=== PATIENT | female | born 1970 | race Caucasian/White ===

== ENCOUNTER 2017-03-03 23:11 | Emergency (ER) | payer OTHER ==
--- NOTE | ~2017-03-03 | ER ---
PATIENT'S NAME: [facility] AGE: 47 Y [address] ROOM: [place] [address] LOCATION: [facility] ADMIT DATE: 03/03/2017 ER/Outpatient Report DISCHARGE DATE: 03/04/2017 FAMILY PHYSICIAN: William Christensen MD ATTENDING PHYSICIAN: Johnathon Araiza Admission date and time documented on the medical record. I saw the patient at 2325 hours. CHIEF COMPLAINT: Right shoulder pain. HISTORY OF PRESENT ILLNESS: This is a 47-year-old female who 2 days ago was doing a slip and slide and fell on her right side right on her shoulder. Re-injured the shoulder today when she had kind of an extension type of injury. Hurts throughout the shoulder girdle. Feels weak in the right arm because of the pain. No other complaints. HOME MEDICATIONS: See attached medication list. ALLERGIES: CODEINE. SOCIAL HISTORY: The patient smokes a pack of cigarettes a day. Nondrinker. SIGNIFICANT PAST MEDICAL HISTORY: Atherosclerotic ischemic heart disease, coronary artery disease, status post myocardial infarction, cerebrovascular disease, cerebrovascular accident, hypertension, dyslipidemia, occ-squvxqz-loinivudi diabetes mellitus type 2, and tobacco abuse. OPERATIONS: Cardiac catheterization with PTCA and stenting. REVIEW OF SYSTEMS: All systems are reviewed by me are negative with the exception of those discussed in the history of present illness. PHYSICAL EXAMINATION: VITAL SIGNS: Temperature 98.4 tympanic, pulse 106, respiratory rate 22, blood pressure 166/87, and O2 saturation on room air is 87%. HEAD: Normocephalic. PATIENT'S NAME: [facility] AGE: 47 Y [address] ROOM: [place] [address] LOCATION: [facility] ADMIT DATE: 03/03/2017 ER/Outpatient Report DISCHARGE DATE: 03/04/2017 FAMILY PHYSICIAN: William Christensen MD ATTENDING PHYSICIAN: Johnathon Araiza EYES EARS, NOSE, THROAT: Clear. NECK: Negative. LUNGS: Clear. HEART: Regular. ABDOMEN: Negative. EXTREMITIES: Moves all 4 extremities. She has decreased range of motion of the right shoulder. Pain throughout the shoulder girdle. NEUROVASCULAR: Intact. Pulse intact. SKIN: Clear. IMAGING DATA: X-ray of the right shoulder showed no fracture, dislocation, or separation. We will review x-ray with the radiologist. IMPRESSION: Right shoulder pain secondary to strain injury with inflammatory changes. Need to consider rotator cuff injury tear or labral tear. PLAN: The patient was given Toradol 60 mg, Phenergan 50 mg IM in the emergency room, [place] 5/325 two orally in the emergency room for pain. Discharged home. Observation. Activity as tolerated. Ice to shoulder intermittently as needed. Right arm sling. Continue home medications and care. Percocet 10/325 as needed for pain; Toradol 10 mg 1 every 6 hours x12 doses; Medrol Dosepak, take as directed. See orthopedic surgeon for consultative exam. Follow up with personal physician as scheduled. Discussed ensued with the patient concerning my findings and recommendations, she understands. MD MADY MCKEON/reggie /[id number] d: 03/04/17 0234 t: 03/04/17 1813, OUTPATIENT REPORT
[2017-03-05] MEDS ORDERED: GLUCOPHAGE1000 MG PO (14:10)
[2017-03-05] MEDS ORDERED: ZIAC 10 MG10 MG PO (14:13)
[2017-03-05] MEDS ORDERED: PERCOCET 10-321 EACH PO (14:13)
[2017-03-05] MEDS ORDERED: TORADOL10 MG PO (14:14)
[2017-03-05] MEDS ORDERED: MEDROL4 M1 PO (14:16)
== END 2017-03-04 00:50 | disposition disaster alternative care site (69) ==
LOC: GACC 23:11
DX: S46.011A Strain of muscle(s) and tendon(s) of the rotator cuff of right shoulder, initial encounter (principal); E11.9 Type 2 diabetes mellitus without complications; I25.10 Atherosclerotic heart disease of native coronary artery without angina pectoris; I25.2 Old myocardial infarction; E78.5 Hyperlipidemia, unspecified; I10 Essential (primary) hypertension; F17.210 Nicotine dependence, cigarettes, uncomplicated; Z79.82 Long term (current) use of aspirin; Z88.5 Allergy status to narcotic agent; Z95.5 Presence of coronary angioplasty implant and graft; Z79.899 Other long term (current) drug therapy
CPT/HCPCS: J1885; J2550

== ENCOUNTER 2017-03-05 08:12 | Inpatient (IN) | payer OTHER ==
[~2017-03-05] VITALS: Ht 162.6 cm
--- NOTE | ~2017-03-05 | OR ---
PATIENT'S NAME: CRISTIANA BOSS [facility] AGE: 47 Y [address] ROOM: [address] [address] LOCATION: GICU ADMIT DATE: 03/05/2017 OR/Procedure Report DISCHARGE DATE: FAMILY PHYSICIAN: GENA SCANLON MD ATTENDING PHYSICIAN: SHMUEL DOWNEY SURGEON: Michel Greer MD PARK ATTENDANT: DATE OF PROCEDURE: 03/07/2017 PROCEDURE PERFORMED: The following lines were placed during the patient's popliteal thrombectomy and patch angioplasty. INDICATIONS: Cristiana Boss is a 47-year-old female with a history of congestive heart failure, 3-vessel coronary artery disease. She is being worked up for coronary artery bypass grafting. After her cast, she was placed on a balloon pump to help with her congestive heart failure, and the balloon pump was hence removed. She was then having a rather cold and pulseless right lower leg. She will be coming down to the OR from the ICU. She currently has a couple of peripheral IVs. I plan a central line for provision of vasoactives and measurement of CVP as well as an arterial line for tight control of blood pressure and frequent blood gas sampling. She agreed to the plan as stated after talking to Obdulio Lopes CRNA. I went over the plan again with her before induction, and she agreed. DESCRIPTION OF PROCEDURE: She was taken to OR #6, where she underwent uneventful induction of general anesthesia. While the airway was being managed, the art line was placed in the left radial by Hussain Allen RN, without any difficulty. Her arm was returned to her side, and the patient was then placed in Trendelenburg position. With the patient in Trendelenburg position, the path of the internal jugular vein was mapped using ultrasound and marked on the neck. I washed my hands. At that point, while the neck was being prepped, gloved, and gowned, and placed in maximal sterile barrier, the IJ was then cannulated with an 18-gauge thin-walled needle. A wire was then passed through the needle without any difficulty. On obtaining dark venous blood, a small skin michele was made. A dilator was then passed, and then a quad lumen 8.5-Liberian 16 cm catheter was placed to its hub in her neck. This was then flushed and fixed to the patient's neck using 2-0 silk and then covered with sterile Tegaderm. All lumens flushed and bruno freely. CVP was 16 on transduction. At the time of this dictation, chest x-ray is pending. Thank you very much for allowing me to participate in Ms. Boss's care. If you have any questions regarding these lines, please do not hesitate to call. PATIENT'S NAME: CRISTIANA BOSS [facility] AGE: 47 Y [address] ROOM: [place] [address] LOCATION: [facility] ADMIT DATE: 03/05/2017 OR/Procedure Report DISCHARGE DATE: FAMILY PHYSICIAN: GENA SCANLON MD ATTENDING PHYSICIAN: SHMUEL DOWNEY MICHEL L MD VENKAT GREER/reggie /[id number] d: 03/07/17 2136 t: 03/10/17 1313, OPERATIVE SUMMARY
--- NOTE | ~2017-03-05 | DS ---
PATIENT'S NAME: LONDON MOELLER [facility] AGE: 47 Y [address] ROOM: [place] [address] LOCATION: GPCU ADMIT DATE: 03/05/2017 Discharge Summary DISCHARGE DATE: 03/25/2017 FAMILY PHYSICIAN: William Christensen MD ATTENDING PHYSICIAN: Shmuel Ramirez PRINCIPAL DIAGNOSES: 1. Acute myocardial infarction. 2. Acute coronary syndrome. 3. Coronary artery disease that is multivessel with planned coronary artery bypass graft. 4. Ischemic right limb, status post above knee amputation. 5. Hypertension. 6. Hyperlipidemia. 7. Acute kidney injury. HOSPITAL COURSE: Please refer to the admission history and physical for a detailed history on initial presentation. This is a 47-year-old female with a history of tobacco dependence and abuse that presented with acute-onset of nausea, vomiting, and on initial evaluation was noted to have elevated troponins and nausea, vomiting deemed to be an angina equivalent. The patient was subsequently taken to the [facility] and was noted to have multivessel disease. The patient was subsequently continued on medical therapy and began evaluation for CABG. The patient during her hospital stay following her initial presentation had complications with right leg pain and worsening ischemia; and upon further evaluation, CAT scan had showed significant ischemia, necrosis, and prompt Vascular Surgery evaluation was requested and the patient subsequently needed an xqagw-tok-ueuo amputation of her right leg. The patient overall did well following that and is continued on her cardiac meds. The patient is to have a CABG in the next 3 to 6 weeks; and in the meantime, is to undergo intensive rehab and is to be transferred to [facility] for that. PHYSICAL EXAMINATION: GENERAL: The patient today is awake, alert, oriented x3, in no acute distress in good spirits. CHEST: Clear to auscultation bilaterally. HEART: S1, S2, regular rate and rhythm. ABDOMEN: Soft, nontender, nondistended. EXTREMITIES: Without edema. MEDICATIONS: Per MAR includin. Aspirin. 2. Plavix. 3. Statin therapy. PATIENT'S NAME: LONDON MOELLER [facility] AGE: 47 Y [address] ROOM: [place] [address] LOCATION: GPCU ADMIT DATE: 03/05/2017 Discharge Summary DISCHARGE DATE: 03/25/2017 FAMILY PHYSICIAN: William Christensen MD ATTENDING PHYSICIAN: Shmuel Ramirez DISPOSITION: Transfer to [facility] for intensive inpatient rehab for planned CABG in next 3 to 6 weeks. Greater than 30 minutes were spent in discharge planning and facilitating. SHMUEL RAMIREZ MD BG/modl /[id number] d: 03/26/17 0458 t: 04/04/17 1510, DISCHARGE SUMMARY
--- NOTE | ~2017-03-05 | ENPV ---
Vascular Lower Extremities Arterial Duplex Procedure Demographics Patient Name LONDON MOELLER Date of Study 03/06/2017 Patient Number [id number] Gender Female Date of 1970 Age 47 Visit Number [id number] Height 162.5 Accession Number [id number] Weight 75.1 Referring Luis E Mak MD Interpreting Chad Le MD Physician Physician Physician Ordering Physician Luis E Mak MD Cinder Block Mason Prosthetic Lab Technician Mary Kate Pearson [facility] Conclusions Summary Technically difficult Duplex imaging of the right leg reveals Stenosis of the distal SFA and near occlusion of the popliteal artery with trickle flow in to the DP and PRELIMINARY SCHOOL PSYCHOLOGIST . Procedure Type of Study: Extremities Arteries:Lower Extremities Arterial Duplex, Arterial Lower Extremity Right. Allergies - Other:(Codeine). - Codiene. - Morphine. Risk Factors - The patient's risk factor(s) include: diabetes mellitus, dyslipidemia, treated arterial hypertension and prior [place] . - The patient has a current/recent (within 1 year) tobacco history. - The patient's last creatinine was 0.8 mg/dl. Velocities are measured in cm/s ; Diameters are measured in cm LE Duplex Measurements + ++-----+ +----+---+ + ! !!Right! !Left! ! ! + ++-----+ +----+---+ + !Location !!PSV !Wave Desc.! !PSV!Wave Desc. ! + ++-----+ +----+---+ + !Femoral !!180 !Biphasic ! !79 !Biphasic ! + ++-----+ +----+---+ + !PFA !!74 !Biphasic ! ! ! ! + ++-----+ +----+---+ + !Prox SFA !!160 !Biphasic ! ! ! ! + ++-----+ +----+---+ + !Mid SFA !!125 !Biphasic ! ! ! ! + ++-----+ +----+---+ + !Dist SFA !!119 !Biphasic ! ! ! ! + ++-----+ +----+---+ + !Prox Popliteal !!32 !Monophasic! ! ! ! + ++-----+ +----+---+ + !Mid Popliteal !!43 !Monophasic! ! ! ! + ++-----+ +----+---+ + !Prox PRELIMINARY SCHOOL PSYCHOLOGIST !!13 !Monophasic! ! ! ! + ++-----+ +----+---+ + !Mid PRELIMINARY SCHOOL PSYCHOLOGIST !!6 !Occluded ! ! ! ! + ++-----+ +----+---+ + !Dist PRELIMINARY SCHOOL PSYCHOLOGIST !! !Occluded ! ! ! ! + ++-----+ +----+---+ + !Prox MARVEL !! !Occluded ! ! ! ! + ++-----+ +----+---+ + !Prox Peroneal !!8 !Monophasic! ! ! ! + ++-----+ +----+---+ + !Mid Peroneal !!7 !Monophasic! ! ! ! + ++-----+ +----+---+ + !Dist Peroneal !!7 !Monophasic! ! ! ! + ++-----+ +----+---+ + Signature dtt: RADHA ROGERS dtd: 03/06/171955 Physician Self Edit
--- NOTE | ~2017-03-05 | OR ---
PATIENT'S NAME: LONDON MOELLER [facility] AGE: 47 Y [address] ROOM: [place] [address] LOCATION: [facility] ADMIT DATE: 03/05/2017 OR/Procedure Report DISCHARGE DATE: FAMILY PHYSICIAN: GENA SCANLON MD ATTENDING PHYSICIAN: SHMUEL DOWNEY SURGEON: Calos Mott MD COORDINATOR OF EVALUATION: DATE OF PROCEDURE: 03/08/2017 PREOPERATIVE DIAGNOSIS: Right leg compartment syndrome. POSTOPERATIVE DIAGNOSIS: Right leg compartment syndrome. PROCEDURE: Four-compartment fasciotomy right leg. ANESTHESIA: General. FINDINGS: Posterior superficial compartment muscle expansion was marked and immediate. Other compartments less so, but the posterior deep compartment did pout moderately as did the anterior compartment. The anterolateral less so. DESCRIPTION OF PROCEDURE: Right lower extremity prepped and draped. Standard four-compartment fasciotomy performed through medial and lateral leg incisions. Flaps developed for both incisions of the subcutaneous tissue and then the fascia overlying the various four compartments was opened with long Metzenbaum scissors widely. The wounds were hemostased and packed with saline gauze and covered with Kerlix roll. MD WALT MOTA/nical /[id number] d: 03/08/17 1950 t: 03/09/17 0846, OPERATIVE SUMMARY
--- NOTE | ~2017-03-05 | ENPV ---
Vascular Lower Extremities Arterial Duplex Procedure Demographics Patient Name LONDON MOELLER Date of Study 03/07/2017 Patient Number [id number] Gender Female Date of 1970 Age 47 Visit Number [id number] Height 162.5 Accession Number [id number] Weight 75.1 Referring Amparo Campbell MD Interpreting Chad Le MD Physician Physician Physician Ordering Chad Le MD Senior Maintenance Technician Physician Web Knitter [facility] Conclusions Summary Duplex imaging of the right leg reveals occlusion of the mid to distal posterior tibial artery. Procedure Type of Study: Extremities Arteries:Lower Extremities Arterial Duplex, Arterial Lower Extremity Right. Indications for Study:Absent pulses. Appropriate Use Criteria:9 Allergies - Other:(Codeine). - Codiene. - Morphine. Patient Status:STAT. Study Location:Inpatient Portable. Technical Quality:Adequate visualization. - Preliminary reported to:Dr. Bonilla in ICU while scanning. Risk Factors - The patient's risk factor(s) include: diabetes mellitus, dyslipidemia, treated arterial hypertension and prior [place] . - The patient has a current/recent (within 1 year) tobacco history. - The patient's last creatinine was 0.8 mg/dl. Velocities are measured in cm/s ; Diameters are measured in cm LE Duplex Measurements + ++-----+ +----+---+ + ! !!Right! !Left! ! ! + ++-----+ +----+---+ + !Location !!PSV !Wave Desc. ! !PSV!Wave Desc. ! + ++-----+ +----+---+ + !Femoral !!172 !Biphasic ! ! ! ! + ++-----+ +----+---+ + !PFA !!162 !Biphasic ! ! ! ! + ++-----+ +----+---+ + !Prox SFA !!138 !Biphasic ! ! ! ! + ++-----+ +----+---+ + !Mid SFA !!78 !Biphasic ! ! ! ! + ++-----+ +----+---+ + !Dist SFA !!76 !Biphasic ! ! ! ! + ++-----+ +----+---+ + !Prox Popliteal !!22 !Biphasic ! ! ! ! + ++-----+ +----+---+ + !Mid Popliteal !!42 !Biphasic ! ! ! ! + ++-----+ +----+---+ + !Dist Popliteal !!38 !Biphasic ! ! ! ! + ++-----+ +----+---+ + !Prox PACKAGE DELIVERY DRIVER !!21 !Biphasic ! ! ! ! + ++-----+ +----+---+ + Signature dtt: RADHA BONILLA dtd: 03/07/17 1727
--- NOTE | ~2017-03-05 | OR ---
PATIENT'S NAME: SUNNI [facility] AGE: 47 Y [address] ROOM: [address] [address] LOCATION: GICU ADMIT DATE: 03/05/2017 OR/Procedure Report DISCHARGE DATE: FAMILY PHYSICIAN: GENA SCANLON MD ATTENDING PHYSICIAN: SHMUEL DOWNEY SURGEON: Rey Bonilla MD HAT MEASURER: DATE OF PROCEDURE: 03/08/2017 Corrected dictated assistant portfolio manager 03/16/2017 AO PREOPERATIVE DIAGNOSIS: Rethrombosis of her previously embolectomized popliteal artery. POSTOPERATIVE DIAGNOSIS: Rethrombosis of her previously embolectomized popliteal artery. PROCEDURE: Right femoral-popliteal bypass with vein. SUPERVISOR RESIDENTIAL: Uma Zuleta RN. SECOND SURGEON: Calos Mott M.D. ANESTHESIA: General. ESTIMATED BLOOD LOSS: 300 mL. OPERATIVE FINDINGS: At the end of the case, there were no audible signals, but the foot was noted to be more pink than it was previously. DESCRIPTION OF PROCEDURE: The patient was brought back to the operating room in extremis. The patient lost posterior tibial signals in the Surgical ICU. We performed a CTA, which showed that her popliteal artery had once again rethrombosed. We brought her back to the operating room. We opened up our previous incision after the patient was placed back under general anesthesia. We dissected down, opened up the fascia once again, identified the popliteal artery which was once again thrombosed. We took down our anastomosis and suture ligated of the proximal end of the popliteal artery. We then made a series of skip incisions along the thigh, removing the saphenous vein until we had adequate length for an above knee to the popliteal bypass. The patient was not responding to heparin and so the during the case, we transferred her to an argatroban drip. We made a counter incision in the above knee region, dissect it down, incised the fascia, and then dissected out the superficial femoral artery. We then made an arteriotomy on the superficial femoral artery. After clamping proximally and distally, we then did a standard 6-0 Prolene anastomosis from the vein to the artery. We then tunneled the vein in a superficial plane, dissected down to the popliteal artery. We did a standard PATIENT'S NAME: SUNNI [facility] AGE: 47 Y [address] ROOM: [place] [address] LOCATION: CU ADMIT DATE: 03/05/2017 OR/Procedure Report DISCHARGE DATE: FAMILY PHYSICIAN: GENA SCANLON MD ATTENDING PHYSICIAN: SHMUEL DOWNEY running 6-0 Prolene anastomosis as well. There was a low resistance signal after the clamps were removed, however, we did not have a DP or PT signal. The foot, however, had become pink, and we believed that this was lack of signal that was likely secondary to prolonged ischemia. The patient's wounds were all closed with 2-0 and 3-0 Vicryl. Skin was closed with artur. The patient tolerated the procedure well and transferred back to the Surgical ICU, intubated, and on argatroban. MD SUMAYA GONZALEZ/nical /[id number] Corrected dictated assistant portfolio manager 03/16/2017 AO d: 03/08/172157 t: 03/23/17 1628, OPERATIVE SUMMARY
--- NOTE | ~2017-03-05 | ENPV ---
Vascular Lower Extremities DVT Study Procedure Demographics Patient Name LONDON MOELLER Date of Study 03/06/2017 Patient Number [id number] Gender Female Date of 1970 Age 47 Visit Number [id number] Height 162.5 Accession Number [id number] Weight 75.1 Referring Luis E Mak MD Interpreting Chad Le MD Physician Physician Physician Ordering Physician Tiera Padron Public Affairs Officer Payroll Human Resources Assistant Mary Kate Pearson [facility], [facility] Conclusions Summary No evidence of deep vein thrombosis or superficial thrombophlebitis in the right lower extremity . Procedure Type of Study: Veins:Lower Extremities DVT Study, Lower Extremity Right. Allergies - Other:(Codeine). - Codiene. - Morphine. Patient Status:STAT. Study Location:Inpatient Portable. Technical Quality:Good visualization. Contrast Medium Amount:9 ml. Risk Factors - The patient's risk factor(s) include: diabetes mellitus, dyslipidemia, treated arterial hypertension and prior [place] . - The patient has a current/recent (within 1 year) tobacco history. - The patient's last creatinine was 0.8 mg/dl. Velocities are measured in cm/s ; Diameters are measured in cm Right Lower Extremities DVT Study Measurements Right 2D and Doppler Measurements + + + + +------+------+ + !Location !Visualized!Compressibility!Thrombosis!Signal!Reflux!Reflux ! ! ! ! ! ! ! !(sec) ! + + + + +------+------+ + !GSV Thigh !Yes !Yes !None !Phasic!No ! ! + + + + +------+------+ + !Common !Yes !Yes !None !Phasic!No ! ! !Femoral ! ! ! ! ! ! ! + + + + +------+------+ + !Prox !Yes !Yes !None !Phasic!No ! ! !Femoral ! ! ! ! ! ! ! + + + + +------+------+ + !Mid Femoral!Yes !Yes !None !Phasic!No ! ! + + + + +------+------+ + !Dist !Yes !Yes !None !Phasic!No ! ! !Femoral ! ! ! ! ! ! ! + + + + +------+------+ + !Popliteal !Yes !Yes !None !Phasic!No ! ! + + + + +------+------+ + !Gastroc !Yes !Yes !None !Phasic!No ! ! + + + + +------+------+ + !PTV !Yes !Yes !None !Phasic!No ! ! + + + + +------+------+ + !Peroneal !Yes !Yes !None !Phasic!No ! ! + + + + +------+------+ + Left Lower Extremities DVT Study Measurements Left 2D and Doppler Measurements + + + + +------+------+ + !Location !Visualized!Compressibility!Thrombosis!Signal!Reflux!Reflux ! ! ! ! ! ! ! !(sec) ! + + + + +------+------+ + !GSV Thigh !Yes !Yes !None !Phasic! ! ! + + + + +------+------+ + !Common !Yes !Yes !None !Phasic! ! ! !Femoral ! ! ! ! ! ! ! + + + + +------+------+ + Impressions Right Impression no dvt seen Left Impression normal on comperison Signature dtt: RADHA ROGERS dtluis alfredo: 03/06/17 1407 Physician Self Edit
--- NOTE | ~2017-03-05 | CON ---
PATIENT'S NAME: SUNNI [facility] AGE: 47 Y [address] ROOM: [address] [address] LOCATION: [facility] ADMIT DATE: 03/05/2017 Consultation DISCHARGE DATE: FAMILY PHYSICIAN: GENA SCANLON MD ATTENDING PHYSICIAN: SHMUEL DOWNEY REFERRING PHYSICIAN: Obdulio Canales MD REFERRING PHYSICIAN: Shmuel Downey MD REASON FOR CONSULT: ST-elevation IA. HISTORY OF PRESENT ILLNESS: This is a 47-year-old white female with a history of diabetes mellitus, persistent tobacco abuse, and known history of coronary artery disease, status post PTCA and stenting of the RCA and LAD with previous ST-elevation MIs in 2007, 2010, and 2011. She also carries a history of CVA in 2012. Reports that she has been experiencing exertional chest discomfort for the last few days. She has been a little more tired and has had more shortness of breath. On the day of admission, during the evening, she awakened with severe shortness of breath and was unable to get comfortable while sleeping. She was then presented to the emergency room and was found to have elevated troponin as well as D-dimer. She did have diffuse crackles with some hypoxia noted. When she was admitted into the emergency room, her O2 saturations were down into the mid 60s, and after oxygen was placed, 85%. Therefore, Dr. Canales was consulted, and she will be taken to the woods laborer emergently. PAST MEDICAL HISTORY: 1. Asthma. 2. Coronary artery disease with 3 prior myocardial infarctions. 3. CVA in 2012. 4. Tobacco dependence. 5. Hypertension. 6. Hyperlipidemia. 7. Diabetes mellitus, type 2, since 2006. 8. History of fractured right leg. 9. Migraines. PAST SURGICAL HISTORY: 1. Right tib-fib fracture with 2 subsequent surgeries. 2. Right third finger debridement. 3. 05/07/2007, right masseteri abscess I and D and dental extraction of #31 and 32. 4. 04/19/2008, PTCI stent x2 of the LAD for ST-elevation IA by Dr. Az Iglesias. PATIENT'S NAME: SUNNI [facility] AGE: 47 Y [address] ROOM: [facility] [place], [place] [address] LOCATION: GICU ADMIT DATE: 03/05/2017 Consultation DISCHARGE DATE: FAMILY PHYSICIAN: GENA SCANLON MD ATTENDING PHYSICIAN: SHMUEL DOWNEY 5. 04/19/2011, PTCI-stent mid LAD ST-elevation IA by Dr. Canales. 6. 04/08/2012, coronary IVUS with PTCI and stent of the RCA, Dr. Tobar. 7. 01/04/2014, she was in the emergency room with chest pain. She did have negative cardiac enzymes and left AMA. SOCIAL HISTORY: She is . She has 2 children. She smokes one pack of cigarettes a day, she has done so for 32 years. Her biological family health history is unknown, although, she does notice someone has multiple sclerosis in the family. Her siblings have heart disease and diabetes mellitus. REVIEW OF SYSTEMS: GENERAL: She has been more fatigued lately. HEAD: She does complain of problems with migraines. EYES: She wears corrective lenses. EARS: No problems with hearing. NOSE: No epistaxis or rhinorrhea. MOUTH: No gingival bleeding, but her teeth are in very poor repair with multiple dental caries. PULMONARY: No cough or hemoptysis. She is a chronic smoker. CARDIOVASCULAR: As per HPI. GASTROINTESTINAL: No problems with nausea, vomiting, or diarrhea other than, on admission, she was nauseated. GENITOURINARY: No problems with urinary frequency or urgency. No dysuria. No hematuria. MUSCULOSKELETAL: She does have claudication symptoms in her lower extremities. PHYSICAL EXAMINATION: VITAL SIGNS: Her weight is 79 kg. Blood pressure 103/53, heart rate is 104, respirations 28, temperature is 98, and saturations on 6 L are 87%. SKIN: Moist. Color is pink, pale. RESPIRATORY: Lung sounds are very diminished. No crackles evident in the bases. CARDIOVASCULAR: Tachy, but regular with normal S1 and S2. ABDOMEN: Soft. Bowel sounds are present. EXTREMITIES: Lower extremities are cool to touch. Very difficult to find distal pulses. They do have delayed capillary refill. LABORATORY DATA: ABGs with pH 7.4, pCO2 of 41, PO2 of 55, CO2 was 27, HC03 of 25.4, saturating 8% on 3 L with a lactate of 1.3. Cardiac enzymes: Initial troponin-I of 1.25, up to 3.26; CPK 284; CK-MB 367; proBNP 1858; CK-MB 8.5 to 20.5. Hemoglobin A1c was 9.2. BUN was 11, creatinine 0.8, sodium 140, potassium was PATIENT'S NAME: LONDON MOELLER [facility] AGE: 47 Y [address] ROOM: [place] [address] LOCATION: [facility] ADMIT DATE: 03/05/2017 Consultation DISCHARGE DATE: FAMILY PHYSICIAN: GENA SCANLON MD ATTENDING PHYSICIAN: SHMUEL DOWNEY 4.3, CO2 of 24, and magnesium 1.7. EKG showing inferior ST changes. ASSESSMENT: Congestive heart failure with elevated troponin-I. She will be taken to woods laborer emergently. Suspect will need hemodynamic support. Further recommendations will be forthcoming as information becomes available. HIRO GLASS APRN FOR OBDULIO CANALES MD TGP/modl /[id number] d: 03/06/17 1324 t: 04/06/17 1510, CONSULTATION REPORT
--- NOTE | ~2017-03-05 | CON ---
PATIENT'S NAME: LONDON MOELLER [facility] AGE: 47 Y [address] ROOM: [address] [address] LOCATION: GICU ADMIT DATE: 03/05/2017 Consultation DISCHARGE DATE: FAMILY PHYSICIAN: GENA SCANLON MD ATTENDING PHYSICIAN: SHMUEL DOWNEY DATE OF CONSULTATION: 03/08/2017 REFERRING PHYSICIAN: Obdulio Kimbrough MD REFERRING PHYSICIAN: Aletha Webster M.D. REASON FOR CONSULTATION: The patient is a 47-year-old female, who was originally admitted on 03/05/2017 for a non-STEMI. She had an echocardiogram performed, which showed an ejection fraction of 45%. Her right ventricular systolic pressure was 65 mmHg with increase in right atrial pressure with dilated IVC. She then underwent a heart catheterization on 03/06/2017 and the catheterization was in the right femoral artery. She was found to have a 3-vessel coronary artery disease, but decompensated left heart failure. Her LAD had a 90% stenosis of the second diagonal, her PDA had a 95% stenosis, LAD in the mid was 50%, in the left circumflex was 60%, and in the mid it was 100% on the distal obturator, second obturator was 80%, proximal obturator was 80%, RCA was 95%, and has a stent in her LAD as well as her mid RCA. Intraarterial balloon pump was placed at that time. The patient on 03/06/2017, lost pulses in her right foot and became very dusky. She had venous Dopplers, which were unremarkable; however, she had arterial Dopplers, which showed right near occlusion of the popliteal artery with trickle flow to the dorsalis pedis and posterior tibial artery. On 03/07/2017, embolectomy was attempted x3, but unsuccessful. She then had a fem-pop bypass. Postop, she remained on the ventilator. This morning, she was having decreased pressures in her arteries and was found to have compartment syndrome and was taken down early this afternoon for a fasciotomy. She just returned to the room on the ventilator and sedated. The patient has a history of significant coronary artery disease. She already has stents placed in 2007, two in her LAD; in 2010 and 2011 in her mid LAD; and she also has a stent in the right ICA that was found on this catheterization. She has had a prior stroke in the right occipital area on MRI scan, however, I am unsure as to the date of that. PAST MEDICAL HISTORY: She has significant coronary artery disease as well as hypertension, hypercholesterolemia, adult onset diabetes, and cerebrovascular disease. PATIENT'S NAME: LONDON MOELLER [facility] AGE: 47 Y [address] ROOM: [place] [address] LOCATION: GICU ADMIT DATE: 03/05/2017 Consultation DISCHARGE DATE: FAMILY PHYSICIAN: GENA SCANLON MD ATTENDING PHYSICIAN: SHMUEL DOWNEY SOCIAL HISTORY: The patient does smoke and she smokes 35+ pack year history of smoking cigarettes. She smokes at least one pack a day and this is all from her medical records. REVIEW OF SYSTEMS: Not obtainable. PHYSICAL EXAMINATION: GENERAL: The patient is heavily sedated postoperatively. She is ventilated. HEENT: There is no scleral icterus present. Teeth, she does have nicotine stains on her front teeth. NECK: Supple without adenopathy or thyromegaly. Trachea is midline. HEART: Regular, but somewhat distant. LUNGS: Have a few rhonchi and enlarged airways, but they are clear anteriorly. ABDOMEN: Bowel sounds are present. It is soft. There is no masses that are palpable. EXTREMITIES: Her right leg is bandaged up. Her right foot is warm and there are pulses by Doppler in bilateral lower extremities. SKIN: No skin redness, petechia, or ecchymoses present. LABORATORY DATA: On admission: Sodium is 140, potassium is 4.3, BUN 11, creatinine 0.8, and albumin 3.2. Platelet count is 271,000, Hemoglobin 12.0, and white count 13.8. PT 10.3, PTT 27, and INR 0.98. PE protocol, CT scan showed clearly B- line and shotty mediastinal hilar adenopathy that are not enlarged; bilateral moderate pleural effusions; fatty liver, question enlargement. ProBNP was 1858. Repeat CBC on 03/06/2017 showed platelet count of 263,000. CPK was significantly elevated as well as her troponin I. She was on heparin drip. IMPRESSION: 1. History of significant coronary artery disease with at least 3-vessel disease, necessitating the need for CABG in the near future. 2. History of former stroke. 3. Embolus in her right leg, possibly secondary to the aortic balloon pump, status post femoral-popliteal bypass and fasciotomy for compartment syndrome. RECOMMENDATIONS: 1. The patient does have a significant history of arterial thrombosis, however, with her significant coronary artery disease that was found on her heart catheterization, it does seem like it is very well likely just atherosclerotic vascular disease, not a hypercoagulable state. However, I think it would be reasonable to get a lupus anticoagulant, PATIENT'S NAME: LONDON MOELLER [facility] AGE: 47 Y [address] ROOM: [place] [address] LOCATION: [facility] ADMIT DATE: 03/05/2017 Consultation DISCHARGE DATE: FAMILY PHYSICIAN: GENA SCANLON MD ATTENDING PHYSICIAN: SHMUEL DOWNEY anticardiolipin antibodies, and beta-2 glycoprotein to see if there might be some acquired increased risk of having arterial thrombosis. I do not think checking for Factor V Leiden and prothrombin gene mutation will be helpful because generally those are associated with venous thrombosis and she obviously has arterial disease. 2. I strongly encouraged her to stop smoking on discharge because that definitely can exacerbate vascular disease. KIRSTEN CORNEJO MD CML/modl /[id number] P d: 03/08/17 2139 t: 03/10/17 0812, CONSULTATION REPORT
--- NOTE | ~2017-03-05 | ER ---
PATIENT'S NAME: LONDON MOELLER [facility] AGE: 47 Y [address] ROOM: [place] [address] LOCATION: [facility] ADMIT DATE: 03/05/2017 ER/Outpatient Report DISCHARGE DATE: FAMILY PHYSICIAN: GENA SCANLON MD ATTENDING PHYSICIAN: SHMUEL RAMIREZ CHIEF COMPLAINT: Chest pain. HISTORY OF PRESENT ILLNESS: The patient arrives by ambulance from home. Per report, the patient was in the mid 60s for oxygenation on room air upon their arrival. She required 15 L nonrebreather to bring her O2 saturations above 90. She states that after vomiting this morning, she had significant chest pain. The pain feels like pressure. It feels like her prior heart attacks. She gives a history of two prior heart attacks in addition to a stroke. She continues to smoke and she does take treatment for hypertension, high cholesterol, and diabetes. She denies any other recent infectious signs or symptoms. She denies any swelling. She denies any prior pulmonary history. She has no infectious signs or symptoms such as fevers or chills. She does have a history of difficulty breathing when she is lying flat, however, that is not what she is feeling today. No other acute issues at this time per her presentation. PAST MEDICAL HISTORY: Notable for coronary artery disease, hypertension, diabetes, asthma as a child, high cholesterol, and cerebrovascular accident. MEDS: Per the record. ALLERGIES: NO KNOWN ALLERGIES. SOCIAL HISTORY: The patient continues to smoke. She denies any alcohol or drug use. She lives in [place], [place]. REVIEW OF SYSTEMS: All systems were reviewed and negative except as noted in the HPI. PHYSICAL EXAMINATION: VITAL SIGNS: Blood pressure 115/53, pulse 103, respiratory rate is 28, temp is 98.9, SpO2 is 87% on 6 L nasal cannula. GCS is 15. Pain is rated at 9/10. GENERAL: An age appropriate female, in obvious pain and moderate distress. NEUROLOGIC: The patient is awake and alert. GCS is 15. No focal deficits. PATIENT'S NAME: SUNNI [facility] AGE: 47 Y [address] ROOM: [place] [address] LOCATION: [facility] ADMIT DATE: 03/05/2017 ER/Outpatient Report DISCHARGE DATE: FAMILY PHYSICIAN: GENA SCANLON MD ATTENDING PHYSICIAN: SHMUEL RAMIREZ No asymmetry. HEENT: Normocephalic, atraumatic. Eyes are PERRL. Oropharynx is clear. Teeth in poor repair. NECK: Supple. Trachea is midline. CHEST/HEART: Tachycardic with no obvious murmurs. LUNGS: With markedly diminished air entry bilateral with no crackles, rhonchi, or rales. No wheezes appreciated. Most diminished at the bases bilateral. ABDOMEN: Soft, nontender, and nondistended. No rebound or guarding. BACK: Normal on inspection and palpation. No CVA tenderness. EXTREMITIES: Warm and well perfused. No signs of edema or peripheral cyanosis. SKIN: Clean, dry, and intact. No obvious rashes. LABORATORY DATA AND X-RAYS: Chest x-ray with possible vascular congestion versus underpenetrated film per my review. EKG is with sinus tachycardia, rate of 105, with otherwise normal intervals and axis. No significant morphologic changes compared to prior EKG of 04/30/2016. ProBNP is 1858. D-dimer 0.75. Troponin I is 1.25. The CMS is notable for a glucose of 291 with no electrolyte abnormalities. LFTs and renal function are within appropriate limits. Magnesium is 1.7 and CK MB is 8.5. CPK is 2.84. INR is below 1. CBC with a slightly elevated white count at 13.8, otherwise unremarkable. Blood gas; pH 7.40, pCO2 is 41, PO2 is 55 on 6 L. Nasal cannula bicarb is 25.4, lactate is 1.3. Chest CT/PE protocol without evidence of PE, possible heart failure. IMPRESSION: 1. Chest pain. 2. Severe hypoxia. 3. Non-ST elevation myocardial infarction versus heart failure. 4. Uncontrolled diabetes. EMERGENCY DEPARTMENT COURSE: The patient was seen and evaluated as above. She received aspirin prior to arrival. She was given DuoNeb and Xopenex with marked improvement in her oxygenation and aeration, but was still requiring 6 L to maintain saturations in the mid 90s. Her chest pain was initially treated with nitroglycerin and her blood pressures began to drop. She was given some morphine, which did relieve her pain down to a 3 or 4; however, her blood pressures became very low. The nitroglycerin was stopped and she was allowed to bring her pressures up with just a little bit of fluid. On exam, there was no clear evidence of heart failure. Her pulmonary exam was markedly improved after breathing treatments. No peripheral signs of heart failure. Her clinical, laboratory, and radiographic findings are most concerning for NSTEMI with right-sided heart failure versus heart failure precipitating NSTEMI, unclear etiology at PATIENT'S NAME: LONDON MOELLER [facility] AGE: 47 Y [address] ROOM: [address] [address] LOCATION: [facility] ADMIT DATE: 03/05/2017 ER/Outpatient Report DISCHARGE DATE: FAMILY PHYSICIAN: GENA SCANLON MD ATTENDING PHYSICIAN: SHMUEL RAMIREZ this time. My suspicion is that she is actually having cardiac ischemia causing the presumed heart failure as her presenting symptoms are chest pain and not shortness of breath. She will need to go to the catheterization lab per Dr. Kimbrough's for further evaluation. She was taken prior to 2nd set of enzymes. Her pain was intervened on with some fentanyl in the interim. This did help her but we were unable to make her chest pain-free. Heparin drip was started and the patient was taken to the catheterization lab. Dr. Ramirez, hospitalist, will admit primarily. CRITICAL CARE: 35 minutes of critical care time was taken on this patient. Critical care time is warranted for severe hypoxia, presumed unstable angina versus NSTEMI and possible fulminant heart failure. Critical care time consisted of patient evaluation, taking report from EMS ordering and titrating nitroglycerin and pain management as well as oxygenation and breathing treatments, and consult with other providers. Ordering and interpreting chest x-ray, EKG, multiple labs and ordering a CT/PE protocol. MD GABBI LOGAN/reggie /[id number] d: 03/05/17 1327 t: 03/08/17 1123, OUTPATIENT REPORT
--- NOTE | ~2017-03-05 | OR ---
PATIENT'S NAME: LONDON MOELLER [facility] AGE: 47 Y [address] ROOM: [place] [address] LOCATION: GICU ADMIT DATE: 03/05/2017 OR/Procedure Report DISCHARGE DATE: FAMILY PHYSICIAN: GENA SCANLON MD ATTENDING PHYSICIAN: SHMUEL DOWNEY SURGEON: Rey Bonilla MD EHS MANAGER: DATE OF PROCEDURE: 03/18/2017 PREOPERATIVE DIAGNOSIS: Nonviable right lower extremity secondary to ischemia. POSTOPERATIVE DIAGNOSIS: Nonviable right lower extremity secondary to ischemia. PROCEDURE PERFORMED: Right above-knee amputation. SALES ENABLEMENT LEAD: KASSIE Johnson. ANESTHESIA: General. ESTIMATED BLOOD LOSS: 300 mL of blood. OPERATIVE FINDINGS: Good viable flaps in the thigh. DESCRIPTION OF PROCEDURE: The patient was brought to the operating room, placed on the operating table, prepped and draped in a sterile manner after being placed under general anesthesia. Preoperative time-out was performed. The patient has been receiving antibiotics on the floor. The patient has status post bypass and fasciotomy for acutely ischemic leg. However, muscles in the calf were completely , despite our efforts. As noted, the patient is proceeding to above-knee amputation. We made a standard fishmouth incision 3 fingerbreadths above the patella. We used Bovie cautery to transect all the soft tissue and muscle. We then suture ligated the neurovascular plexus in the medial aspect. We took out this superficial femoral artery and vein separately and suture ligated them separately. We also placed 2 large clips on the bypass that was performed previously. We then removed the soft tissue in a circumferential manner. We transected the sciatic nerve. We then used a reticulating saw to transect the bone. We then achieved hemostasis and suture ligated. Any further bleeding, we then used Bovie cautery. We then copiously irrigated the wound. We then reapproximated anterior and posterior flaps using 2-0 Vicryl. Skin was closed with artur. The patient tolerated the procedure well and transferred to recovery room back to the floor. PATIENT'S NAME: LONDON MOELLER [facility] AGE: 47 Y [address] ROOM: [place] [address] LOCATION: [facility] ADMIT DATE: 03/05/2017 OR/Procedure Report DISCHARGE DATE: FAMILY PHYSICIAN: GENA SCANLON MD ATTENDING PHYSICIAN: SHMUEL DOWNEY MD SUMAYA GONZALEZ/modl /[id number] d: 03/18/177 t: 03/23/17 1633, OPERATIVE SUMMARY
--- NOTE | ~2017-03-05 | OR ---
PATIENT'S NAME: SUNNI [facility] AGE: 47 Y [address] ROOM: [place] [address] LOCATION: GICU ADMIT DATE: 03/05/2017 OR/Procedure Report DISCHARGE DATE: FAMILY PHYSICIAN: GENA SCANLON MD ATTENDING PHYSICIAN: SHMUEL DOWNEY SURGEON: Rey Boinlla MD POULTICE MACHINE OPERATOR: DATE OF PROCEDURE: 03/17/2017 PREOPERATIVE DIAGNOSIS: Ischemia, right leg. POSTOPERATIVE DIAGNOSIS: Ischemia, right leg. PROCEDURE: Exploration of the right leg, debridement, and washout. MUSICAL INSTRUMENT MAKER: KASSIE Johnson. ANESTHESIA: General. ESTIMATED BLOOD LOSS: 10 mL. OPERATIVE FINDINGS: Entire posterior and anterior compartment of leg muscles ischemia , unable to be salvaged. Leg is not salvageable. DESCRIPTION OF PROCEDURE: The patient was brought to the operating room, placed supine on the table, placed under general anesthesia, prepped and draped in a sterile manner. Preop time-out was performed. The patient has been receiving preoperative antibiotics on the floor. We removed the wound VACs, prepped and draped in a sterile manner. We then began to explore the leg. The lateral compartment muscles were viable. We attempted to explore the anterior and posterior compartments. The muscle was gelatinous and nonresponsive to Bovie touch. There was no contractility. We explored the muscle and debrided some of it superficially and then tried to look for deeper layers that were viable, but there was none. The patient unfortunately will require an above-knee amputation tomorrow. The patient's leg was wrapped in Kerlix and transferred back to the Surgical ICU. REY BONILLA MD FKM/modl PATIENT'S NAME: SUNNI [facility] AGE: 47 Y [address] ROOM: [place] [address] LOCATION: GICU ADMIT DATE: 03/05/2017 OR/Procedure Report DISCHARGE DATE: FAMILY PHYSICIAN: GENA SCANLON MD ATTENDING PHYSICIAN: SHMUEL DOWNEY /[id number] d: 03/17/172031 t: 03/23/17 1631, OPERATIVE SUMMARY
--- NOTE | ~2017-03-05 | OR ---
PATIENT'S NAME: LONDON MOELLER [facility] AGE: 47 Y [address] ROOM: [place] [address] LOCATION: [facility] ADMIT DATE: 03/05/2017 OR/Procedure Report DISCHARGE DATE: FAMILY PHYSICIAN: GENA SCANLON MD ATTENDING PHYSICIAN: SHMUEL DOWNEY SURGEON: Rey Bonilla MD CLINICAL LAB TECHNOLOGIST: [employer] Remittance Clerk: Calos Mott MD [employer] Senior Recruiter: KASSIE Barrientos. DATE OF PROCEDURE: 03/07/2017 PREOPERATIVE DIAGNOSIS: Ischemia, right leg. POSTOPERATIVE DIAGNOSIS: Ischemia, right leg. PROCEDURE: Popliteal embolectomy with patch angioplasty. ANESTHESIA: General. ESTIMATED FLUID LOSS: 300 mL. OPERATIVE FINDINGS: Good PT signal at the end of the case. DESCRIPTION OF PROCEDURE: The patient was brought to the operating room, placed supine on the operating table, and prepped and draped in a sterile manner. Preoperative time-out was performed. The patient received preoperative antibiotics. We made a standard medial approach to the popliteal artery, transected the fascia, brought out gastrocnemius inferiorly, and dissected out the popliteal artery. We made a transverse incision, and then used Jessica catheters to remove clot from both proximal and distal. We then re-anastomosed the artery using interrupted 6-0 Prolene. There was, however, no inflow. We took down the anastomosis and examined more proximally, and there appeared to be a flap which we tacked down with 7-0 Prolene. We then passed the artery with the bovine pericardial patch. We removed the clamps. There was excellent flow into the posterior tib, which was confirmed on Doppler. Heparin was not reversed. Deep layers were closed with 2-0 and 3-0 Vicryl. Skin was closed with artur. The patient tolerated the procedure well and was transferred to the recovery room and back to the Surgical ICU. REY BONILLA MD FK/modl PATIENT'S NAME: LONDON MOELLER [facility] AGE: 47 Y [address] ROOM: [place] [address] LOCATION: GICU ADMIT DATE: 03/05/2017 OR/Procedure Report DISCHARGE DATE: FAMILY PHYSICIAN: GENA SCANLON MD ATTENDING PHYSICIAN: SHMUEL DOWNEY /[id number] d: 03/08/17 0028 t: 03/11/17 1014, OPERATIVE SUMMARY
--- NOTE | ~2017-03-05 | ECHO ---
Transthoracic Echocardiography Report (TTE) Demographics Patient Name LONDON MOELLER Date of Study 03/14/2017 Patient Number [id number] Visit Number [id number] Date of 1970 Room Number G6205 Gender Female Number Age 47 year(s) Referring Amparo Campbell [employer] Fredy RVT, RDCS Physician MD Phan Physician Interpreting Jaya Wiseman MD Wire Cutter Physician Supervising Ordering Tiera Padron MD, MD/MLP Physician Nurse Stress Appeals Examiner Conclusions Summary The estimated left ventricular ejection fraction is 50%. Mild to moderate concentric left ventricular hypertrophy. Diastolic assessment reveals Grade II pseudonormal diastolic function . Mild mitral regurgitation by color Doppler. No evidence of pericardial effusion. Large left sided pleural effusion present. Procedure Type of Study TTE procedure:2D Echocardiogram, M-Mode, Doppler , Color Doppler. Procedure Date Date: 03/14/2017 Start: 03:05 PM Study Location: Inpatient Portable Technical Quality: Adequate visualization Indications:CHF and Myocardial infarction. Appropriate Use Criteria: 9 Patient Status: Routine HR: 81 bpm BP: 99/50 mmHg Allergies - Other:(Codeine). - Codiene. - Morphine. M-Mode/2D Measurements LV Diastolic Dimension: 4.66 cm LV Systolic Dimension: 3.24 cm LV Septum Diastolic: 1.44 cm LV PW Diastolic: 1.13 cm AO Root Dimension: 2.9 cm Cardiac Output: 3.72 l/min AV Cusp Separation: 1.4 cm RV Diastolic Dimension: 2.58 cm LA volume: 52 ml LVOT: 1.9 cm RV Base: 2.08 cm LVOT VTI: 16.2 cm RV Mid: 1.6 cm LV Stroke volume: 45.91 ml TAPSE: 2.26 cm TDI-S': 11.7 cm/s Doppler Measurements AV Peak Velocity: 1.08 m/s MV Peak E-Wave: 1.11 m/s AV Peak Gradient: 4.67 mmHg MV Peak A-Wave: 0.59 m/s AV Mean Gradient: 3 mmHg MV E/A Ratio: 1.89 LVOT Peak Velocity: 1.03 m/s MV P1/2t: 49 msec PV Peak Velocity: 0.54 m/s E' Septal Velocity: 0.07 m/s PV Peak Gradient: 1.16 mmHg E' Lateral Velocity: 0.07 m/s A' Septal Velocity: 0.07 m/s A' Lateral Velocity: 0.07 m/s Findings Left Ventricle Mild to moderate concentric left ventricular hypertrophy. Diastolic assessment reveals Grade II pseudonormal diastolic function . Right Ventricle Normal right ventricle structure and function. Left Atrium Normal left atrial size. Right Atrium Normal right atrial size. IVC was not seen, poor subcostal images. Mitral Valve Mild mitral regurgitation by color Doppler. Aortic Valve There is trivial aortic regurgitation by color Doppler. Tricuspid Valve Normal tricuspid valve structure and function. Pulmonic Valve Normal pulmonic valve structure and function. Pericardial Effusion No evidence of pericardial effusion. Pleural Effusion Pleural effusion present. Signature dtt: JENNIFER HATHAWAY dtd: 03/14/17 [id number] Physician Self Edit
--- NOTE | ~2017-03-05 | CON ---
PATIENT'S NAME: SUNNI [facility] AGE: 47 Y [address] ROOM: [address] [place], [place] [address] LOCATION: [facility] ADMIT DATE: 03/05/2017 Consultation DISCHARGE DATE: FAMILY PHYSICIAN: GENA SCANLON MD ATTENDING PHYSICIAN: SHMUEL DOWNEY DATE OF CONSULTATION: 03/07/2017 REFERRING PHYSICIAN: Obdulio Kimbrough MD REASON FOR CONSULT: Cool, painful right lower extremity. HISTORY OF PRESENT ILLNESS: This is a 47-year-old, female, currently in the intensive care unit at [facility]. The patient initially presented to the emergency room on 03/05/2017 after an acute onset of nausea, vomiting, and chest tightness. The patient has a known history of coronary artery disease. She went to the stucco laborer for non-STEMI and was found to have 3-vessel disease. Currently, they are planning a CABG for her 3-vessel disease. Yesterday after removal of her right groin intra-aortic balloon pump and application of a FemoStop, the patient developed a cool, painful, discolored right lower extremity. Arterial Doppler ordered and the patient was found to have near occlusion of right popliteal with trickle flow into her dorsalis pedis and METAPHYSICIST. The patient also with SFA stenosis, likely chronic. The patient reports pain from her knee down into her foot. She reports increased pain and decreased sensation. Right lower extremity is very painful to touch. The patient is a current smoker. She has smoked 1 pack per day for the last 35 years. The patient is a type 2 diabetic. The patient has been continued on heparin. She is tolerating her pain well with [employer] ANALYST. She is not on IV antibiotics. At this time, she denies any chest pain, shortness of breath, nausea, or vomiting. She denies any lightheadedness or dizziness. She does have a history of CVA in 2013, but denies any TIA or stroke-like symptoms. She denies any edema. PAST MEDICAL HISTORY: 1. Asthma. 2. Coronary artery disease. 3. CVA in 2012. 4. Type 2 diabetes. 5. Hypertension. 6. Hyperlipidemia. 7. Tobacco dependence. SURGICAL HISTORY: 1. Right tib-fib fracture with 2 subsequent surgeries. PATIENT'S NAME: SUNNI, [facility] AGE: 47 Y [address] ROOM: [address] [place], [place] [address] LOCATION: [facility] ADMIT DATE: 03/05/2017 Consultation DISCHARGE DATE: FAMILY PHYSICIAN: GENA SCANLON MD ATTENDING PHYSICIAN: SHMUEL DOWNEY 2. Right third finger debridement. 3. PTCI with stent x2 of LAD in 2007. 4. Stent to mid LAD in 2010 and stent in 2011. FAMILY HISTORY: Siblings with heart disease and diabetes. SOCIAL HISTORY: The patient has 09-[id number]-per-day smoking history. She denies any alcohol or illicit drug use. CURRENT MEDICATIONS: See medication records. ALLERGIES: NO KNOWN ALLERGIES. REVIEW OF SYSTEMS: A 10-point review of systems completed, positives addressed in history of presenting illness. PHYSICAL EXAMINATION: VITAL SIGNS: Temperature 98.8, heart rate 93, respiratory rate 15, blood pressure 89/62, and oxygen saturations 92% on 6 L per nasal cannula. GENERAL: The patient is alert and oriented x3, in mild distress. She is a good historian. SKIN: Warm, pink, and dry throughout; however, her right lower extremity from devlin down is mottled with purple blotchy discoloration. HEENT: Head: Normocephalic and atraumatic. Ears: Without drainage. Eyes: Sclerae white. Conjunctivae pink. Extraocular movements intact. PERRLA. Nose: Without drainage. Throat: Oral mucosa pink and moist. No exudate or erythema. NECK: Without adenopathy. No evidence of JVD. Trachea midline. RESPIRATORY: Clear to auscultation bilaterally, even and nonlabored. CARDIOVASCULAR: Regular rate and rhythm. No murmur or extra sounds. GASTROINTESTINAL: Bowel sounds active x4. Soft and nontender. No organomegaly. EXTREMITIES: I am unable to Doppler dorsalis pedis or posterior tibialis on her right lower extremity with bedside Doppler. Her right groin appears stable without hematoma. She has bilateral palpable femoral pulses. There is no edema bilaterally. Cyanosis to right lower extremity. Left lower extremity with positive pulses throughout. No cyanosis of this extremity. Active range of motion throughout. NEUROLOGICAL: No focal deficit. She does have decreased sensation to her right lower extremity with painful burning sensation. PATIENT'S NAME: SUNNI [facility] AGE: 47 Y [address] ROOM: [address] [place], [place] [address] LOCATION: [facility] ADMIT DATE: 03/05/2017 Consultation DISCHARGE DATE: FAMILY PHYSICIAN: GENA SCANLON MD ATTENDING PHYSICIAN: SHMUEL DOWNEY DIAGNOSTICS AND LABORATORY DATA: Hematology: White blood cell count 14, hemoglobin 11.1, hematocrit 32.7, and platelets 254. Chemistry: Sodium 134, potassium 4, chloride 102, CO2 20, BUN 9, creatinine 0.6. Platelets 209. Arterial duplex with near occlusion of right popliteal artery with trickle flow into the DP and METAPHYSICIST. ASSESSMENT AND PLAN: Acute arterial occlusion with critical limb ischemia. The patient has likely embolized clot post intra-aortic balloon pump removal. The patient with significant signs of compromised flow to right foot and distal right lower extremity. The patient is to continue on heparin drip. Dr. Bonilla will be emergently taking the patient to the OR for right popliteal. The patient is to remain n.p.o. She is to have 2 g of Ancef prior to OR. I would recommend that the patient continues on aspirin and Lipitor postoperatively. The patient also to receive counseling on smoking cessation. Further plan to follow after surgical intervention. The patient is aware that loss of right lower extremity is a potential. Thank you for your consultation and for allowing us to participate in the care of this patient. LINDA LEE APRN FOR RADHA BONILLA MD TO/modl /[id number] d: 03/07/17 2339 t: 03/28/17 1043, CONSULTATION REPORT
--- NOTE | ~2017-03-05 | CON ---
PATIENT'S NAME: LONDON MOELLER [facility] AGE: 47 Y [address] ROOM: [address] [address] LOCATION: GICU ADMIT DATE: 03/05/2017 Consultation DISCHARGE DATE: FAMILY PHYSICIAN: GENA SCANLON MD ATTENDING PHYSICIAN: SHMUEL DOWNEY DATE OF CONSULTATION: 03/07/2017 REFERRING PHYSICIAN: Obdulio Kimbrough MD REQUESTING PHYSICIAN: Dr. Michel Lam from the Anesthesia Services. REASON FOR CONSULTATION: Evaluation and management of a patient with acute respiratory failure requiring mechanical ventilation. CHIEF COMPLAINT: Acute respiratory failure. HISTORY OF PRESENT ILLNESS: This is a 47-year-old female with history of coronary artery disease, type 2 diabetes, and ongoing tobacco abuse, who was admitted on March 05, 2017, for acute onset of nausea, vomiting, and chest tightness. She was eventually diagnosed with non-ST elevation myocardial infarction. Left heart catheterization revealed multivessel disease, and the patient was considered for coronary artery bypass graft surgery. However, she developed acute occlusion of the right popliteal artery. She was taken to the operating room today for embolectomy with popliteal patch angioplasty. The surgery was very long, for approximately 4 hours. At the end of the procedure, extubation was attempted, but the patient's oxygen saturations dropped to the 40s. For this reason, she was kept intubated and transferred back to our intensive care unit. Prior to surgery, she was requiring up to 4 L of oxygen. She is not on supplemental oxygen at home. Dr. Lam from the Anesthesia Services asked me to come and evaluate the patient and help with mechanical ventilator management given her significant acute respiratory failure. At the time of my evaluation, the patient was intubated and sedated in the intensive care unit. She was on assist-control mode with a tidal volume of 400, respiratory rate of 16, 100% FiO2, and a PEEP of 5. Recruitment maneuvers did not improve her oxygenation, with oxygen saturations staying in the mid 80s. Her blood pressure was also low as recorded by arterial line with the systolic in the 90s and diastolic in the 40s. However, with head of bed elevation, her blood pressure and oxygenation subsequently improved. An ABG done after transfer to the intensive care unit revealed a pH of 7.36, pCO2 of 48, and PO2 of 72 while on supplemental oxygen at 100% FiO2. PATIENT'S NAME: LONDON MOELLER [facility] AGE: 47 Y [address] ROOM: [address] [place], [place] [address] LOCATION: [facility] ADMIT DATE: 03/05/2017 Consultation DISCHARGE DATE: FAMILY PHYSICIAN: GENA SCANLON MD ATTENDING PHYSICIAN: SHMUEL DOWNEY PAST MEDICAL HISTORY: 1. Coronary artery disease, status post multiple stents. 2. Type 2 diabetes. 3. Hypertension. 4. Hyperlipidemia. 5. Tobacco abuse. CURRENT MEDICATIONS: Reviewed, as per chart. FAMILY HISTORY: Her parents had significant coronary artery disease. SOCIAL HISTORY: She is an active smoker and lives at home with her . There is no history of alcohol or illicit drug abuse. ALLERGIES: NO KNOWN DRUG ALLERGIES. REVIEW OF SYSTEMS: Could not be performed because of the patient's clinical status. She was intubated and sedated at the time of my evaluation. PHYSICAL EXAMINATION: VITAL SIGNS: Temperature was 101.2; heart rate was 103; respiratory rate was 19; blood pressure was 120/84; and oxygen saturation at the beginning was 85% on 100% FiO2 and a PEEP of 5, but then went up to 97% while on 100% FiO2 and PEEP of 8 with the patient sitting up. Weight 78.7 kg and height 5 feet 4 inches with a BMI of 29.8. GENERAL: She was intubated and sedated with a sedation analgesia score of 2. HEENT: Atraumatic head. PERRLA. Anicteric sclerae. Moist oral mucosa. NECK: Supple. No JVD. No LAD. Trachea midline. No thyromegaly. RESPIRATORY: Diminished breath sounds at both lung bases with few crackles. Otherwise, clear to auscultation. CARDIOVASCULAR: Regular rhythm. Tachycardic on my exam with a heart rate of 108. No murmur, rubs, or gallops. ABDOMEN: Soft, nontender, and nondistended. Bowel sounds were present. EXTREMITIES: No lower extremity edema. She had bluish discoloration of the right leg and right foot with absent posterior tibialis pulses on the right, although she had a popliteal pulse on the right which was detected by Doppler. LABORATORY DATA: Pertinent data as per History of Present Illness. WBC was 14, hemoglobin was 11.1, hematocrit was 32.7, and platelets were 254. Sodium was 134, potassium PATIENT'S NAME: LONDON MOELLER [facility] AGE: 47 Y [address] ROOM: [address] [place], [place] [address] LOCATION: [facility] ADMIT DATE: 03/05/2017 Consultation DISCHARGE DATE: FAMILY PHYSICIAN: GENA SCANLON MD ATTENDING PHYSICIAN: SHAYAN,BARKOT was 4, chloride of 102, total serum bicarbonate of 26, BUN of 9, and creatinine of 0.6. Albumin was 3.1. Cardiac echo revealed left ventricular ejection fraction of 45% with severe pulmonary hypertension with an estimated RVSP of 65 mmHg. She had pulmonary valve regurgitation and mild mitral regurgitation. ASSESSMENT: 1. Acute respiratory failure. This is multifactorial, mainly due to anesthesia effect with intraoperative atelectasis. She also has evidence of congestive heart failure with decreased ejection fraction and pulmonary hypertension that are major contributors to her hypoxia too. She is still requiring high levels of oxygen. 2. Congestive heart failure. This is of systolic type with low ejection fraction due to multivessel coronary artery disease. 3. Pulmonary hypertension. This is multifactorial, most likely secondary to left heart disease . 4. Tobacco abuse - this places her at high risk of having chronic obstructive pulmonary disease. 5. Coronary artery disease with recent non-ST elevation myocardial infarction. She is in need of CABG. 6. Acute arterial occlusion of the right popliteal artery. She is status post right popliteal embolectomy with popliteal patch angioplasty. PLAN: 1. We will continue with mechanical ventilation with slightly higher level of PEEP to improve recruitment of the alveolar units as long as her blood pressure allows. 2. We will follow up ABGs, and we will increase the tidal volume for now, but we will try to keep the plateau pressure less than 30. 3. I will start her on Versed drip for goal sedation analgesia of around 3. 4. We will follow up cardiology, vascular surgery, and cardiothoracic surgery team's recommendations. 5. If her hemodynamic status is stable, she may benefit from IV diuresis. 6. I will start her on bronchodilators. 7. We will follow up chest x-ray closely. The current assessment and plan was discussed with the patient's family, Dr. Bonilla, the vascular surgeon, and Dr. Webster, the hospitalist involved in her care. I spent 45 minutes of critical care time managing acute respiratory failure in a patient with multiple comorbidities. I personally reviewed the data, coordinated care among healthcare providers, and personally updated the family at the bedside. I would like to thank you, Dr. Lam, for giving me the opportunity to participate in this patient's care. PATIENT'S NAME: LONDON MOELLER [facility] AGE: 47 Y [address] ROOM: [place] [address] LOCATION: [facility] ADMIT DATE: 03/05/2017 Consultation DISCHARGE DATE: FAMILY PHYSICIAN: GENA SCANLON MD ATTENDING PHYSICIAN: SHMUEL DOWNEY MD RFN/modl /[id number] d: 03/08/17 1208 t: 03/08/17 1335, CONSULTATION REPORT
--- NOTE | ~2017-03-05 | ENPV ---
Vascular Lower Extremity Vein Mapping Procedure Demographics Patient Name LONDON MOELLER Date of Study 03/07/2017 Patient Number [id number] Gender Female Date of 1970 Age 47 Visit Number [id number] Height 162.5 Accession Number [id number] Weight 75.1 Referring Amparo Campbell MD Interpreting Chad Le MD Physician Physician Physician Ordering Chad Le MD Casting Machine Service Operator Physician Transport Driver Fredy [facility], [facility] Conclusions Summary The right great saphenous vein was mapped an appears adequate for surgical use. The left great saphenous vein was mapped an appears adequate for surgical use. Procedure Type of Study: Veins:Lower Extremity Vein Mapping, Vein Mapping. Additional Indications:preop Allergies - Other:(Codeine). - Codiene. - Morphine. Patient Status:STAT. Study Location:Inpatient Portable. Technical Quality:Adequate visualization. Risk Factors - The patient's risk factor(s) include: diabetes mellitus, dyslipidemia, treated arterial hypertension and prior NH . - The patient has a current/recent (within 1 year) tobacco history. - The patient's last creatinine was 0.8 mg/dl. Velocities are measured in cm/s ; Diameters are measured in cm + ++--------++--------+ !Superficial - Great Saphenous Vein !!Right !!Left ! + ++--------++--------+ !Location !!Diameter!!Diameter! + ++--------++--------+ !Sapheno Femoral Junction !!0.65 !!0.52 ! + ++--------++--------+ !GSV High Thigh !!0.41 !!0.37 ! + ++--------++--------+ !GSV Mid Thigh !!0.31 !!0.24 ! + ++--------++--------+ !GSV Low Thigh !!0.3 !!0.31 ! + ++--------++--------+ !GSV Knee !!0.3 !!0.23 ! + ++--------++--------+ !GSV High Calf !!0.27 !!0.25 ! + ++--------++--------+ !GSV Mid Calf !!0.28 !!0.18 ! + ++--------++--------+ !GSV Low Calf !!0.19 !!0.21 ! + ++--------++--------+ Signature dtt: RADHA ROGERS: 03/07/17 1753
--- NOTE | ~2017-03-05 | ECHO ---
Transthoracic Echocardiography Report (TTE) Demographics Patient Name LONDON MOELLER Date of Study 03/06/2017 Patient Number [id number] Visit Number [id number] Date of 1970 Room Number G6213 Accession Number [id number] Gender Female Age 47 year(s) Referring Amparo Campbell Tea Tree Farmer Mary Kate Pearson RD, Physician RVT Tiera Padron MD Physician Interpreting Luis E Mak MD Truck Sales Representative Physician Supervising Ordering Physician Teira Padron MD, MD/MLP Nurse Stress Installer Molding And Trim Conclusions Summary The estimated left ventricular ejection fraction is 45%. The tricuspid valve is not well visualized. There is severe pulmonary hypertension. The pulmonary pressure (RVSP) is 65 mmHg. Pulmonic valve regurgitation by color Doppler. Procedure Type of Study TTE procedure:2D Echocardiogram. Procedure Date Date: 03/06/2017 Start: 02:17 PM Study Location: Inpatient Portable Technical Quality: Adequate visualization Indications:Pre surgical clearance. Additional Indications:pre op CABG Appropriate Use Criteria: 9 Patient Status: Routine Rhythm: Sinus tachycardia HR: 111 bpm Allergies - Other:(Codeine). - Codiene. - Morphine. M-Mode/2D Measurements LV Diastolic Dimension: 5.2 cm LV Systolic Dimension: 4.69 cm LV Septum Diastolic: 0.78 cm LV Septum Systolic: 4.91 cm LV PW Diastolic: 0.95 cm AO Root Dimension: 2 cm Cardiac Output: 7.07 l/min LA Dimension: 3.3 cm RV Diastolic Dimension: 1.41 cm LVOT: 2.1 cm LVOT VTI: 18.4 cm IVC Inspiration: 1.08 cm LV Stroke volume: 63.7 ml RV Mid: 2.78 cm RV Length: 6.3 cm TAPSE: 2.57 cm TDI-S': 18.2 cm/s Doppler Measurements AV Peak Velocity: 1.87 m/s MV Peak E-Wave: 1.65 m/s AV Peak Gradient: 13.99 mmHg MV Peak A-Wave: 0.78 m/s AV Mean Gradient: 6 mmHg MV E/A Ratio: 2.12 LVOT Peak Velocity: 1.09 m/s MV P1/2t: 39 msec TR Gradient:50.13 mmHg PV Peak Velocity: 1.02 m/s Estimated RAP:15 mmHg PV Peak Gradient: 4.16 mmHg Estimated RVSP: 65 mmHg Estimated PASP: 65.13 mmHg E' Septal Velocity: 0.1 m/s A' Septal Velocity: 0.09 m/s E' Lateral Velocity: 0.08 m/s A' Lateral Velocity: 0.12 m/s Findings Left Ventricle The estimated left ventricular ejection fraction is 45%. Diastolic function indeterminate due to patient's arrhythmia. Right Ventricle Normal right ventricle structure and function. Left Atrium Normal left atrial size. Right Atrium Normal right atrial size. Dilated IVC with poor inspiratory collapse consistent with elevated RA pressure. Mitral Valve Mild mitral regurgitation by color Doppler. Mild mitral annular calcification. Aortic Valve The aortic valve is mildly sclerotic. Tricuspid Valve The tricuspid valve is not well visualized. There is severe pulmonary hypertension. The pulmonary pressure (RVSP) is 65 mmHg. Pulmonic Valve Pulmonic valve regurgitation by color Doppler. Pericardial Effusion Trivial posterior pericardial effusion. Miscellaneous Visualized portions of the aortic root and ascending aorta appear normal in size. Pleural Effusion No evidence of pleural effusion. Signature dtt: Obdulio Kimbrough (cardio) dtd: 03/06/17 1417 Physician Self Edit
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
--- NOTE | ~2017-03-05 | HP ---
PATIENT'S NAME: CRISTIANA BOSS [facility] AGE: 47 Y [address] ROOM: [address] [address] LOCATION: GICU ADMIT DATE: 03/05/2017 History & Physical DISCHARGE DATE: FAMILY PHYSICIAN: GENA SCANLON MD ATTENDING PHYSICIAN: SHMUEL DOWNEY DATE OF SERVICE: 03/11/2017 Cristiana Boss was admitted to the hospital several days ago earlier this week. She presented with chest pain. She is known to be diabetic, has hypertension, previous history of coronary artery disease. It was felt that she was a candidate for coronary bypass graft, but she has developed complications from her balloon pump being removed from the leg and it looks like it is being managed by the mechanical specialist, the [facility], and Dr. Vahe Monae and his team cardiac surgeon. Since admission going forward, I will not be involved in the decisions being made in her care or management. I will simply follow along on social basis because I would see her as an outpatient and the family understands this. GENA SCANLON MD CANTEEN MANAGER/modl /[id number] D: T: HISTORY & PHYSICAL
--- NOTE | ~2017-03-05 | CATH ---
Cardiac Diagnostic + PCI Report Demographics Patient Name SUNNI Sauceda Gender Female Date of 1970 Age 47 year(s) Patient Number [id number] Date of Study 03/05/2017 Visit Number [id number] Room Number G6[address] [place] [id number] Ht 412.75 cm Wt 34.06 kg Referring Amparo Campbell Primary Physician Physician MD Performing Luis E Mak MD Secondary Physician Physician Diagnostic Luis E Mak MD Assisting Physician Physician Interventional Luis E Mak MD Physician Chargeback Specialist Physician Findings and Conclusions Diagnostic Findings and Conclusion 1. 3 vessel CAD 2. LVEDP 34-40 3. Decompensated Left Heart Failure Diagnostic Recommendations 1. IABP 2. CT surgery consult for 5 vessel CABG Interventional Findings and Conclusion Successful insertion of IABP Interventional Recommendations Consult with CT surgeon for CABG Procedure Description The patient was brought to the diagnostic cardiac catheterization-EP laboratory in the fasting, non-sedated state. Informed consent was obtained in the written and verbal form after the risks and benefits were explained. The patient had no further questions and agreed to proceed. The planned puncture-incision site(s) were shaved and prepped with ChloraPrep and draped in the usual sterile manner. Conscious sedation, supplemental oxygen, and pain control medications were delivered by a registered nurse under physician guidance. Surface ECG rhythm, blood pressure measurement, and pulse oximetry were monitored throughout the procedure. Arterial access. The access site was infiltrated with lidocaine. The vessel was entered with the Seldinger technique. A sheath was advanced into the vessel and used for catheter placement. Left heart catheterization. A catheter was advanced across the aortic valve to the left ventricle under fluoroscopic guidance. Resting hemodynamics were obtained. Selective left coronary angiography. A catheter was advanced into the left coronary vessel ostium under Fluoroscopic guidance. Contrast was injected by hand. Images were obtained in multiple projections. Selective right coronary angiography. A catheter was advanced into the right coronary vessel ostium under fluoroscopic guidance. Contrast was injected by hand. Images were obtained in multiple projections. IABP placement. The balloon catheter was advanced into the aorta and the tip was fluoroscopically positioned just distal to the left subclavian artery origin. The floppy guidewire was removed, and the central lumen of the catheter was flushed and attached to a pressure transducer. Balloon pumping was initiated, adjusting inflation and deflation times to maximize diastolic augmentation and minimize presystolic LV afterload. The intra-aortic balloon catheter was sutured in place at the end of the procedure. Arterial artery hemostasis was achieved. The patient was transferred to a regular nursing floor via cart accompanied by a nurse. The patient left the laboratory in stable condition. Diagnostic Cath Status: Emergency Interventional Cath Status: Emergency Procedure Procedure Type Diagnostic procedure:Angiography:, Coronary Angios /[facility] PCI procedure:Support:, IABP:, Insertion Indications: Chest pain. Angiographic Findings Dominance: Right Cardiac Arteries and Lesion Findings LMCA: Normal (0% Stenosis).Large, normal LAD: Medium, patent stents, mild ISR in mid LAD. Diag 2 medium.There is a previous stent on Mid LAD Mid subsection showing diffuse ISR. Lesion on 2nd Diag: Ostial.90% stenosis . Lesion on Mid LAD: Mid subsection.80% stenosis . LCx: Nondominant, Small OM1, medium OM2. Lesion on Prox CX: Ostial.60% stenosis . Lesion on Mid CX: Mid subsection.100% stenosis . Lesion on 2nd Ob Cheryle: Ostial.80% stenosis . Lesion on 2nd Ob Cheryle: Proximal subsection.80% stenosis . RCA: Dominant mid ISR, PL: subtotaled with L-R collaterals, PDA:Ostial 95% with rest good. There is a previous stent on Mid RCA showing diffuse ISR. There is a previous stent on Prox RCA showing diffuse ISR. Lesion on Mid RCA: Mid subsection.75% stenosis . Lesion on R PDA: Ostial.95% stenosis . Cardiac Collaterals - collateral flow from the LMCA to the Mid RCA. Coronary Tree Procedure Data Procedure Date Date: 03/05/2017Start: 11:05 AMEnd: 11:42 AM Entry Locations - Retrograde Percutaneous access was performed through the Right Femoral artery (Primary location). A 6 Fr sheath was inserted. Procedure Medications Order and Administration + + +-------+------+ !Time !Medication !Dosage !Route ! + + +-------+------+ !03/05/2017 10:57 AM !Fentanyl !25 mcg !I.V. ! + + +-------+------+ !03/05/2017 10:59 AM !Lasix !20 mg !I.V. ! + + +-------+------+ !03/05/2017 11:47 AM !Bumex !2 mg !I.V. ! + + +-------+------+ Devices Used - A6 Fr. BS JL 4 Diag. Catheterwas used for:Left coronary angiography. - A6 Fr. BS JR 4 Diag. Catheterwas used for:Right coronary angiography. - A6 Fr. BS Angled Pigtail Diag. Catheterwas used for:LV Pressures. Contrast Material - Isovue 74886 ml Fluoroscopy Time: Diagnostic: 4:18 minutes. Total: 4:18 minutes. Fluoroscopy Dose: Diagnostic: 954 mGy. Total: 954 mGy. Estimated Blood Loss: 5 ml. IABP: IABP was Inserted during procedure and prior to PCI. Additional [facility] PCI Information PCI Indication:PCI for high risk Non-STEMI or unstable angina. Medical History Allergies - Other:(Codeine). - Codiene. - Morphine. Risk Factors The patient risk factors include:prior PCI on 09/26/2011;treated hypertension, family history of premature CAD, diabetes mellitus, last creatinine: 0.8 mg/dl, creatinine clearance: 45.74 ml/min, dyslipidemia, Current/Recent(w/in 1 year) tobacco use and prior [place] . Admission Data Admission Date: 03/05/2017 Admission Time: 10:51 AM Admit Source: Emergency department Admission Medications + +------+------+ + + + + !Medication !Dosage!Times !Last !Last !Administered !Comments ! ! ! !Per !Delivery !Delivery ! ! ! ! ! !Day !Date !Time ! ! ! + +------+------+ + + + + !CHOCO ! ! ! ! !Yes ! ! !Inhibitor ! ! ! ! ! ! ! !(any) ! ! ! ! ! ! ! + +------+------+ + + + + !Aspirin ! ! ! ! !Yes ! ! !(any) ! ! ! ! ! ! ! + +------+------+ + + + + !Beta [place]! ! ! ! !Yes ! ! !(any) ! ! ! ! ! ! ! + +------+------+ + + + + !Statin (any)! ! ! ! !Yes ! ! + +------+------+ + + + + Clinical Evaluation Leading to Procedure Diagnosed on 03/05/2017 12:00 AM. - The patient's CAD presentation was assessed as: Non-STEMI.The symptom onset was first noted on 03/05/2017 07:00 AM(time was estimated). - The patient's anginal syndrome during the past two weeks was assessed as: Class IV according to the [place] Cardiovascular Society Classification System (CCS). Anti-anginal medications were prescribed during the past two weeks. The medication is: Beta Blockers. - The patient has been in a state of heart failure within the past two weeks. - The patient's heart failure status was assessed as NYHA Class IV. Hemodynamics Condition: Rest O2 Consumption: Estimated: 279.07Heart Rate: 102 bpm Pressures (mmHg) +-----+ + !Site !Pressure ! +-----+ + !LV !109/20 ,34 ! +-----+ + !LV !111/20 ,34 ! +-----+ + !AO !112/73 (91) ! +-----+ + !LV !111/18 ,33 ! +-----+ + Valve Gradients and Areas + +---------+---------+---------+ +---------+ + !Valve !Peak !Mean !Area !Index !Flow !Source ! + +---------+---------+---------+ +---------+ + !Aortic !0 !0 ! ! ! ! ! + +---------+---------+---------+ +---------+ + !Aortic !0 !0 ! ! ! ! ! + +---------+---------+---------+ +---------+ + Shunts Oxygen Values O2 Capacity 163.2 O2 Consumption 279.07 Signatures dtt: Obdulio Kimbrough (cardio) dtd: 03/05/17 1105 Physician Self Edit
--- NOTE | ~2017-03-05 | HP ---
PATIENT'S NAME: LONDON MOELLER [facility] AGE: 47 Y [address] ROOM: [place] [address] LOCATION: [facility] ADMIT DATE: 03/05/2017 History & Physical DISCHARGE DATE: FAMILY PHYSICIAN: GENA SCANLON MD ATTENDING PHYSICIAN: SHMUEL DOWNEY DATE OF SERVICE: CHIEF COMPLAINT: NSTEMI, nausea, vomiting. HISTORY OF PRESENT ILLNESS: This is a 47-year-old female with known history of coronary artery disease, status post multiple stents in the past, has a history of tobacco dependency, hypertension, hyperlipidemia, type 2 diabetes, presents with an acute onset of nausea, vomiting, and chest tightness, and is admitted for NSTEMI. The patient reports that she woke up around 2 o'clock in the morning with a sudden onset of nausea, vomiting, and chest tightness with associated diaphoresis and continued to feel sick throughout the night and subsequently her family member decided to call the squad and brought her to the emergency room. The patient continued to have these symptoms during emergency room evaluation and was noted to have significant abnormalities including a troponin of 1.5 and significant hypoxia and shortness of breath and subsequently admitted for NSTEMI. The patient just had a cardiac cath done and was found to have 3- vessel disease and an intra-aortic balloon pump was placed by Dr. Kimbrough and plan is to continue medical treatment and have a CT surgery evaluation for early CABG early next week. PAST MEDICAL HISTORY: 1. Coronary artery disease. 2. Type 2 diabetes. 3. Hypertension. 4. Hyperlipidemia. 5. Tobacco dependence. FAMILY HISTORY: The patient has significant coronary artery disease in her parents. SOCIAL HISTORY: Patient is an active smoker. However, denies any alcohol or drug use. REVIEW OF SYSTEMS: All systems have been reviewed and are all negative except as described in the HPI. PATIENT'S NAME: SUNNI [facility] AGE: 47 Y [address] ROOM: [place] [address] LOCATION: [facility] ADMIT DATE: 03/05/2017 History & Physical DISCHARGE DATE: FAMILY PHYSICIAN: GENA SCANLON MD ATTENDING PHYSICIAN: SHMUEL DOWNEY PHYSICAL EXAMINATION: VITAL SIGNS: Afebrile, blood pressure 132/70, respiratory rate 18, pulse 87, saturating 93% on 4 liters of oxygen. GENERAL: The patient is lethargic, however, awake, alert, and oriented x3. No acute distress. HEENT: Moist mucous membranes. No scleral icterus. Conjunctival pallor noted. SKIN: Without rash or lesion. HEART: S1, S2. Regular rate and rhythm. CHEST: Basilar crackles and diminished breath sounds diffusely. ABDOMEN: Soft, nontender, nondistended. Positive bowel sounds. MUSCULOSKELETAL: No joint swelling, redness, or effusion noted. NEUROLOGICAL: Grossly nonfocal. LABORATORY DATA: Significant labs, troponin 1.5. ASSESSMENT AND PLAN: 1. Ibf-VK-bpkirgb elevation myocardial infarction, status post cardiac cath. The patient was found to have 3-vessel disease. We will continue medical management and she is to be evaluated for coronary artery bypass grafting. Dr. Kimbrough is managing closely. 2. Acute respiratory failure with hypoxia. This is related to acute congestive heart failure in the setting of esr-SG-kjzpiol elevation myocardial infarction. She has an intra-aortic balloon pump in place. We will continue support this way and Dr. Kimbrough will be closely following as well. 3. Acute congestive heart failure in relation to problem #1. Manage as above. 4. Coronary artery disease, status post multiple stents. Management as above. 5. Type 2 diabetes. The patient on metformin at home. We will hold this and continue sliding scale insulin. 6. Pulmonary edema. This is related to acute myocardial infarction. We will continue to gently diurese with 20 mg of IV Lasix b.i.d. and continue to monitor urine output. 7. Hyperlipidemia. Continue high-dose statin therapy with 80 mg p.o. daily. 8. Tobacco dependence. Discussed of the need to cease tobacco use and the patient understands and is willing to try to quit from hereon. 9. Deep vein thrombosis prophylaxis. The patient is on a heparin drip per ACS protocol. PATIENT'S NAME: LONDON MOELLER [facility] AGE: 47 Y [address] ROOM: [address] [address] LOCATION: [facility] ADMIT DATE: 03/05/2017 History & Physical DISCHARGE DATE: FAMILY PHYSICIAN: GENA SCANLON MD ATTENDING PHYSICIAN: SHMUEL DOWNEY MD BG/modl /[id number] D: [id number] T: [id number] HISTORY & PHYSICAL
--- NOTE | ~2017-03-05 | PUL ---
PATIENT'S NAME: LONDON MOELLER [facility] AGE: 47 Y [address] ROOM: [address] [address] [facility] ADMIT DATE: 03/05/2017 Pulmonary DISCHARGE DATE: FAMILY PHYSICIAN: GENA SCANLON MD ATTENDING PHYSICIAN: SHMUEL DOWNEY NAME OF PROCEDURE: Bedside Spirometry DATE OF PROCEDURE: March 21, 2017 TECH: STEVE Harris REASON FOR EXAM: Shortness of breath RESULTS: FVC was 1.9 liters which is 54% of predicted and low, FEV1 was 1.31 liters which is 47% of predicted and low, and FEV1/FVC was 68.8% and low. The flow volume curve revealed significant airflow limitation. After bronchodilator administration FVC increased to 2.06 liters which is an 8% increase and FEV1 increased to 1.57 liters which is a 20% increase. FEV1/FVC was 76.4%. PHYSICIAN INTERPRETATION: The patient has evidence of severe airflow limitation with a significant bronchodilator response. MD RUBI JAMES/rigo /[id number] dtt: 03/23/17 1020 , YOSSI GIBSON dtd: 03/22/17 1513
[2017-03-05 08:33] LABS: BICARBONATE 25.4 mmol/L (18.0-23.0); LACTATE 1.3 mEq/L (0.50-1.60); PCO2 41 mmHg (35-45); PO2 55 mmHg (80-90)
[2017-03-05 08:34] LABS: BASOPHIL # 0.1 K/uL (0.0-0.2); BASOPHIL % 0.6 %; EOSINOPHIL % 0.1 %; HEMATOCRIT 34.7 % (33.0-46.0); IMMATURE GRANULOCYTE # 0.1 K/uL (0.0-0.3); IMMATURE GRANULOCYTE % 0.4 %; LYMPHOCYTE # 1.4 K/uL (0.8-4.0); LYMPHOCYTE % 10.2 %; MCH 33.5 pg (27.0-34.0); MCHC 34.6 gm/dL (32.0-36.5); MCV 96.9 fl (83.0-98.0); MONOCYTE # 0.7 K/uL (0.0-1.0); MONOCYTE % 4.7 %; MPV 9.7 fl (9.4-12.4); NEUTROPHIL # (ANC) 11.6 K/uL (1.8-7.8); NRBC % 0 /100WBC (0-0.00); PLATELET COUNT 271 K/uL (150-450); RBC 3.58 M/uL (3.50-5.50); RDW-CV 14.2 % (11.9-14.6); WBC 13.8 K/uL (4.0-11.0)
[2017-03-05 08:42] LABS: INR - (THERAPEUTIC) 0.98 (0.92-1.07); PROTIME 10.3 SECONDS (9.8-11.4); PTT 27 SECONDS (25-32)
[2017-03-05 08:54] LABS: ALBUMIN 3.2 gm/dL (3.5-5.0); ALK PHOS 88 IU/L (33-138); ALT 52 IU/L (12-78); ANION GAP 14.3 (10.0-19.0); AST 33 IU/L (10-40); BLOOD UREA NITROGEN 11 mg/dL (6-24); CALCIUM 8.4 mg/dL (8.5-10.5); CHLORIDE 106 mMol/L (96-110); CO2 24 mMol/L (22-32); CPK 284 IU/L (21-215); CREATININE 0.8 mg/dL (0.5-1.1); ESTIMATED GFR (MDRD EQUATION) > 60; MAGNESIUM 1.7 mg/dL (1.8-2.6); POTASSIUM 4.3 mMol/L (3.7-5.1); SODIUM 140 mMol/L (135-145); TOTAL BILIRUBIN 0.4 mg/dL (0.0-1.5)
[2017-03-05 11:25] LABS: BASOPHIL # 0.1 K/uL (0.0-0.2); BASOPHIL % 0.5 %; EOSINOPHIL % 0.1 %; HEMATOCRIT 33.6 % (33.0-46.0); HEMOGLOBIN 11.4 g/dL (10.0-15.0); IMMATURE GRANULOCYTE # 0.1 K/uL (0.0-0.3); IMMATURE GRANULOCYTE % 0.4 %; LYMPHOCYTE # 1.9 K/uL (0.8-4.0); LYMPHOCYTE % 13.9 %; MCH 32.7 pg (27.0-34.0); MCHC 33.9 gm/dL (32.0-36.5); MCV 96.3 fl (83.0-98.0); MONOCYTE # 0.7 K/uL (0.0-1.0); MPV 9.7 fl (9.4-12.4); NEUTROPHIL # (ANC) 10.8 K/uL (1.8-7.8); NEUTROPHIL % 80.1 %; NRBC % 0 /100WBC (0-0.00); PLATELET COUNT 263 K/uL (150-450); RBC 3.49 M/uL (3.50-5.50); RDW-CV 14.4 % (11.9-14.6); WBC 13.5 K/uL (4.0-11.0)
[2017-03-05 11:52] LABS: ALBUMIN 3.1 gm/dL (3.5-5.0); ALK PHOS 83 IU/L (33-138); ALT 50 IU/L (12-78); ANION GAP 13.9 (10.0-19.0); AST 43 IU/L (10-40); BLOOD UREA NITROGEN 11 mg/dL (6-24); CALCIUM 8.2 mg/dL (8.5-10.5); CHLORIDE 108 mMol/L (96-110); CO2 22 mMol/L (22-32); CREATININE 0.8 mg/dL (0.5-1.1); ESTIMATED GFR (MDRD EQUATION) > 60; POTASSIUM 3.9 mMol/L (3.7-5.1); SODIUM 140 mMol/L (135-145); TOTAL PROTEIN 6.7 g/dL (6.0-8.4)
[2017-03-05 11:54] LABS: TOTAL BILIRUBIN 0.3 mg/dL (0.0-1.5)
[2017-03-05] MEDS ORDERED: GLUCOPHAGE1000 MG PO (14:10)
[2017-03-05] MEDS ORDERED: PERCOCET 10-321 EACH PO (14:13)
[2017-03-05] MEDS ORDERED: ZIAC 10 MG10 MG PO (14:13)
[2017-03-05] MEDS ORDERED: TORADOL10 MG PO (14:14)
[2017-03-05] MEDS ORDERED: MEDROL4 M1 PO (14:16)
--- NOTE | 2017-03-05 17:38 | NUR ---
PT A/OX3, DENIES ANY N/T, WITHOUT ANY FOCAL DEFICITS. VSS, SR WITH HR 80'S, IABP 1:1 WITH FULL AUG AND EKG TRIGGER WITH ALARM SET AT 80 AND GOAL TO KEEP ABOVE 100. CURRENTLY NOT ON ANY MEDS FOR BP, PULSES DOPPLED DISTALLY AND EXT COOL TO TOUCH BUT CAP REFILL <3 SEC. AFEBRILE, LS C/D, NON-PROD COUGH, ON 5LNC CURRENTLY WITH SATS LOW 90'S; SIGNIFICANT SMOKING HX OF 35PPD. LORENZO WITH PALE YELLOW LG UOP WITH BUMEX AND LASIX GIVEN IN [place] AND ADDT'L 20 ON ICU WITH ADEQ RESPONSE. NO BM, NO FLATUS, OK WITH CARDIAC DIET AND LIGHT INTAKE THIS EVENING. R) PIV X1 WITH HEPARIN GTT PER [facility] PROTOCOL WITH LAST PTT =31 AND NOW AT 1200U/HR AND 3000UNIT BOLUS AROUND 1530.
[2017-03-06 02:06] LABS: MAGNESIUM 1.9 mg/dL (1.8-2.6); POTASSIUM 3.2 mMol/L (3.7-5.1)
[2017-03-06 04:24] LABS: BASOPHIL # 0.1 K/uL (0.0-0.2); BASOPHIL % 0.6 %; EOSINOPHIL # 0.1 K/uL (0.0-0.5); EOSINOPHIL % 1.2 %; HEMATOCRIT 33.8 % (33.0-46.0); HEMOGLOBIN 11.1 g/dL (10.0-15.0); IMMATURE GRANULOCYTE % 0.3 %; LYMPHOCYTE # 3.4 K/uL (0.8-4.0); LYMPHOCYTE % 29.3 %; MCH 32.7 pg (27.0-34.0); MCHC 32.8 gm/dL (32.0-36.5); MCV 99.7 fl (83.0-98.0); MONOCYTE # 0.8 K/uL (0.0-1.0); MPV 10.1 fl (9.4-12.4); NEUTROPHIL # (ANC) 7.1 K/uL (1.8-7.8); NEUTROPHIL % 61.6 %; NRBC % 0 /100WBC (0-0.00); PLATELET COUNT 223 K/uL (150-450); RBC 3.39 M/uL (3.50-5.50); RDW-CV 14.7 % (11.9-14.6); WBC 11.5 K/uL (4.0-11.0)
[2017-03-06 04:58] LABS: CALCIUM 8.4 mg/dL (8.5-10.5)
[2017-03-06 04:59] LABS: CHLORIDE 106 mMol/L (96-110); POTASSIUM 3.6 mMol/L (3.7-5.1); SODIUM 140 mMol/L (135-145)
[2017-03-06 05:00] LABS: ANION GAP 10.6 (10.0-19.0); BLOOD UREA NITROGEN 12 mg/dL (6-24); CO2 27 mMol/L (22-32); CREATININE 0.6 mg/dL (0.5-1.1); ESTIMATED GFR (MDRD EQUATION) > 60; MAGNESIUM 2.1 mg/dL (1.8-2.6)
--- NOTE | 2017-03-06 05:11 | NUR ---
Significant Event: A/O. DID NOT SLEEP WELL OVERNIGHT. CONTINUES ON IABP. LOST PULSES IN R) FOOT, WAS COOL, PALE, INCREASED PAIN. NOTIFIED DR. CANALES. GAVE NORCO 1 TAB X3. MORPHINE 1MG X6. AUGMENTED PRESSURES LOW. STARTED DOBUTAMINE AT 3MCG/KG/MIN. HAD BIGEMINY, TRIGEMINY, INCREASED PVC'S. K WAS 3.2. GAVE 30MEQ PO, 40MEQ IV. SOB WITH ACTIVITY. INCREASED O2 TO 6L, DESATS WITH MINIMAL ACTIVITY. LUNG SOUNDS CLEAR/DIM, DIM IN BASES. LOOSE NON-PRODUCTIVE COUGH. HYPOACTIVE BOWEL SOUNDS. POOR PO INTAKE. NO BM. 895ML UOP. HAD LASIX DRIP ON FOR A SHORT PERIOD, D/C'D WHEN BP DECREASED. REPOSITIONED PER PATIENT REQUEST FOR COMFORT. REFUSED BATH. ENZYMES ELEVATED, TRENDING DOWN TOWARD AM. Follow up: CONTINUE TO MONITOR.
--- NOTE | 2017-03-06 17:31 | NUR ---
PT A/OX3, N/T TO RLE, CSM BETTER THIS AFTERNOON. IABP DC'D AT 0930 AND FEMSTOP OFF AT 1045 WITH OKAY TO GET UP OOB BY 1630. RLE DUPLEX SCANNING NEGATIVE, WARM PRESS PLACED TO RLE AND PT FEELING MUCH BETTER. MS 2MG IVP Q2H GIVEN X5 AND NORCO 1 TAB Q4H GIVEN X3 WITH RELIEF[address] ST HR 100'S, SBP 90-110'S, PULSES DOPPLED DISTALLY AND FAINT TO R)PT AND FOUND BY NI TECH TO DP; POPLITEAL EASILY DOPPLED. RLE DISCOLORED AND COOL TO TOUCH, BUT MUCH IMPROVED T/O SHIFT. 6LNC WITH SATS MID 90'S, LS C/D, CONT ON BID LASIX WITH AM DOSE HELD D/T LOW BP. DOBUT GTT CONT AT 3 TO STAY. LORENZO DC'D WITH POST VOID. PT -800 FOR SHIFT, NO BM, NO FLATUS, NO N/V/D, BUT ADEQUATE INTAKE. PIV X2 WITH HEPARIN DC'D AND SQ HEPARIN STARTED PER DVT PROPHYLAXIS. PLAN FOR CABG ON TUESDAY. ECHO DONE TODAY.
[2017-03-07 03:55] LABS: BASOPHIL # 0.1 K/uL (0.0-0.2); BASOPHIL % 0.6 %; EOSINOPHIL # 0.1 K/uL (0.0-0.5); EOSINOPHIL % 0.9 %; HEMATOCRIT 32.7 % (33.0-46.0); HEMOGLOBIN 11.1 g/dL (10.0-15.0); IMMATURE GRANULOCYTE # 0.1 K/uL (0.0-0.3); IMMATURE GRANULOCYTE % 0.4 %; LYMPHOCYTE # 2.1 K/uL (0.8-4.0); LYMPHOCYTE % 14.8 %; MCH 33.4 pg (27.0-34.0); MCHC 33.9 gm/dL (32.0-36.5); MCV 98.5 fl (83.0-98.0); MONOCYTE % 7.3 %; MPV 9.6 fl (9.4-12.4); NEUTROPHIL # (ANC) 10.6 K/uL (1.8-7.8); NRBC % 0 /100WBC (0-0.00); PLATELET COUNT 254 K/uL (150-450); RBC 3.32 M/uL (3.50-5.50); RDW-CV 14.6 % (11.9-14.6)
[2017-03-07 04:12] LABS: ALBUMIN 3.1 gm/dL (3.5-5.0); BLOOD UREA NITROGEN 9 mg/dL (6-24); CALCIUM 8.4 mg/dL (8.5-10.5); CHLORIDE 102 mMol/L (96-110); CO2 26 mMol/L (22-32); CREATININE 0.6 mg/dL (0.5-1.1); ESTIMATED GFR (MDRD EQUATION) > 60; PHOSPHORUS 3.2 mg/dL (2.5-4.9); SODIUM 134 mMol/L (135-145)
--- NOTE | 2017-03-07 05:10 | NUR ---
Significant Event: A/O. HAS SLEPT A FEW HOURS OVERNIGHT. WOKE SLIGHTLY FORGETFUL X1, BUT ORIENTED HERSELF. HR 80-90'S. NO ECTOPY NOTED. NO C/O CHEST PAIN. DOBUTAMINE WEANED OFF. SBP 90-150'S. ARTERIAL DUPLEX OF R) LEG COMPLETE, MINIMAL FLOW TO R) LOWER LEG BELOW KNEE. NOT ABLE TO DOPPLE PULSES ON R) LEG, NO CHANGED OVERNIGHT. 6L O2. ETCO2 35-45. NPO SINCE [place]. NO BM. ADEQUATE UOP, VOIDS PER COMMODE. UP WITH 1PA. CHANGED TO DILAUDID ASSEMBLER EQUIPMENT, 0.2MG, MAX OF 1.5MG/HR, LOCKOUT CHANGED TO Q8MIN TO ACCOMODATE THIS. BETTER PAIN CONTROL WITH ASSEMBLER EQUIPMENT. Follow up: POSSIBLY TO OR/DIRECTOR OF CLINICAL TRIALS FOR R) LEG
[2017-03-07 14:49] LABS: BICARBONATE 27.1 mmol/L (18.0-23.0); PCO2 48 mmHg (35-45); PO2 72 mmHg (80-90)
[2017-03-07 15:09] LABS: HEMATOCRIT 29.2 % (33.0-46.0); HEMOGLOBIN 9.8 g/dL (10.0-15.0)
--- NOTE | 2017-03-07 15:30 | NUR ---
Introduced self and role of care management to patient's and a daughter. Patient lives in [place] with spouse. To early to know what her discharge needs will be. Will follow.
[2017-03-07 17:51] LABS: ANION GAP 11.9 (10.0-19.0); BLOOD UREA NITROGEN 9 mg/dL (6-24); CALCIUM 7.9 mg/dL (8.5-10.5); CHLORIDE 103 mMol/L (96-110); CO2 26 mMol/L (22-32); CREATININE 0.7 mg/dL (0.5-1.1); ESTIMATED GFR (MDRD EQUATION) > 60; POTASSIUM 3.9 mMol/L (3.7-5.1); SODIUM 137 mMol/L (135-145)
--- NOTE | 2017-03-07 19:57 | NUR ---
Significant Event: Patient is sedated on Versed. Follows commands, withdraws in extremities X4, opens eyes to command and spontaneously. Pupils are equal and reactive. Right foot posterior tibia and dorsalis pedis no pulses, able to dopple right popliteal. Patient had a right popliteal embolectomy. SBP have been mid 80's-160's, MAP's 50'-s90's. Patient has been SR to ST 80's low 100's. Patient is in AC rate of 18, TV 450, PEEP of 8, FiO2 of 50%. EtCo2 have been upper 30's. Lung sounds are clear and diminished. Patient had 525ml out in urine before surgery. Follow up:
[2017-03-08 00:26] LABS: BASOPHIL # 0.1 K/uL (0.0-0.2); BASOPHIL % 0.4 %; EOSINOPHIL % 0.1 %; HEMATOCRIT 26.1 % (33.0-46.0); HEMOGLOBIN 8.6 g/dL (10.0-15.0); IMMATURE GRANULOCYTE # 0.1 K/uL (0.0-0.3); IMMATURE GRANULOCYTE % 0.6 %; LYMPHOCYTE # 1.4 K/uL (0.8-4.0); LYMPHOCYTE % 8.6 %; MCH 33.2 pg (27.0-34.0); MCV 100.8 fl (83.0-98.0); MONOCYTE # 1.8 K/uL (0.0-1.0); MONOCYTE % 10.9 %; MPV 9.7 fl (9.4-12.4); NEUTROPHIL # (ANC) 12.8 K/uL (1.8-7.8); NEUTROPHIL % 79.4 %; NRBC % 0 /100WBC (0-0.00); PLATELET COUNT 210 K/uL (150-450); RBC 2.59 M/uL (3.50-5.50); RDW-CV 14.9 % (11.9-14.6); WBC 16.1 K/uL (4.0-11.0)
[2017-03-08 04:32] LABS: BICARBONATE 25.7 mmol/L (18.0-23.0); PO2 80 mmHg (80-90)
[2017-03-08 04:34] LABS: PCO2 37 mmHg (35-45)
[2017-03-08 04:50] LABS: ALBUMIN 2.8 gm/dL (3.5-5.0); ANION GAP 13.6 (10.0-19.0); BLOOD UREA NITROGEN 10 mg/dL (6-24); CHLORIDE 105 mMol/L (96-110); CO2 24 mMol/L (22-32); CREATININE 0.6 mg/dL (0.5-1.1); ESTIMATED GFR (MDRD EQUATION) > 60; MAGNESIUM 2.1 mg/dL (1.8-2.6); POTASSIUM 3.6 mMol/L (3.7-5.1); SODIUM 139 mMol/L (135-145)
[2017-03-08 04:52] LABS: CALCIUM 7.3 mg/dL (8.5-10.5); PHOSPHORUS 1.8 mg/dL (2.5-4.9)
--- NOTE | 2017-03-08 05:04 | NUR ---
Patient currently on the ventilator. Patient was in surgery from 20:00 to 02:00 this shift. FiO2 weaned down to 40%. O2 sats 94-100% this shift. ETCO2 was 32-39. Breathsounds slightly coarse throughout bilaterally, suctioning small to moderate amounts of thick queen secretions. Will continue to monitor patient.
[2017-03-08 05:21] LABS: HEMATOCRIT 29.1 % (33.0-46.0); HEMOGLOBIN 9.7 g/dL (10.0-15.0); MCH 32.6 pg (27.0-34.0); MCHC 33.3 gm/dL (32.0-36.5); MCV 97.7 fl (83.0-98.0); MPV 10.3 fl (9.4-12.4); PLATELET COUNT 225 K/uL (150-450); RBC 2.98 M/uL (3.50-5.50); RDW-CV 16.6 % (11.9-14.6); WBC 15.5 K/uL (4.0-11.0)
[2017-03-08 05:46] LABS: ABSOLUTE NEUTROPHIL CT (ANC) 12.6 K/uL (1.8-7.8); BANDED NEUTROPHIL # 2.5 K/uL (0.0-0.1); BANDED NEUTROPHILS % 16 %; LYMPHOCYTE % 13 %; MONOCYTE # 0.9 K/uL (0.0-1.0); SEGMENTED NEUTROPHIL # 10.1 K/uL (1.8-7.8); SEGMENTED NEUTROPHIL % 65 %
--- NOTE | 2017-03-08 07:35 | NUR ---
Significant Event: HAD CT ANGIO WITH RUNOFF, FOUND NO FLOW BELOW POPLITEAL. DR. ROGERS UP TO SEE PATIENT. PATIENT SENT TO OR AT 2018 FOR EMOLECTOMY. RETURNED FROM OR AT 0206. HAD A FEM-POP BYPASS. ABLE TO DOPPLE A FAINT WHOOSHING PULSE ON R) POST TIB, MORE PULSTATILE TOWARD AM. ARGATROBAN ON AT 5MCG/KG/MIN. PTT'S 81-82. HR 100'S. SBP 100-130'S. WENT TO OR WITH TEMP OF 102.5, TEMPS AFTER OR 99-98'S. CONTINUES ON VENT. A/C, WEANED TO 40% FIO2, PEEP 8. LUNG SOUNDS CLEAR/DIM, DIM IN BASES. WHITE SPUTUM. OG TO LIS. NO BM. ADEQUATE UOP, URINE DARKER IN COLOR TOWARD AM. VERSED AT 7MG/HR. PATIENT AGGITATED AT TIMES. GAVE PRN VERSED 2MG, FENTANYL 50MCG X1 WHEN PATIENT ATTEMPTING TO SIT UP, PULLING AT ETT. TYLENOL GIVEN X1 AT BEGINNING OF SHIFT. DILAUDID PLATE CLEANER CONTINUES WITH 0.2MG WITH 8 MINUTE LOCKOUT. DOSE GIVEN WITH TURNS OR STIMULI. PATIENT FOLLOWS COMMANDS AT TIMES AND DOES NOT HEAD YES WHEN ASKED IF HAVING PAIN. Follow up: MONITOR PULSES. WEAN SEDATION, POSSIBLY EXTUBATE.
--- NOTE | 2017-03-08 09:00 | NUR ---
Diabetes consult: Received a referral on this patient due to her A1C of 9.2%. Patient was taken to OR. Will continue to follow and assess educational needs when appropriate.
--- NOTE | 2017-03-08 17:21 | NUR ---
D: RESP DISTRESS I: VENT, DUONEB R: PT REMAINED ON 40% FIO2 T/O DAY, BS SL COARSE T/O, SXNED OUT SMALL TO MOD THICK YELLOW SECRETIONS, WEANED PEEP TO 5, PT WENT TO SURGERY AROUND 12:58 TO TAKE CARE OF HER COMPARTMENT SYNDROME IN HER LEGS, SHE CAME BACK TO ICU AROUND 13:45, NO OTHER SIGNIFICANT CHANGES T/O DAY P: CONT.
--- NOTE | 2017-03-08 17:58 | NUR ---
Significant Event: PATIENT SEDATED ON 4MG/HR VERSED ON THE VENT. PATIENT HAS SLIGHT SPONTANEOUS MOVEMENT OF ALL EXTREMETIES, OPENS EYES TO STIMULI. ST WITH HRS 100S-120S. MAX TEMP 102.2 NO PULSES IN RIGHT DORSALIS PEDIS, ABLE TO DOPPLE POSTERIOR TIBIA. +1 EDEMA IN RIGHT LEG, PATIENT TO OR AT 1258 DUE TO COMPARTMENT SYNDROME, A RIGHT 4 COMPARTMENT FASCIOTOMY PERFORMED; PATIENT RETURNED WITH KERLIX DRESSING. PATIENT IN AC MODE RATE OF 18, PEEP 5, FI02 40%, ETCO2 HAVE BEEN 30'S. LUNGS SOUNDS HAVE BEEN SLIGHTLY COURSE/WHEEZY AT TIMES TO CLEAR AND DIM. BOWEL SOUNDS HAVE BEEN HYPO ACTIVE TO RARE, NO BM SINCE 03/04. LORENZO HAD 1725ML OUT. PRN NORCO 2TABS X3. PRN TYLENOL X1. PRN IVP FENTANYL 50MCG GIVEN X1. Follow up:CONTINUE TO MONITOR
[2017-03-08 18:02] LABS: ALBUMIN 2.3 gm/dL (3.5-5.0); ALK PHOS 55 IU/L (33-138); ALT 71 IU/L (12-78); AST 304 IU/L (10-40); TOTAL PROTEIN 5.6 g/dL (6.0-8.4)
[2017-03-08 18:09] LABS: TOTAL BILIRUBIN 0.7 mg/dL (0.0-1.5)
[2017-03-08 19:17] LABS: CPK > 20000 IU/L (21-215)
--- NOTE | 2017-03-09 05:20 | NUR ---
SIGNIFICANT EVENT: PATIENT WAS BECOMING AGITATED AND BITING DOWN ON THE VENT TUBE. VERSED AND FENTYNAL GIVEN TO CALM AND SEDATE THE PATIENT. BPS IN THE 100-130S, PULSES 110-120S. RLE POST TIB AUDIBLE ON DOPLAR, UNABLE TO FIND PEDAL PULSE. FOLLOW UP:
[2017-03-09 06:15] LABS: ALBUMIN 2.2 gm/dL (3.5-5.0); ANION GAP 9.4 (10.0-19.0); BLOOD UREA NITROGEN 8 mg/dL (6-24); CHLORIDE 110 mMol/L (96-110); CO2 25 mMol/L (22-32); CREATININE 0.7 mg/dL (0.5-1.1); ESTIMATED GFR (MDRD EQUATION) > 60; MAGNESIUM 2.5 mg/dL (1.8-2.6); POTASSIUM 3.4 mMol/L (3.7-5.1); SODIUM 141 mMol/L (135-145)
[2017-03-09 06:40] LABS: CALCIUM 7.3 mg/dL (8.5-10.5); PHOSPHORUS 1.8 mg/dL (2.5-4.9)
[2017-03-09 07:32] LABS: BASOPHIL % 0.3 %; EOSINOPHIL % 0.1 %; HEMATOCRIT 25.6 % (33.0-46.0); HEMOGLOBIN 8.4 g/dL (10.0-15.0); IMMATURE GRANULOCYTE # 0.1 K/uL (0.0-0.3); IMMATURE GRANULOCYTE % 0.4 %; LYMPHOCYTE % 6.1 %; MCH 32.7 pg (27.0-34.0); MCHC 32.8 gm/dL (32.0-36.5); MCV 99.6 fl (83.0-98.0); MONOCYTE # 2.1 K/uL (0.0-1.0); MONOCYTE % 13.3 %; MPV 10.3 fl (9.4-12.4); NEUTROPHIL # (ANC) 12.5 K/uL (1.8-7.8); NEUTROPHIL % 79.8 %; NRBC % 0 /100WBC (0-0.00); PLATELET COUNT 231 K/uL (150-450); RBC 2.57 M/uL (3.50-5.50); WBC 15.7 K/uL (4.0-11.0)
[2017-03-09 07:41] LABS: BILIRUBIN URINE NEGATIVE (NEGATIVE); BLOOD URINE 250 /UL (NEGATIVE); COLOR URINE RED (YELLOW); GLUCOSE URINE 100 mg/dL (NEGATIVE); KETONE URINE 15 mg/dL (NEGATIVE); LEUKOCYTES URINE 100 /UL (NEGATIVE); NITRITE URINE NEGATIVE (NEGATIVE); PH URINE 6.5 (4.0-8.0); PROTEIN URINE 100 mg/dL (NEGATIVE); TURBIDITY URINE 3+ (CLEAR); UROBILINOGEN URINE 1 mg/dL (NORMAL)
[2017-03-09 07:47] LABS: BACTERIA URINE NEGATIVE (NEGATIVE); EPITHELIAL URINE NEGATIVE #/HPF (NEGATIVE); RBC URINE FULL FIELD #/HPF (NEGATIVE)
[2017-03-09 09:39] LABS: BICARBONATE 26.8 mmol/L (18.0-23.0); PCO2 36 mmHg (35-45); PO2 68 mmHg (80-90)
--- NOTE | 2017-03-09 17:08 | NUR ---
PT VENTED ON 40% SATS 96-98%, BREATH SOUNDS SLIGHTLY COARSE THROUGHOUT BUT CLEAR SOME WITH SXN, SXN A SMALL AMOUNT OF WHITE SPUTUM, ETCO2 34-38 MOST OF THE DAY, PT TRIED IN CPAP 2 TIMES THROUGHOUT THE DAY, RR INCREASED 34-38 AND VT 180-250, WILL CONTINUE TO TRY AND WEAN PT, PT CONTINUES TO BE SLEEPY AND NOT FOLLOWING COMMANDS
--- NOTE | 2017-03-09 19:10 | NUR ---
Significant Event: PATIENT OFF SEDATTION AT 0750, PATIENT WAS DROWSY FOR MOST OF THE MORNING INCREASINGLY MORE AWAKE. OPEN EYES TO SOUND, DOES NOT FOLLOW COMMANDS. SPONTANEOUSLY MOVES ALL EXTREMETIES. ST WITH HRS 100S-120S. BP LOW GAVE 500ML OF 5% ALBUMIN, NS BOLUS. TEMP 103.1, TYLENOL GIVEN, FAN, ICE. NO PULSES IN RIGHT DORSALIS PEDIS, ABLE TO DOPPLE RIGHT POST TIB. +1 EDEMA IN RIGHT LEG. PATIENT HAD FASCIOTOMY 03/08, WOUND VAC PLACED TODAY 03/09. PATIENT IN AC MODE RATE OF 18, PEEP 5, FIO2 40%, BITING THE TUBE. LUNGS SOUNDS COURSE AT BEGINNING OF SHIFT, CLEAR AND DIM. BOWEL SOUNDS HYPO TO RARE, NO BM, STARTED DULCOLAX SUP STARTED. LORENZO WITH TEA URINE. REPLACE KCL. PRN NORCO 2TABS X2. PRN TYLENOL X2. Follow up: EXTUBATE TOMORROW.
--- NOTE | 2017-03-10 03:03 | NUR ---
Significant Event: Patient restless at times when awake, will bite at ventilator tubing at times. Responds to voice, unable to follow commands at this time. Patient is now nodding yes/no. Gave Fentanyl x 1, [place] 2 tabs x 2 for breakthrough pain; relief noted. Doppler'd lower extremity pulses. Restraints intact to bilateral wrists. Febrile throughout shift, decreased temperature in room and fan present. Argatroban continued at same rate, NaCl infusing to R) IJ. Goal rate of tube feeding 40mL/hr if tolerates well. Villanueva intact draining tea colored urine, adequate output this shift. Follow up: Turn Q2Hrs, PTT-HP this AM. Monitor temps, breakthrough pain.
[2017-03-10 04:59] LABS: PCO2 37 mmHg (35-45); PO2 60 mmHg (80-90)
--- NOTE | 2017-03-10 04:59 | NUR ---
No vent changes made this shift. EtCO2 35-40 this shift. BrSs slightly coarse, suctioned small-moderate amounts of thick, cream secretions from ETT. Pt bites down on ETT and has frequent spontaneous cough at times. Continue per plan of care, SBT today.
[2017-03-10 05:10] LABS: ALBUMIN 2.2 gm/dL (3.5-5.0); ANION GAP 9.8 (10.0-19.0); BLOOD UREA NITROGEN 11 mg/dL (6-24); CALCIUM 7.5 mg/dL (8.5-10.5); CHLORIDE 116 mMol/L (96-110); CO2 23 mMol/L (22-32); CREATININE 0.7 mg/dL (0.5-1.1); ESTIMATED GFR (MDRD EQUATION) > 60; PHOSPHORUS 1.8 mg/dL (2.5-4.9); POTASSIUM 3.8 mMol/L (3.7-5.1); SODIUM 145 mMol/L (135-145)
[2017-03-10 05:26] LABS: HEMATOCRIT 23.3 % (33.0-46.0); MCH 33.5 pg (27.0-34.0); MCHC 32.6 gm/dL (32.0-36.5); MCV 102.6 fl (83.0-98.0); MPV 10.2 fl (9.4-12.4); PLATELET COUNT 222 K/uL (150-450); RBC 2.27 M/uL (3.50-5.50); RDW-CV 16.9 % (11.9-14.6); WBC 14.4 K/uL (4.0-11.0)
[2017-03-10 05:28] LABS: HEMOGLOBIN 7.6 g/dL (10.0-15.0)
[2017-03-10 06:03] LABS: ABSOLUTE NEUTROPHIL CT (ANC) 12.5 K/uL (1.8-7.8); BANDED NEUTROPHIL # 2.7 K/uL (0.0-0.1); BANDED NEUTROPHILS % 19 %; LYMPHOCYTE # 1.3 K/uL (0.8-4.0); LYMPHOCYTE % 9 %; MONOCYTE # 0.6 K/uL (0.0-1.0); SEGMENTED NEUTROPHIL # 9.8 K/uL (1.8-7.8); SEGMENTED NEUTROPHIL % 68 %
[2017-03-10 12:36] LABS: PCO2 31 mmHg (35-45); PO2 60 mmHg (80-90)
[2017-03-10 12:38] LABS: BICARBONATE 17.1 mmol/L (18.0-23.0)
--- NOTE | 2017-03-10 17:47 | NUR ---
PT VENTED ON 70% SATS 90-92%, BREATH SOUNDS SLIGHTLY COARSE THROUHGOUT WITH WHEEZES AT TIMES, SXN A MODERATE AMOUNT OF WHITE SPUTUM, ETCO2 28-32 MOST OF THE DAY, DID INCREASE PEEP TO 8, WILL REST PATIENT OVERNIGHT AND CONTINUE TO WEAN 02 TOLERATES
--- NOTE | 2017-03-10 19:31 | NUR ---
Significant Event: PATIENT RESTLESS AND AGITATED AT START OF SHIFT, STARTED PRECEDEX, BP BECAME LABIAL, PRECEDEX D/C. PATIENT CONTINUED TO BE DROWSY UNTIL LATE AFTERNOON, INCREASINGLY MORE AWAKE, NODS HEAD APPROPRIATELY. MOVES ALL EXTREMETIES SPONTANEOUSLY. ST WITH HRS 100S-140S, HYPOTENSIVE GAVE ALBUMIN 5% 500ML X3, NS 1000ML BOLUS X3, PRBC 1 UNIT, STARTED LEVOPHED, ABLE TO WEAN LEVO OFF. TEMP 102.4. DOPPLE PULSES, STILL NO DORSALIS PEDIS PULSE FOUND. LUNG SOUNDS BECAME COURSE, BUMEX GIVEN X1, FIO2 INCREASED TO 70%. PATIENT BITES TUBE AT TIMES. BOWEL SOUNDS HYPO, 1 LARGE LOOSE BM, HELD DULCOLAX. LORENZO MARGINAL URINE, TEA COLORED. Follow up: CONTINUE.
--- NOTE | 2017-03-11 03:27 | NUR ---
SIGNIFICANT EVENT: ARGATROBAN STOPPED. PTT 50. PULSE 110-120. BP 120-140. ABLE TO FOLLOW COMMANDS IN ALL EXTREMETIES. RESTLESS DURING THE NIGHT WITH OXYGEN SATS 90-93%. FENTANYL GIVEN FOR PAIN. PATIENT IS ABLE TO NOD YES AND NO TO PAIN. ABDOMEN QUITE DISTENDED. FOLLOW UP: MONITOR PTT
[2017-03-11 04:44] LABS: PCO2 36 mmHg (35-45); PO2 66 mmHg (80-90)
--- NOTE | 2017-03-11 04:44 | NUR ---
SpO2 low 90s, borderline during the night. FiO2 increased to 100% for a short time and able to titrate down to 80%. PIPs on ventilator have mostly been in the 30s this shift. Pt continues to fight vent, gag, and bite ETT at times. She has been given fentanyl pushes to help with aggitation and pain. EtCO2 28-31 this shift. Suctioning very little of thick, cream secretions from ETT. Continue to rest on vent until able to wean FiO2 and wean ventilator.
[2017-03-11 04:45] LABS: BICARBONATE 21.8 mmol/L (18.0-23.0)
[2017-03-11 04:59] LABS: ALBUMIN 2.8 gm/dL (3.5-5.0); BLOOD UREA NITROGEN 13 mg/dL (6-24); CO2 22 mMol/L (22-32); CREATININE 0.8 mg/dL (0.5-1.1); ESTIMATED GFR (MDRD EQUATION) > 60; HEMATOCRIT 25.5 % (33.0-46.0); HEMOGLOBIN 8.3 g/dL (10.0-15.0); MCH 32.8 pg (27.0-34.0); MCHC 32.5 gm/dL (32.0-36.5); MCV 100.8 fl (83.0-98.0); MPV 10.2 fl (9.4-12.4); PLATELET COUNT 250 K/uL (150-450); POTASSIUM 3.2 mMol/L (3.7-5.1); RBC 2.53 M/uL (3.50-5.50); RDW-CV 18.7 % (11.9-14.6); WBC 12.6 K/uL (4.0-11.0)
[2017-03-11 05:00] LABS: ANION GAP 10.2 (10.0-19.0); CALCIUM 7.3 mg/dL (8.5-10.5); CHLORIDE 120 mMol/L (96-110); MAGNESIUM 2.7 mg/dL (1.8-2.6); SODIUM 149 mMol/L (135-145)
[2017-03-11 05:32] LABS: ABSOLUTE NEUTROPHIL CT (ANC) 10.7 K/uL (1.8-7.8); BANDED NEUTROPHIL # 1.8 K/uL (0.0-0.1); BANDED NEUTROPHILS % 14 %; LYMPHOCYTE % 8 %; MONOCYTE # 0.9 K/uL (0.0-1.0); SEGMENTED NEUTROPHIL % 71 %
--- NOTE | 2017-03-11 11:17 | NUR ---
A - NUTRITION FOLLOW-UP VENT. S/P FACIOTOMY 03/08 AND WOUND VAC PLACED 03/09. LABS: NA 149, K+ 3.2, GLU 324, ALB 2.8, PO4 1.0, AST 304, MG 2.7, PRE-ALB 6, A1C 9.2%. MEDS: ON VERSED AND LASIX. DIET: TF W/ JEVITY 1.5 AT 40ML/HR, TOLERATING WELL. EST NEEDS: 8099-1663 KCAL, 55-66 GRAMS PROTEIN, FLUID NEEDS: 1ML/KCAL D - INADEQUATE ORAL INTAKE RELATED TO INABILITY TO FEED ORALLY EVIDENCED BY VENT AND NEED FOR ENTERAL NUTRITION. I - CONTINUE W/ JEVITY 1.5 AT 40ML/HR. RECOMMEND ADDING FREE WATER FLUSHES 30ML/HR IF NO IV FLUID DUE TO ELEVATED Na LEVEL. M/E - GOAL: TUBE FEEDING WILL MEET 100% OF PATIENT'S NEEDS IN 3-5 DAYS.
--- NOTE | 2017-03-11 12:02 | NUR ---
Diabetes center note: 1000 Continue to trend blood sugars, at this time blood sugars are all over 300. Recommended to either change to Levemir insulin with sliding scale Novolog or increase NPH dose. Orders were noted to increase NPH insulin from 20 units to 26 units. Will need to continue to follow this patient, as patient was only on Metformin 1000 mg BID at home, prior to admission, will probably need insulin teaching.
[2017-03-11 16:12] LABS: HEMATOCRIT 30.9 % (33.0-46.0); HEMOGLOBIN 10.2 g/dL (10.0-15.0)
[2017-03-11 16:26] LABS: ANION GAP 10.3 (10.0-19.0); BLOOD UREA NITROGEN 11 mg/dL (6-24); CALCIUM 8.1 mg/dL (8.5-10.5); CHLORIDE 119 mMol/L (96-110); CO2 25 mMol/L (22-32); CREATININE 0.8 mg/dL (0.5-1.1); ESTIMATED GFR (MDRD EQUATION) > 60; POTASSIUM 3.3 mMol/L (3.7-5.1); SODIUM 151 mMol/L (135-145)
--- NOTE | 2017-03-11 16:31 | NUR ---
SIGNIFICANT EVENT: PATIENT ALERT, NODS APPROPRAITELY. DILAUDID CENTRAL SUPPLY WORKER INFUSING AT 0.2MG/HR. PATIENT NODS YES/NO APPROPRIATELY. PATIENT MOVES ALL 4 EXTREMITIES SPONTANEOUSLY AND TO COMMANDS. WEAK HAND GRASPS BILATERALLY, EQUAL STRENGTH. LIMITED ROM TO R) LOWER EXTREMITY. PATIENT HAS BEEN IN SINUS TACHY, HR 110-120S. PULSES PALPABLE IN UPPER EXTREMITIES, BILAT LOWER EXTREMITIES DOPPLERED. BP STABLE, ART LINE INTACT, NO COMPLICATIONS. AFEBRILE. 1 UNIT OF PRBC ADMINISTERED. BUMEX ADMINISTERED. A/C MODE ON THE VENT. OVER BREATHS SETTINGS. FIO2 DECREASED TO 70%. RR 8, TV 500S, PEEP 8. ETCO2 LOW END OF NORMAL 20-30S. SPONT AND INDUCED COUGH. SMALL PRODUCTIONS. BOWEL SOUNDS ACTIVE, NO BM TODAY. OG INFUSING JEVITY AT 40ML/HR, NO RESIDUALS. LORENZO INTACT, ADEQUATE URINE OUTOUT, BUMEX GIVEN. NO NEW SKIN ISSUES NOTED. WOC CHANGED R) LOWER EXTREMITY DRESSING CHANGED. FOLLOW UP: CONTINUE TO MONITOR
--- NOTE | 2017-03-11 17:15 | NUR ---
Significant Event: Patient remains intubated. Follows commands in all extremities, nods head appropriately. Continues on continuous Dilaudid with demand dose. Gave PRN versed 2mg IVPx2. ST with HR 100-120's. SBP 140-150, new order for lopressor. Argatraban conintues at 0.5mcg/kg/min. Dopplered pedal pulse in right foot for first time at 1130 assessment, continue to dopple post tib. Able to dopple post tib and pedal pulses in left foot. Wound vac remains intact. Lungs asculated coarse with wheeze to slightly coarse throughout. PIP's 37-40.ETCO2 26-28. Overbreathes set vent rate. Becomes agitated and restless at times. Jevity off at 0715 due to distend and tight abdomen, abdominal xray done. Gave Dulcolax supp and restarted jevity at 1130. No BM.Hypoactive bowel sounds. Gave total of 60mg lasix. Villanueva patent. Changed to agressive SSI with q6h Accuchecks. Follow up: Give 1 unit PRBC and follow up with bumex 2mg. 1600 H/H and bmp, call to Dr. Webster
[2017-03-12 04:22] LABS: BICARBONATE 26.9 mmol/L (18.0-23.0); PCO2 37 mmHg (35-45); PO2 64 mmHg (80-90)
[2017-03-12 04:25] LABS: BASOPHIL # 0.1 K/uL (0.0-0.2); BASOPHIL % 0.5 %; EOSINOPHIL # 0.1 K/uL (0.0-0.5); EOSINOPHIL % 0.5 %; HEMATOCRIT 28.1 % (33.0-46.0); HEMOGLOBIN 9.2 g/dL (10.0-15.0); IMMATURE GRANULOCYTE # 0.1 K/uL (0.0-0.3); IMMATURE GRANULOCYTE % 0.9 %; LYMPHOCYTE # 1.3 K/uL (0.8-4.0); LYMPHOCYTE % 11.8 %; MCH 31.6 pg (27.0-34.0); MCHC 32.7 gm/dL (32.0-36.5); MCV 96.6 fl (83.0-98.0); MONOCYTE % 9.4 %; MPV 9.6 fl (9.4-12.4); NEUTROPHIL # (ANC) 8.5 K/uL (1.8-7.8); NEUTROPHIL % 76.9 %; NRBC % 0.2 /100WBC (0-0.00); PLATELET COUNT 278 K/uL (150-450); RBC 2.91 M/uL (3.50-5.50); RDW-CV 20.1 % (11.9-14.6); WBC 11.1 K/uL (4.0-11.0)
[2017-03-12 04:36] LABS: ALBUMIN 2.9 gm/dL (3.5-5.0); BLOOD UREA NITROGEN 11 mg/dL (6-24); CALCIUM 8.1 mg/dL (8.5-10.5); CO2 25 mMol/L (22-32); CREATININE 0.8 mg/dL (0.5-1.1); ESTIMATED GFR (MDRD EQUATION) > 60; MAGNESIUM 2.4 mg/dL (1.8-2.6); POTASSIUM 3.2 mMol/L (3.7-5.1)
[2017-03-12 04:37] LABS: ANION GAP 11.2 (10.0-19.0); CHLORIDE 117 mMol/L (96-110); PHOSPHORUS 1.3 mg/dL (2.5-4.9); SODIUM 150 mMol/L (135-145)
--- NOTE | 2017-03-12 04:53 | NUR ---
PT. ON VENT AT 65% FIO2 WITH SATS 90-94%. ETCO2 32-36. BREATH SOUNDS ARE COARSE RAILS T/O WITH OCCASIONAL EXPIRATORY WHEEZES. SUCTIONED A SMALL AMOUNT OF THICK YELLOW SECRETIONS. WILL CONTINUE TO FOLLOW UNTIL FURTHER NOTICE.
[2017-03-12 17:45] LABS: BICARBONATE 29.7 mmol/L (18.0-23.0); PCO2 39 mmHg (35-45); PO2 58 mmHg (80-90)
--- NOTE | 2017-03-12 19:16 | NUR ---
Significant Event: Patient remains intubated. Propofol started at 1507, currently at 40mcg/kg/min. Prior to sedation followed commandsx4, nodding head appropriately and was very agitated and restless. HR 100-120, did get as highas 150's with agitation prior to propofol. Nitro gtt started to keep SBP <120. Prior to nitro gtt sbp was 150-180. Radial pulses 2. ABle to dopple post tib and pedal pulse in right and left feet. Max temp 100.2. Scheduled tylenol discontinued, now PRN order for temp>101. Lungs ascultated coarse/wheezes-slighlty coarse throughout. PIP's became high 30's-40's and unable to manage them with versed and fentanyl pushes, Tv decreased to 400 from 450 and sedated patient. PIP's since changes are 28-30. Hypoactive bowel sounds, small-moderate loose bmx3. Decreased Jevity to 20ml/h,goal. Continue with 100ml water flushes q4h. Stopped carrier. Argatraban continues at 1.5mcg/kg/min, next ptthp at 0500. Dilaudid EPIC DIRECTOR continues. Replaced 40meq KCL and an additional 40meq KCL currently infusing. Accuchecks AC/HS, treatedx3, increased NPH to 28 units. Follow up: Recheck K level. Continue.
[2017-03-13 03:24] LABS: BICARBONATE 31.1 mmol/L (18.0-23.0); PCO2 39 mmHg (35-45); PO2 55 mmHg (80-90)
[2017-03-13 03:41] LABS: ANION GAP 8.9 (10.0-19.0); BLOOD UREA NITROGEN 14 mg/dL (6-24); CALCIUM 8.5 mg/dL (8.5-10.5); CHLORIDE 113 mMol/L (96-110); CO2 29 mMol/L (22-32); CREATININE 0.8 mg/dL (0.5-1.1); ESTIMATED GFR (MDRD EQUATION) > 60; HEMATOCRIT 28.8 % (33.0-46.0); HEMOGLOBIN 9.6 g/dL (10.0-15.0); MAGNESIUM 2.3 mg/dL (1.8-2.6); MCH 32.4 pg (27.0-34.0); MCHC 33.3 gm/dL (32.0-36.5); MCV 97.3 fl (83.0-98.0); MPV 10.2 fl (9.4-12.4); PLATELET COUNT 259 K/uL (150-450); POTASSIUM 2.9 mMol/L (3.7-5.1); RBC 2.96 M/uL (3.50-5.50); RDW-CV 19.4 % (11.9-14.6); WBC 9.2 K/uL (4.0-11.0)
[2017-03-13 05:18] LABS: ALBUMIN 2.4 gm/dL (3.5-5.0); BLOOD UREA NITROGEN 13 mg/dL (6-24); CALCIUM 8.4 mg/dL (8.5-10.5); CHLORIDE 113 mMol/L (96-110); CO2 28 mMol/L (22-32); CREATININE 0.8 mg/dL (0.5-1.1); ESTIMATED GFR (MDRD EQUATION) > 60
[2017-03-13 05:21] LABS: ANION GAP 9.9 (10.0-19.0); PHOSPHORUS 1.4 mg/dL (2.5-4.9); POTASSIUM 2.9 mMol/L (3.7-5.1); SODIUM 148 mMol/L (135-145)
--- NOTE | 2017-03-13 05:22 | NUR ---
PT. ON VENT FIO2 DOWN TO 45%. ETCO2 34-38. BREATH SOUNDS EXPIRATORY WHEEZES IN UPPERS AND COARSE CRACKLES IN THE BASES. SUCTIONED A SMALL AMOUNT OF THICK CREAM SECRETIONS. WILL CONTINUE TO MONITOR.
[2017-03-13 05:25] LABS: BANDED NEUTROPHIL # 0.9 K/uL (0.0-0.1); BANDED NEUTROPHILS % 10 %; LYMPHOCYTE # 2.7 K/uL (0.8-4.0); LYMPHOCYTE % 29 %; MONOCYTE # 0.4 K/uL (0.0-1.0); SEGMENTED NEUTROPHIL # 5.1 K/uL (1.8-7.8); SEGMENTED NEUTROPHIL % 55 %
--- NOTE | 2017-03-13 05:53 | NUR ---
patient is more relaxed and tolerate the vent while on iv propofol at 40 meq/kg/min will get agitated with suctioning and repositioning but will calm down fast,clear upper lungs sound diminished on the bases,thin creamy secrtions when suctioned,a/c vent mode fio2=45%,peep=8,e1exw=20%,tolerate t.f very well.pedal pulses are presented with doppler . FOLLOW UP:continue to monitor patient's hemodynamic and respiratory status closely
[2017-03-13 16:52] LABS: ALBUMIN 2.9 gm/dL (3.5-5.0); ANION GAP 11.8 (10.0-19.0); BLOOD UREA NITROGEN 16 mg/dL (6-24); CHLORIDE 110 mMol/L (96-110); CO2 29 mMol/L (22-32); CREATININE 0.8 mg/dL (0.5-1.1); ESTIMATED GFR (MDRD EQUATION) > 60; MAGNESIUM 2.3 mg/dL (1.8-2.6); POTASSIUM 3.8 mMol/L (3.7-5.1)
[2017-03-13 16:56] LABS: SODIUM 147 mMol/L (135-145)
--- NOTE | 2017-03-13 19:11 | NUR ---
Patient sedated with Propofol withdraws to stimuli. Dilaudid BOOKS BINDER. getting K+ coverage per K sliding scale. Albumin given with Bumex to follow. Large urinary output per jang. Started on Levophed sbp 60-70, now 100-110's. Dulcolax with no stools. ABD distended. 5-10 ml residual from feeding tube. Jevity at 20ml/hr. Right leg surgical site artur intact with serosanguous drng from right groin area. Wound vac to right calf area. Small yellow drng noted. Left artline intact. No coverage for blood sugars. Quadlumen IJ. Argetroban infusing as ordered.
[2017-03-14 04:12] LABS: BICARBONATE 34.8 mmol/L (18.0-23.0); PCO2 38 mmHg (35-45); PO2 61 mmHg (80-90)
[2017-03-14 04:15] LABS: HEMATOCRIT 29.7 % (33.0-46.0); HEMOGLOBIN 9.6 g/dL (10.0-15.0); MCH 31.1 pg (27.0-34.0); MCHC 32.3 gm/dL (32.0-36.5); MCV 96.1 fl (83.0-98.0); MPV 9.8 fl (9.4-12.4); RBC 3.09 M/uL (3.50-5.50); RDW-CV 17.7 % (11.9-14.6); WBC 13.8 K/uL (4.0-11.0)
[2017-03-14 04:30] LABS: ALBUMIN 3.4 gm/dL (3.5-5.0); ANION GAP 11.7 (10.0-19.0); BLOOD UREA NITROGEN 17 mg/dL (6-24); CALCIUM 9.4 mg/dL (8.5-10.5); CHLORIDE 103 mMol/L (96-110); CO2 30 mMol/L (22-32); CREATININE 0.8 mg/dL (0.5-1.1); ESTIMATED GFR (MDRD EQUATION) > 60; MAGNESIUM 2.4 mg/dL (1.8-2.6); PHOSPHORUS 3.5 mg/dL (2.5-4.9); PLATELET COUNT 362 K/uL (150-450); POTASSIUM 3.7 mMol/L (3.7-5.1); SODIUM 141 mMol/L (135-145)
[2017-03-14 04:58] LABS: ABSOLUTE NEUTROPHIL CT (ANC) 8.4 K/uL (1.8-7.8); BANDED NEUTROPHIL # 1.1 K/uL (0.0-0.1); BANDED NEUTROPHILS % 8 %; LYMPHOCYTE # 3.9 K/uL (0.8-4.0); LYMPHOCYTE % 28 %; MONOCYTE # 0.4 K/uL (0.0-1.0); SEGMENTED NEUTROPHIL # 7.3 K/uL (1.8-7.8); SEGMENTED NEUTROPHIL % 53 %
--- NOTE | 2017-03-14 05:45 | NUR ---
PT. ON VENT AT 40% WITH SAT 93-95%. ETCO2 32-40. BREATH SOUNDS HAVE BEEN I/E WHEEZES T/O. SUCTIONED A MODERATE AMOUNT OF THICK CREAM SECRETIONS. WILL CONTINUE TO MONITOR UNTIL FURTHER NOTICE.
--- NOTE | 2017-03-14 07:32 | NUR ---
Significant Event: Patient sedated on 40 mcg/kg/min of propofol for most of shift. Sedation weaned this am for CPAP trials. Propofol back to 30 mcg/kg/min at 0545. When sedation lightened, patient opens eyes and follows commands. Dilaudid PATROL MOTHER continues. Albumin and bumex given x2 per orders. Urine output 5260 ml. Bowel movement x2. Abdomen continues to be distended. Tube feed continues with no residules noted. Levo off at 0155. NPH insulin held per physician orders. Max temp 100.6 per jang temp probe. Tylenol given x1 and temp down to 99.9. Follow up: continue to monitor
--- NOTE | 2017-03-14 08:32 | NUR ---
A - NUTRITION F/U. ON VENT, SEDATION OFF FOR CPAP TRIALS THIS AM. GLU 118, BUN/HYDROELECTRIC PLANT ELECTRICIAN 17/0.8, ALB 3.4. PT W/ 1-2+ EDEMA T/O, ON LASIX. WOUND VAC TO R) CALF. TF JEVITY 1.5 AT 40 ML/HR = 1440 KCALS, 61 GM PROTEIN, 730 ML FREE H20 W/ 100 ML FLUSHES EVERY 6 HRS IS WELL-TOLERATED. D - AT RISK W/ INABILITY TO TAKE ORAL NUTRITION R/T RELIANCE ON VENT AEB EN. I - GOAL: CONT TF AT GOAL RATE. M/E - WILL MONITOR EN AND F/U IN 3-4 DAYS.
--- NOTE | 2017-03-14 15:41 | NUR ---
Significant Event: Patient alert to sound. Follows commands and nods appropriately. Patient drowsy upon last assessment but did follow some commands and withdraw in all 4 extremities. PERRLA. VSS. Genralized edema noted. Febrile. 100.8 highest. Tylenol given. Currently 99.5. Ventilaton in A/C mode at this time. CPAP mode trialed this AM. Patiently tolerated well. Frequent oral and ET suction. LS slightly coarse to clear and diminished. Distended semi soft abdomen. BM X2 this shift. Villanueva in place draining yellow adequate urine. OG infusing Jevity at 20 ml/h with 100 ml Q4H. No residuals. R) lower leg WV changed this AM. R) thigh 4 surgical incisions with artur. Open to air. R) groin. Gauze and tegaderm. R) IJ infusing with no complications. Propfol, Argatroban, and Dilaudid WIRE DROPPER at this time. Full lift. Sat at bedside with therapy. Pulses doppled with assessments. Accuchecks ACHS with SSI. Chest CT this shift. at bedside. Follow up:
--- NOTE | 2017-03-14 16:55 | NUR ---
No changes to vent settings t/o shift, continued on 40% Fio2. Completed CPAP trial this morning and tolerated well. CT transport with no complications, will continue monitor
[2017-03-15 04:44] LABS: BICARBONATE 29.9 mmol/L (18.0-23.0); PCO2 42 mmHg (35-45); PO2 61 mmHg (80-90)
[2017-03-15 05:02] LABS: ANION GAP 9.7 (10.0-19.0); BLOOD UREA NITROGEN 20 mg/dL (6-24); CALCIUM 8.9 mg/dL (8.5-10.5); CHLORIDE 103 mMol/L (96-110); CO2 30 mMol/L (22-32); CREATININE 0.8 mg/dL (0.5-1.1); ESTIMATED GFR (MDRD EQUATION) > 60; MAGNESIUM 2.4 mg/dL (1.8-2.6); PHOSPHORUS 5.6 mg/dL (2.5-4.9); POTASSIUM 3.7 mMol/L (3.7-5.1); SODIUM 139 mMol/L (135-145)
--- NOTE | 2017-03-15 05:21 | NUR ---
Significant Event: Pt has been sedated with propofol and had a dilaudid LIVESTOCK RANCH HAND this shift. She opens eyes to voice. Follows commands in all 4 extremities. Pupils are equal and reactive. Pulses in the R) lower extremity have been dopplered this shift. On the vent in A/C this shift. TF running through OG. Villanueva in place with good urine output. Bowel sounds hypoactive, no BM this shift. R) IJ and L) radial Art line in place. Follow up: Romeo bryant
[2017-03-15 05:44] LABS: HEMATOCRIT 29.1 % (33.0-46.0); HEMOGLOBIN 9.7 g/dL (10.0-15.0); MCH 32.3 pg (27.0-34.0); MCHC 33.3 gm/dL (32.0-36.5); MPV 10.3 fl (9.4-12.4); PLATELET COUNT 303 K/uL (150-450); RDW-CV 16.3 % (11.9-14.6); WBC 11.5 K/uL (4.0-11.0)
[2017-03-15 06:28] LABS: ABSOLUTE NEUTROPHIL CT (ANC) 8.6 K/uL (1.8-7.8); BANDED NEUTROPHIL # 0.5 K/uL (0.0-0.1); BANDED NEUTROPHILS % 4 %; LYMPHOCYTE # 1.7 K/uL (0.8-4.0); LYMPHOCYTE % 15 %; MONOCYTE # 1.2 K/uL (0.0-1.0); SEGMENTED NEUTROPHIL # 8.2 K/uL (1.8-7.8); SEGMENTED NEUTROPHIL % 71 %
--- NOTE | 2017-03-15 17:50 | NUR ---
SIGNIFICANT EVENT: PATIENT SEDATED WITH PROPOFOL AT 15 MCG/KG/MIN. OPENS EYES SPONT AND TO VOICE. PUPILS EQUAL AND REACTIVE. NODS APPROPRIATELY. MOVES ALL 4 EXTREMITIES SPONTANEOUSLY AND PURPOSEFULLY. FOLLOWS COMMANDS IN ALL 4 EXTREMITIES. R) LOWER EXTREMITY WEAKER THAN L). PT/OT WORKING WITH PATIENT. PATIENT REPOSITIONED EVERY 2 HOURS. PATIENT HAS BEEN IN SINUS RHYTHM, HR 80-90S. PULSES PALPABLE THROUGHOUT. EDEMA PRESENT. BP STABLE, SBP 90-110S, MAP>65. MAX TEMP 101.3. DOPPLERED PULSES IN R) LOWER EXTREMITY TO VERIFY. PATIENT CONTINUES TO REQUIRE VENT SUUPORT, A/C MODE, 30% FIO2, TV 450S, RR 20S, PEEP 5. CPAP SUCCESSFUL FOR APROX 2 HOURS TODAY. CHEST TUBES BILATERALLY PLACED PER DR. TAYLOR, 400ML OUT ON R) #1, L) 300 ML OUT. SPONT COUGH, OVER BREATHS VENT SETTINGS. SATS MID 90S. ETCO2 WITHIN NORMAL. BOWEL SOUNDS PRESENT, 1 SMALL BM. OG INFUSING JEVITY AT 20ML/HR, NO RESIDUALS. LORENZO INTACT, ADEQUATE URINE OUTPUT. NO NEW SKIN ISSUES NOTED. FOLLOW UP: PICC TO BE PLACED IN AM, POSSIBLE EXTUBATION
[2017-03-16 04:26] LABS: BICARBONATE 26.4 mmol/L (18.0-23.0); PCO2 38 mmHg (35-45); PO2 65 mmHg (80-90)
[2017-03-16 04:43] LABS: ALBUMIN 2.7 gm/dL (3.5-5.0); ANION GAP 12.8 (10.0-19.0); BLOOD UREA NITROGEN 16 mg/dL (6-24); CALCIUM 8.6 mg/dL (8.5-10.5); CHLORIDE 105 mMol/L (96-110); CO2 24 mMol/L (22-32); CREATININE 0.7 mg/dL (0.5-1.1); ESTIMATED GFR (MDRD EQUATION) > 60; MAGNESIUM 2.3 mg/dL (1.8-2.6); PHOSPHORUS 3.1 mg/dL (2.5-4.9); POTASSIUM 3.8 mMol/L (3.7-5.1); SODIUM 138 mMol/L (135-145)
[2017-03-16 05:04] LABS: BASOPHIL # 0.1 K/uL (0.0-0.2); BASOPHIL % 0.8 %; EOSINOPHIL # 0.4 K/uL (0.0-0.5); EOSINOPHIL % 4.3 %; HEMATOCRIT 30.7 % (33.0-46.0); HEMOGLOBIN 10.1 g/dL (10.0-15.0); IMMATURE GRANULOCYTE # 0.2 K/uL (0.0-0.3); IMMATURE GRANULOCYTE % 2.5 %; LYMPHOCYTE % 11.3 %; MCH 31.9 pg (27.0-34.0); MCHC 32.9 gm/dL (32.0-36.5); MCV 96.8 fl (83.0-98.0); MONOCYTE # 0.5 K/uL (0.0-1.0); MONOCYTE % 6.1 %; MPV 10.3 fl (9.4-12.4); NEUTROPHIL # (ANC) 6.4 K/uL (1.8-7.8); NRBC % 0 /100WBC (0-0.00); PLATELET COUNT 269 K/uL (150-450); RBC 3.17 M/uL (3.50-5.50); RDW-CV 15.5 % (11.9-14.6); WBC 8.6 K/uL (4.0-11.0)
--- NOTE | 2017-03-16 07:01 | NUR ---
Significant Event: Pt was sedated with propofol for most of this shift. Intubated. Has been restless and agitated throughout this shift. Opens eyes spontaneously. Moves all extremities spontaneously and to command. Continues on the vent thoughout this shift. Changed to CPAP this morning. Art line D/C'd. OG tube in place with tube feed running at 20ml/hr. Wound vac to the R) calf. Bilat chest tubes in place. Schedualed supositories bowel sounds hypoactive. R) IJ in place. Dilaudid JUTE BAG CUTTING MACHINE OPERATOR. Argatroban running. Follow up: fuad bryant
--- NOTE | 2017-03-16 18:29 | NUR ---
Significant Event: Patient extubated at 0845. UP to chair at 0930 with physicial therapy. 2 assist, gait belt and walker. Does not bear weight on her right leg. Wound VAC to right lower ext. Did have a fever of 101.[address] MD aware. CT scan of RLE this shift, does apparently have some infection there. Plan for I/D tomorrow with Dr. Bonilla. NPO after midnight. Continues on agatroban at 3.5mcg/kg/min. Follow up:
[2017-03-17 05:17] LABS: ALBUMIN 2.6 gm/dL (3.5-5.0); ANION GAP 12.9 (10.0-19.0); BLOOD UREA NITROGEN 12 mg/dL (6-24); CALCIUM 8.3 mg/dL (8.5-10.5); CHLORIDE 106 mMol/L (96-110); CO2 24 mMol/L (22-32); CREATININE 0.6 mg/dL (0.5-1.1); ESTIMATED GFR (MDRD EQUATION) > 60; MAGNESIUM 2.1 mg/dL (1.8-2.6); PHOSPHORUS 2.5 mg/dL (2.5-4.9); POTASSIUM 3.9 mMol/L (3.7-5.1); SODIUM 139 mMol/L (135-145)
[2017-03-17 05:20] LABS: HEMATOCRIT 27.1 % (33.0-46.0); HEMOGLOBIN 8.7 g/dL (10.0-15.0); MCH 31.1 pg (27.0-34.0); MCHC 32.1 gm/dL (32.0-36.5); MCV 96.8 fl (83.0-98.0); MPV 9.9 fl (9.4-12.4); RDW-CV 15.4 % (11.9-14.6); WBC 14.3 K/uL (4.0-11.0)
[2017-03-17 05:22] LABS: PLATELET COUNT 332 K/uL (150-450)
--- NOTE | 2017-03-17 05:57 | NUR ---
Significant Event: PATIENT IS A/O X3. SR WITH HRS 80S-90S, AFIBRILE, DOPPLE RIGHT PEDIAL/POST TIB PULSE. PATIENT ON 2L NC WITH SA02 LOW TO MID 90S. LUNG SOUNDS ARE SLIGHTLY COURSE AT TIMES TO CLEAR AND DIM. CHEST TUBES BILATERALLY, STRAW COLOR DRAINAGE, NO FLUCTUATIONS. HYPO BOWEL SOUNDS, NPO AT MIDNIGHT. NO BM. PATIENT HAVING I&D OF RIGHT LEG, NEW WOUND VAC PLACED TODAY. NORCO GIVEN Q4H PRN FOR PAIN. Follow up: I&D OF RIGHT LEG.
[2017-03-17 06:03] LABS: BANDED NEUTROPHILS % 7 %; LYMPHOCYTE # 1.1 K/uL (0.8-4.0); LYMPHOCYTE % 8 %; MONOCYTE # 1.6 K/uL (0.0-1.0); SEGMENTED NEUTROPHIL % 70 %
--- NOTE | 2017-03-17 09:08 | NUR ---
A - A/O X 3. GLU 118, BUN/REPRODUCTION ORDER PROCESSOR 12/0.6, ALB 2.6, WBC 14.3. PT W/ 1-2+ EDEMA T/O. NPO FOR I&D OF R) CALF WOUND. D - AT RISK W/ INCREASED NUTRIENT NEEDS R/T ALTERED SKIN INTEGRITY AEB WOUND. I - GOAL: 50% OR BETTER INTAKE BY NEXT REVIEW. M/E - WILL OFFER ISABELLE BID W/ BF AND DINNER AND ENSURE W/ LUNCH AND MONITOR ORAL INTAKE. F/U IN 3-5 DAYS.
[2017-03-17 11:41] LABS: SODIUM 148 mMol/L (135-145)
--- NOTE | 2017-03-17 13:00 | NUR ---
Patient in OR and no family in the ICU at this time. Will follow.
--- NOTE | 2017-03-17 15:58 | NUR ---
Significant Event: A/Ox3. Vital signs stable on room air. Right leg washout and debridement done by Dr. Bonilla. BKA scheduled for tomorrow. 2 assist. Bilateral pleural chest tubes in place with straw colored drainage. Argatroban D/C'd. No BM today, bowel sounds active. Diabetic diet. Lung sounds clear and diminshed. Afebrile. Bedrest until 2100. PRN norco given for pain. Under my care from [id number]. Report to Michelle Wilder RN. Follow up: NPO after midnight for surgical procedure tomorrow.
--- NOTE | 2017-03-17 18:55 | NUR ---
Significant Event: Took over cares at 1500 from Elly and Jacobo Oliver. Patient just returning from OR. Patient A/O X3. Slightly confused but reorients and answers questions appropriately. Follows commands. moves all extremities spontaneously. Patient states "lower right leg just feels like its not there". VSS. Hypotensive after OR. Goal to keep MAPs>60. Afebrile. Pulses doppled to the right foot. Palpable to the left. R) foot cool to the touch. patient able to wiggles toes but not dorsi or plantar flex. 2L NC with sats in the low 90s. LS clear and diminished. Productive cough at times. Bilateral chest tubes to suction. No crepitus noted. BS active X4. Passing gas. Barrera intact draining adequate urine. Numerous skin issues. See charting. R) PICC infusing with no complications. Bedrest until 1930. [place] given this evening for pain. SOme relief noted. and family at bedside. Cooperative. Teary eyed about surgery tomorrow. Follow up: NPO after midnight; consents for ambutation signed; surgical bath
[2017-03-18 04:24] LABS: ALBUMIN 2.3 gm/dL (3.5-5.0); ANION GAP 8.3 (10.0-19.0); BLOOD UREA NITROGEN 10 mg/dL (6-24); CALCIUM 8.2 mg/dL (8.5-10.5); CHLORIDE 110 mMol/L (96-110); CO2 25 mMol/L (22-32); CREATININE 0.6 mg/dL (0.5-1.1); ESTIMATED GFR (MDRD EQUATION) > 60; MAGNESIUM 2.2 mg/dL (1.8-2.6); PHOSPHORUS 3.6 mg/dL (2.5-4.9); POTASSIUM 4.3 mMol/L (3.7-5.1); SODIUM 139 mMol/L (135-145)
[2017-03-18 04:31] LABS: BASOPHIL # 0.1 K/uL (0.0-0.2); BASOPHIL % 0.5 %; EOSINOPHIL # 0.4 K/uL (0.0-0.5); EOSINOPHIL % 3.1 %; HEMOGLOBIN 9.4 g/dL (10.0-15.0); IMMATURE GRANULOCYTE # 0.1 K/uL (0.0-0.3); IMMATURE GRANULOCYTE % 1.1 %; LYMPHOCYTE # 2.3 K/uL (0.8-4.0); LYMPHOCYTE % 17.9 %; MCH 31.8 pg (27.0-34.0); MCHC 32.4 gm/dL (32.0-36.5); MONOCYTE # 1.1 K/uL (0.0-1.0); MONOCYTE % 8.8 %; NEUTROPHIL # (ANC) 8.9 K/uL (1.8-7.8); NEUTROPHIL % 68.6 %; NRBC % 0 /100WBC (0-0.00); PLATELET COUNT 297 K/uL (150-450); RBC 2.96 M/uL (3.50-5.50); RDW-CV 15.3 % (11.9-14.6); WBC 12.9 K/uL (4.0-11.0)
--- NOTE | 2017-03-18 07:10 | NUR ---
Significant Event: A&Ox3, hypotension. SBP:80s-100s MAPs mid 50s-70s. 500ml NS bolus to keep maps greater than 60 at beginning of shift. No issues after bolus. refused dressing changes to right leg. Patient agreed to dressing change of right lower extremity during CHG surgical bath. New bedding and gown applied. Fentanyl, morphine, dilaudid, and norco for pain control and beginning of shift and during dressing chagne. Patient reported increased burning sensation that was not relieved by pain medication. Treated blood sugar of 261 per ordered aggressive sliding scale and burning subsided. Chest tube #1 (right side) had 30mls out, chest tube #2 (left side) had 30mls out, both connected to continuous suction. Right PICC with intermittent ABX, no complications. Follow up:
--- NOTE | 2017-03-18 12:40 | NUR ---
Patient in OR, no family present in ICU at this time. Will follow.
--- NOTE | 2017-03-18 19:24 | NUR ---
Significant Event: To OR most of the day for right above the knee amputation. Vital signs stable with 2L O2/NC. Dilaudid SALES CENTER MANAGER started post-op and incremental dose increased x1 per pain protocol; pain controlled to tolerable level at this time. Tolerating clear liquids without difficulty. Family at bedside. Follow up: continue
--- NOTE | 2017-03-19 05:07 | NUR ---
SIGNIFICANT EVENT: PATIENT IN A GREAT DEAL OF PAIN FROM PHANTOM LIMB NERVE PAIN. RIGHT LEG AMPUTATED ABOVE THE KNEE. BP 100-110S. AFEBRILE. STUMP COVERED WITH GAUZE WRAP. GABAPENTIN STARTED FOR NERVE PAIN. CONTINUED ON DILAUDID TRANSITIONAL NURSE. 145 ATTEMPTS WITH 34 DELIVERIES. FOLLOW UP: MONITOR PAIN
[2017-03-19 05:31] LABS: ALBUMIN 2.3 gm/dL (3.5-5.0); ANION GAP 10.2 (10.0-19.0); BLOOD UREA NITROGEN 5 mg/dL (6-24); CALCIUM 8.2 mg/dL (8.5-10.5); CHLORIDE 107 mMol/L (96-110); CO2 25 mMol/L (22-32); CREATININE 0.5 mg/dL (0.5-1.1); ESTIMATED GFR (MDRD EQUATION) > 60; MAGNESIUM 2.1 mg/dL (1.8-2.6); POTASSIUM 4.2 mMol/L (3.7-5.1); SODIUM 138 mMol/L (135-145)
[2017-03-19 05:44] LABS: BASOPHIL # 0.1 K/uL (0.0-0.2); BASOPHIL % 0.7 %; EOSINOPHIL # 0.3 K/uL (0.0-0.5); HEMATOCRIT 25.6 % (33.0-46.0); HEMOGLOBIN 8.2 g/dL (10.0-15.0); IMMATURE GRANULOCYTE # 0.1 K/uL (0.0-0.3); IMMATURE GRANULOCYTE % 0.9 %; LYMPHOCYTE # 1.9 K/uL (0.8-4.0); LYMPHOCYTE % 13.5 %; MCH 31.3 pg (27.0-34.0); MCV 97.7 fl (83.0-98.0); MONOCYTE # 1.2 K/uL (0.0-1.0); MPV 9.7 fl (9.4-12.4); NEUTROPHIL # (ANC) 10.2 K/uL (1.8-7.8); NEUTROPHIL % 73.9 %; NRBC % 0 /100WBC (0-0.00); PLATELET COUNT 331 K/uL (150-450); RBC 2.62 M/uL (3.50-5.50); RDW-CV 15.4 % (11.9-14.6); WBC 13.8 K/uL (4.0-11.0)
--- NOTE | 2017-03-19 17:36 | NUR ---
Significant Event: Patient is in good spirits. She is willing to try hard and learn to ambulate with her stump. She was up to the chair x1 today with 2 assist pivot and did great. We are starting to get her pain under control. Clayton 1tab given X3 today. Neurontin dose increased. She does not have a burning phantom pain anymore. Vitals are stable. She had 300cc out of right chest tube and 130 out of the left. Tolerating 3L O2 well. Follow up: Continue
--- NOTE | 2017-03-20 02:37 | NUR ---
SIGNIFICANT EVENT: NORCO GIVEN Q2H FOR RIGHT LEG PAIN. PATIENT IS AOx3. PAIN HAS BEEN UNDER CONTROL DURING THE SHIFT FOR THE MOST PART. STUMP DRESSING CHANGED. PATIENT WAS ABLE TO EAT A LITTLE BIT DURING THE NIGHT. BP 100-100S. PATIENT SLEPT IN CHAIR UNTIL TRANSFER. FOLLOW UP: TRANSFER FROM ICU TO PCU
[2017-03-20 04:51] LABS: BASOPHIL # 0.1 K/uL (0.0-0.2); BASOPHIL % 0.6 %; EOSINOPHIL # 0.2 K/uL (0.0-0.5); EOSINOPHIL % 1.5 %; HEMATOCRIT 24.8 % (33.0-46.0); HEMOGLOBIN 8.1 g/dL (10.0-15.0); IMMATURE GRANULOCYTE # 0.2 K/uL (0.0-0.3); IMMATURE GRANULOCYTE % 1.1 %; LYMPHOCYTE # 2.4 K/uL (0.8-4.0); MCH 31.9 pg (27.0-34.0); MCHC 32.7 gm/dL (32.0-36.5); MCV 97.6 fl (83.0-98.0); MONOCYTE # 1.3 K/uL (0.0-1.0); MONOCYTE % 9.4 %; MPV 9.8 fl (9.4-12.4); NEUTROPHIL # (ANC) 9.9 K/uL (1.8-7.8); NEUTROPHIL % 70.4 %; NRBC % 0 /100WBC (0-0.00); PLATELET COUNT 394 K/uL (150-450); RBC 2.54 M/uL (3.50-5.50); RDW-CV 15.6 % (11.9-14.6); WBC 14.1 K/uL (4.0-11.0)
[2017-03-20 04:53] LABS: ALBUMIN 2.2 gm/dL (3.5-5.0); ANION GAP 9.5 (10.0-19.0); BLOOD UREA NITROGEN 6 mg/dL (6-24); CALCIUM 8.5 mg/dL (8.5-10.5); CHLORIDE 104 mMol/L (96-110); CO2 26 mMol/L (22-32); CREATININE 0.7 mg/dL (0.5-1.1); ESTIMATED GFR (MDRD EQUATION) > 60; MAGNESIUM 2.1 mg/dL (1.8-2.6); PHOSPHORUS 3.3 mg/dL (2.5-4.9); POTASSIUM 4.5 mMol/L (3.7-5.1); SODIUM 135 mMol/L (135-145)
--- NOTE | 2017-03-20 05:17 | NUR ---
Significant Event: RESUMED CARE FROM . A&Ox3, VSS on 3L. Dilaudid SENIOR PROPERTY MANAGER. Transfered from ICU to PCU in chair. Patient states she is comfortable. Villanueva patent. IV ABX into right PICC, no complications. Resting well since transfer. Follow up: needs 5 vessel CABG, no date at this time.
--- NOTE | 2017-03-20 18:31 | NUR ---
Significant Event:Patient has been up in chair throughout shift. Up to commode once. Does transfer well with walker. Has taken Elim twice for c/o pain. Foely bag changed only for leaking. Dc'd IV antibiotics. Humidified air. dressing change to stump. Hangar to put shell on stump. Follow up:DC jang?, protector to stump
--- NOTE | 2017-03-21 03:52 | NUR ---
Significant Event: A&Ox3, VSS on 2-2.5L O2. Lower BP at 3rd assessment 86/50 MAP 65. Patient dips low in the early mornings. Re-took BP and improved to SBP low 90s. Map remained greater than 65 at all times. Bilat chest tubes to suction. 70mls out of right (#1) and zero out of left (#2). Dilaudid DIRECTOR OF PSYCHIATRY and PO [place] for pain control. Stump sheild to right stump, C/D/I. Will removed jang at 0500 per patient and PT/OT request. ACHS Follow up: continue with plan of care
--- NOTE | 2017-03-21 13:49 | NUR ---
A-NUTRITION F/U S/P R)ALIS ON 03/18 LABS: NA 135, K+ 4.5, GLU 251, BUN 6, HEAD CHAR FILTER TANK TENDER 0.7, ALB 2.2 MEDS: NORCO, PRN BOWEL MEDS, ZOFRAN, NARCAN, DILAUDID, NEURONTIN, ULTRAM DIET RX: REGULAR W/ENSURE QD AND ISABELLE BID. PO INTAKE REF-100%. VISITED W/PT RE: APPETITE AND SUPPLEMENTS. PT DOES NOT LIKE THE VANILLA ENSURE ENLIVE; SHE WAS AGREEABLE TO TRYING THE CHOCOLATE FLAVOR. SHE DOES LIKE THE ISABELLE, BUT PREFERS THE ORANGE FLAVOR. PT REPORTS HER APPETITE IS IMPROVING. EST. NUTR NEEDS RE-EVALUATED: 3190-2591 KCALS (20-25 KCALS/KG) 80-120 GM PROTEIN (1.0-1.5 GM/KG) D-AT NUTRITION RISK W/INCREASED NUTRIENT NEEDS R/T HEALING AEB RECENT R)DAMIANA I-1)CHANGE ENSURE ENLIVE TO LORI. FLAVOR 2)CHANGE ISABELLE BID TO ORANGE ONLY M/E-GOAL: PO INTAKE >/=50% BY NEXT F/U 1)F/U PO INTAKE, SUPPLEMENT, SKIN, AND POC IN 3-5 DAYS 2)ASSIST NEEDED
--- NOTE | 2017-03-21 16:39 | NUR ---
Significant Event: A/OX3, VSS ON 2L PER NC. PT. TRANSFERS 1 ASSIST TO BSC. STUMP PROTECTOR ON/OFF THROUGHOUT SHIFT, DRESSING CHANGED TO RIGHT STUMP THIS AM. PT. HAS HAD PAIN ON/OFF THROUGHOUT SHIFT, 1 TAB OF NORCO GIVEN X1 @ 1447 & ULTRAM GIVEN @ 1133 FOR PAIN. PT. CONINTUES ON DILAUDID ASSOCIATE ACCOUNT EXECUTIVE @ 0.3mg DEMAND ONLY, PT. HAD 52-DEMANDS WITH 30-DELIVERED. TRIPLE LUMEN PICC TO RIGHT UPPER ARM. BILATERAL CHEST TUBES HAD NO DRAINAGE OUT, DRESSING REINFORCED, CHEST X-RAY TODAY, HOPE TO BE PULLED TOMORROW. PT. HAS VOIDED SINCE LORENZO WAS D/C'D, HAD 1200mL UOP X1 VOID. NO BM TODAY. MOM HERE IN ROOM ALL DAY, PT. HASN'T GOTTEN ANY REST. WORKED HARD TODAY WITH PT/OT. DR. MARIE SAW PT. TODAY, POSSIBLE PORT STEWARD BY TUESDAY. Follow up: CONTINUE WITH POC.
--- NOTE | 2017-03-22 04:28 | NUR ---
Significant Event: A/O, VSS, 1-2L O2, Etco2 wnl, afebrile, DAIRY SCIENTIST continues to R)picc line, 62-demands, 11-delivered, [place] and Ultram also given for pain control, 1assist to bsc, strong transfers, R)stump dressing changed, CT #1-50ml out, CT #2- no output, dressing dry/intact, artur to R)leg all intact, hs accucheck 323 Follow up: remove CTs today? to [facility] this week?
--- NOTE | 2017-03-22 13:15 | NUR ---
Talked to Priya on [facility] this a.m. and she says they will consider patient once her chest tubes are out. Talked with patient and she wants to go to inpt. rehab when able. She says she is ready to have more therapy. Says she really is encouraged with the therapy she is getting and she feels stronger afterwards. Talked about her home and she has 6 steps to get into her home and then everything is on one level. She says her has talked about a ramp and she thinks he is already working on one. She talks about her horse Ramu and her goal is to ride Ramu again. Her chest tubes were removed today. Called and updated Priya. Patient is on a LAND COMMISSIONER and has to be off the LAND COMMISSIONER before going to GIRP. Will need to preauth with insurance prior to GIRP. Anticipate may be ready midweek for GIRP. Will follow.
--- NOTE | 2017-03-22 17:56 | NUR ---
PATIENT UP TO CHAIR AND WORKING WITH PT/OT. PATIENT DID NOT WANT TO WEAR STUMP PROTECTOR. CHIQUITA COFFMAN CALLED AND CAME TO ADJUST PROTECTOR. DRESSING CHANGED TO STUMP, LINDA ALLNE REMOVED SOME OF SYBIL. DR TAYLOR D/C'D CHEST TUBES THIS AM. 2L NC. CONTINUED ROOM ATTENDANTS, 45 ATTEMPTS AND 12 GIVEN. NORCO GIVEN THIS AM, TRAMODOL GIVEN THIS AFTERNOON.
--- NOTE | 2017-03-23 11:00 | NUR ---
Had call from Mary Kate at [facility] (who does inpt reviews) and she said we need to start the preauth for inpatient rehab now, as may take several days to process. Talked to Priya on [facility] and she will start the preauth. Patient does need to be off the PROPERTY DAMAGE CLAIMS ADJUSTOR before [facility]P will accept. Nursing will work with patient and on weaning the PROPERTY DAMAGE CLAIMS ADJUSTOR. Will follow.
--- NOTE | 2017-03-23 16:19 | NUR ---
A&O. 1PA. SBP 100'S. HR 80'S-90'S. WEANED TO RA IS AT BEDSIDE. AFEBRILE. C/O PAIN TO R) AKA WEANED REHAB CONSULTANT AT 1126. PO DILAUDID AND ULTRAM PAIN IS TOLERABLE. PICC TRI LUMEN HUMAIRA SL FLUSHES NO BLOOD RET ON WHITE AND BLUE.CX TUBE SITE CDI. STUMP DSG CHANGE GAUZE/KERLIX/SLEEVE. NEEDS CABG. ACHS. GIRP TOMORROW OR TUESDAY IF STAYS OFF REHAB CONSULTANT. FAMILY AT BEDSIDE
--- NOTE | 2017-03-23 16:56 | NUR ---
A&O-CONFUSED. 1-2PA. SBP 100'S. HR 90'S-120'S. CAME BACK FROM SX AND REQUIRED 10L MASK. TACHY IN 120'S RR 30'S-40'S. ON DIL POWER PLANT OPERATOR APPRENTICE 0.2 CANT,0.2DEM 10 MIN LO. 500 BOLUS PACU. SEPSIS? PERF BOWEL BC PAST HERNIA MESH INFILTRATED TO GROIN. LS COARSE. LORENZO 1200 UO. NO BM. NG TO LIS 600ML OUT . ABD DSG CHANGES PRN AND REMOVE POD 3. MICHI ENRIKE INTACT. NS @100. FAMILY AT BEDSIDE
--- NOTE | 2017-03-24 04:30 | NUR ---
Patient is alert and oriented x4. Lung sounds are clear. 2L of oxygen at HS. One person assist. Dressing changed to stump x2. Patient does not like to wear sleeve. PICC right upper arm tri lumen flushes no blood return on white and machado lumen. Needs CABG. GIRP tomorrow or tuesday. Weaned off ROUTER OPERATOR RADIAL. Given dilaudid, ultram and tylenol for pain. VSS. Diabetic diet.
--- NOTE | 2017-03-24 13:30 | NUR ---
Talked to Priya on [facility] and she is working with patient's insurance company on the precert. She has talked with them and hopes to hear later today regarding their decision. She says if insurance approves they could accept patient to [facility] on Tuesday. Transfer to [facility] on Tuesday is pending insurance approval. Will follow.
--- NOTE | 2017-03-24 14:26 | NUR ---
A-NUTRITION F/U VISITED W/PT RE: CHOCOLATE ENSURE. PT DOES NOT LIKE THE CHOCOLATE ENSURE AND REQUESTS THAT SHE NO LONGER RECEIVE IT. SHE IS DRINKING THE ISABELLE BID WELL AND REPORTS THAT HER APPETITE IS IMPROVING PLAN IS FOR GIRP SOON. NO NEW LABS SINCE LAST F/U MEDS: DILAUDID DIET RX: CONSISTENT CARB W/ISABELLE BID AND ENSURE ENLIVE QD. PO INTAKE OF MEALS HAS BEEN REF (X1)-100%; AVG SINCE LAST F/U IS 50%. EST NUTR NEEDS: 2511-4348 KCALS AND 80-120 GM PROTEIN D-AT NUTRITION RISK W/INCREASED NUTRIENT NEEDS R/T HEALING AEB R)BKA I-1)D/C ENSURE ENLIVE QD 2)CONTINUE ISABELLE BID M/E-GOAL: PO INTAKE >/=75% BY DISCHARGE 1)F/U PO INTAKE, SUPPLEMENT, SKIN, AND POC IN 4-6 DAYS 2)ASSIST NEEDED
--- NOTE | 2017-03-24 17:09 | NUR ---
Significant Event: VSS AND RA WHILE AWAKE. AFEBRILE. ULTRAM X2 AND PO DILAUDID X1 FOR RT)STUMP PAIN, WITH RELIEF. GAVE A SL NITRO X1 AND A GI COCKTAIL MID MORNING FOR EPISODE OF CP WHICH RESOLVED; EKG WAS UNCHANGED FROM PREVIOUS AND TROPONIN DRAWN WAS NEGATIVE. WORKS WITH PT/OT, WENT TO THE GIRP GYM THIS AFTERNOON AND WALKED. ENCOURAGED TO USE THE STUMP STOCKING AND HARD COVER WHEN UP, SHE SOMETIMES REFUSES. AMBULATES WITH WALKER AND GB. REPOSITIONED Q2H. Follow up: CONTINUE PLAN OF CARE; AWAITING GIRP PLACEMENT.
--- NOTE | 2017-03-25 04:58 | NUR ---
Significant events: Pt A/Ox3. VSS. Tramadol and dilaudid for pain to stump. R) stump dressing changed x1 this shift. Up 1PA with walker and gaitbelt. On RA this shift. Slept well this shift, cooperative with cares. Report given to DONOVAN this AM for possible transfer.
--- NOTE | 2017-03-25 15:51 | NUR ---
Significant Event: pt up halls with therapy and to bathroom 1 asst/walker. Pt does not like wear hardshell to knee. 02 room air. Ultram 1410, Dilaudid 1050.Pt family here with her. TPA to PICC machado and white ports. Dressing to AKA changed early am. Pt eats/drinks well. Good uop. Follow up:to rehab today
--- NOTE | 2017-03-25 16:45 | NUR ---
Several calls this a.m. with Priya on [facility] and she continues to work with Alana on [facility] for inpt rehab. She has faxed additional information today. Talked to patient and her parents this a.m. She is tearful and anxious about the move. Tried to assure her she will like the staff and therapist and the increased therapy will be good. She says she is just having a blue day. In the afternoon, Priya called and says [facility] has denied transfer to inpt rehab and are recommending SNF. Left [facility] for Dr. Ramirez to do peer to peer appeal. Did call all the SNFs in [place] and [facility], [facility] and [facility] do not have contract with [facility]. Ml at [facility] doesn't know if they have a contract or not and will try to find out. Talked to Dr. Ramirez and assist him with contacting [facility]. The [facility] physician will call Dr. Marks. Dr. Ramirez calls and says he has does the appeal and the [facility] physician has approved inpt. rehab. Called Priya and she will call her contact at [facility] to confirm. Priya calls back and says [facility] has approved transfer and want it to happen today. She says they can accept her today. Talked to patient, her parents and son and updated them. She is nervous but knows it is what she needs to do. She is glad insurance approved the transfer. Patient to transfer to [facility] today.
== END 2017-03-25 16:50 | DRG 268 ==
LOC: GMED 08:12 → GICU 10:51 → GPCU 10:51 → GICU 11:30 → GPCU 03-20 03:07
PROVIDERS: Anesthesiology; Emergency Medicine; Internal Medicine; Internal Medicine Critical Care Medicine; Internal Medicine Interventional Cardiology; Nurse Practitioner Acute Care; Nurse Practitioner Women's Health; Surgery Vascular Surgery; ADMIT Internal Medicine
PROC: 4A023N7 Measurement of Cardiac Sampling and Pressure, Left Heart, Percutaneous Approach (ICD-10-PCS; 2017-03-05)
PROC: B2111ZZ Fluoroscopy of Multiple Coronary Arteries using Low Osmolar Contrast (ICD-10-PCS; 2017-03-05)
PROC: 5A02210 Assistance with Cardiac Output using Balloon Pump, Continuous (ICD-10-PCS; 2017-03-05)
PROC: 02PA3RZ Removal of Short-term External Heart Assist System from Heart, Percutaneous Approach (ICD-10-PCS; principal; 2017-03-06)
PROC: 041M09S Bypass Right Popliteal Artery to Lower Extremity Vein with Autologous Venous Tissue, Open Approach (ICD-10-PCS; 2017-03-07)
PROC: 06BY0ZZ Excision of Lower Vein, Open Approach (ICD-10-PCS; 2017-03-07)
PROC: 06HY33Z Insertion of Infusion Device into Lower Vein, Percutaneous Approach (ICD-10-PCS; 2017-03-07)
PROC: 047M3ZZ Dilation of Right Popliteal Artery, Percutaneous Approach (ICD-10-PCS; 2017-03-07)
PROC: 04CM3ZZ Extirpation of Matter from Right Popliteal Artery, Percutaneous Approach (ICD-10-PCS; 2017-03-07)
PROC: 04U Lower Arteries, Supplement (ICD-10-PCS; 2017-03-07)
PROC: 0BH17EZ Insertion of Endotracheal Airway into Trachea, Via Natural or Artificial Opening (ICD-10-PCS; 2017-03-07)
PROC: 5A1955Z Respiratory Ventilation, Greater than 96 Consecutive Hours (ICD-10-PCS; 2017-03-07)
PROC: 30233N1 Transfusion of Nonautologous Red Blood Cells into Peripheral Vein, Percutaneous Approach (ICD-10-PCS; 2017-03-07)
PROC: 0KNS0ZZ Release Right Lower Leg Muscle, Open Approach (ICD-10-PCS; 2017-03-08)
PROC: 30233N1 Transfusion of Nonautologous Red Blood Cells into Peripheral Vein, Percutaneous Approach (ICD-10-PCS; 2017-03-10)
PROC: 30233N1 Transfusion of Nonautologous Red Blood Cells into Peripheral Vein, Percutaneous Approach (ICD-10-PCS; 2017-03-11)
PROC: 0W9930Z Drainage of Right Pleural Cavity with Drainage Device, Percutaneous Approach (ICD-10-PCS; 2017-03-15)
PROC: 0W9B30Z Drainage of Left Pleural Cavity with Drainage Device, Percutaneous Approach (ICD-10-PCS; 2017-03-15)
PROC: 02HV33Z Insertion of Infusion Device into Superior Vena Cava, Percutaneous Approach (ICD-10-PCS; 2017-03-16)
PROC: 0JDN0ZZ Extraction of Right Lower Leg Subcutaneous Tissue and Fascia, Open Approach (ICD-10-PCS; 2017-03-17)
PROC: 0Y6C0Z3 Detachment at Right Upper Leg, Low, Open Approach (ICD-10-PCS; 2017-03-18)
DX: I21.3 ST elevation (STEMI) myocardial infarction of unspecified site (principal); J96.01 Acute respiratory failure with hypoxia; R57.9 Shock, unspecified; J90 Pleural effusion, not elsewhere classified; J14 Pneumonia due to Hemophilus influenzae; E43 Unspecified severe protein-calorie malnutrition; I11.0 Hypertensive heart disease with heart failure; I74.3 Embolism and thrombosis of arteries of the lower extremities; I50.23 Acute on chronic systolic (congestive) heart failure; N17.9 Acute kidney failure, unspecified; A48.0 Gas gangrene; T79.A0XA Compartment syndrome, unspecified, initial encounter; D62 Acute posthemorrhagic anemia; E87.0 Hyperosmolality and hypernatremia; E87.3 Alkalosis; K56.7 Ileus, unspecified; I25.110 Atherosclerotic heart disease of native coronary artery with unstable angina pectoris; E78.5 Hyperlipidemia, unspecified; I99.8 Other disorder of circulatory system; I77.1 Stricture of artery; Z95.5 Presence of coronary angioplasty implant and graft; J44.9 Chronic obstructive pulmonary disease, unspecified; F17.210 Nicotine dependence, cigarettes, uncomplicated; I70.201 Unspecified atherosclerosis of native arteries of extremities, right leg; I27.2 Other secondary pulmonary hypertension; I25.2 Old myocardial infarction; Z86.73 Personal history of transient ischemic attack (TIA), and cerebral infarction without residual deficits; Z82.49 Family history of ischemic heart disease and other diseases of the circulatory system; Z83.3 Family history of diabetes mellitus; Z78.1 Physical restraint status; Z79.84 Long term (current) use of oral hypoglycemic drugs; E87.6 Hypokalemia; I25.5 Ischemic cardiomyopathy; E11.65 Type 2 diabetes mellitus with hyperglycemia; G54.6 Phantom limb syndrome with pain; R50.9 Fever, unspecified
CPT/HCPCS: A9270; C1751; C1757; J0171; J0690; J0696; J0883; J1120; J1170; J1250; J1644; J1756; J1940; J2001; J2250; J2270; J2370; J2405; J2543; J2550; J2704; J2720; J2760; J2997; J3010; J3370; J3480; J7030; J7040; J7050; J7060; J7120; P9016; P9045; P9047; Q9967

== ENCOUNTER → 2017-03-05 | Outpatient (CLI) | payer OTHER ==
[~2017-03-05] MED LIST: ASPIRIN325 MG PO; BENADRYL25 MG PO; BUMETANIDE2 MG PO; COLACE100 MG PO; CORDARONE,PACE200 MG PO; COREG6.25 MG PO; DILAUDID 4MG4 MG PO; DUONEB INH; GLUCOPHAGE1000 MG PO; K-TAB 10MEQ10 MEQ PO; LEVEMIR100 UNIT/1 SUB-Q; LEVOTHROID (SY50 MCG PO; LIPITOR80 MG PO; MEDROL4 M1 PO; MILK OF MA400 MG/5 M PO; MIRALAX17 GM PO; NEURONTIN300 MG PO; NICODERM / HABIT7 MG TRANS; NICORETTE4 MG PO; NORCO 5-325 TA1 EACH PO; NORVASC2.5 MG PO; NOVOLOG100 UNIT/M SUB-Q; PERCOCET 10-321 EACH PO; PLAVIX75 MG PO; PROTONIX40 MG PO; PROVENTIL OR V6.7 GM INH; TORADOL10 MG PO; TYLENOL325 MG PO; ULTRAM50 MG PO; XARELTO20 MG PO; ZIAC 10 MG10 MG PO
== END | disposition disaster alternative care site (69) ==
LOC: GAMB 07:35
DX: R07.9 Chest pain, unspecified (principal); E11.9 Type 2 diabetes mellitus without complications; I63.9 Cerebral infarction, unspecified; R11.2 Nausea with vomiting, unspecified; R06.4 Hyperventilation; Z95.5 Presence of coronary angioplasty implant and graft

== ENCOUNTER 2017-03-25 16:57 | Inpatient (IN) | payer OTHER ==
[~2017-03-25] VITALS: Ht 167.6 cm; Wt 68.8 kg
--- NOTE | ~2017-03-25 | CON ---
PATIENT'S NAME: CRISTIANA MOELLER [facility] AGE: 47 Y [address] ROOM: [id number] [place], [place] [address] LOCATION: [facility]P ADMIT DATE: 03/25/2017 Consultation DISCHARGE DATE: 04/01/2017 FAMILY PHYSICIAN: William Christensen MD ATTENDING PHYSICIAN: Elliott Bansal DATE OF CONSULTATION: 03/30/2017 REFERRING PHYSICIAN: Obdulio Kimbrough MD Team members reporting include: Dr. Bansal; Priya Scott, social group worker; Carolyn Mcdonald, RN; Vania Restrepo, PT; Tasneem Carlos, PT; Dee Garcia, OT; Ariana Blankenship, Speech Therapy; Elisha Viveros, therapeutic rec; and Sister Shira Casanova, Pastoral Care. CURRENT STATUS: Cristiana is a 47-year-old woman, admitted to our inpatient rehabilitation unit on 03/25/2017 following a right gleps-qhd-oslx amputation. The patient will need a coronary artery bypass graft in the future. She has a history of acute myocardial infarction, acute coronary syndrome, coronary artery disease, hypertension, hyperlipidemia, and acute kidney injury. The patient is on Dilaudid and Ultram for pain. She is on a consistent carbohydrate diet. She takes Dony b.i.d. Her prealbumin is 19. She can transfer sit to supine and supine to sit independently; sit to stand and stand to sit, contact guard assistance. Surface to surface, mod I. She can walk 150 feet with crutches at standby assistance. She can propel her wheelchair 600 feet at mod I. Her activity tolerance is poor. She is short of breath at times. She has met 2/8 long-term PT goals set at mod I. She can dress her upper and lower body independently. Grooming, independent; bathing, standby; toileting, mod I; and shower transfers, mod I. She can complete home management tasks at standby from a wheelchair level. Her long-term goals have been set for standby to mod I. The patient is open to pastoral care. DISCHARGE PLAN: The patient is receiving 3 hours of PT and OT Tuesday through Tuesday. The patient has daily rehabilitation, nursing, and physiatry involvement as well as therapeutic recreational services 4 days per week. The patient has shown functional improvement and is progressing. Please see her plan of care for specific goals. Plan is for patient to discharge on 04/01/2017. The patient plans to go home with outpatient therapy services. PRIYA SCOTT FOR ELLIOTT BANSAL MD PATIENT'S NAME: CRISTIANA MOELLER [facility] AGE: 47 Y [address] ROOM: [place] [address] LOCATION: [facility] ADMIT DATE: 03/25/2017 Consultation DISCHARGE DATE: 04/01/2017 FAMILY PHYSICIAN: William Christensen MD ATTENDING PHYSICIAN: Elliott Bansal TD/modl /[id number] d: 04/08/17 2349 t: 04/25/17 1411, CONSULTATION REPORT
--- NOTE | ~2017-03-25 | DS ---
PATIENT'S NAME: LONDON MOELLER [facility] AGE: 47 Y [address] ROOM: [place] [address] LOCATION: [facility] ADMIT DATE: 03/25/2017 Discharge Summary DISCHARGE DATE: FAMILY PHYSICIAN: William Christensen MD ATTENDING PHYSICIAN: Elliott Bansal [facility] COURSE: This 47-year-old lady was admitted to rehab unit at [facility] on 03/25/2017 for continuous medical treatment and intensive rehabilitation. 1. Unstable gait. 2. Dependent in activities of daily and self-care. 3. Status post right above-knee amputation secondary to end-stage ischemia of the right foot leg. She did well. She continues to make good progress. At the present time, she is alert and oriented. Vitals are as follows: Blood pressure 117/63 to 98/53, temperature 98.3, pulse 96, and respiratory rate is 18. She is able to ambulate 50 feet x2 with front-wheeled walker standby assistance. She is limited by distance. She gets short of breath and will get more so with increased distance. She is at the present time to continue outpatient PT/OT 3 times per week for the coming 4 weeks. Renewal with her family physician. No followup with me please. Follow up with Cardiology, Dr. Capo Kimbrough as he sees parag. Follow up with Dr. Monae as he sees parag. Must follow with her family physician as soon as possible. She is at the present time not to drive until she is re-evaluated. She is on the following medications: 1. Aspirin 81 mg p.o. daily. 2. Lipitor 80 mg daily. 3. Coreg 6.25 mg b.i.d. 4. Plavix 75 mg p.o. daily. 5. Neurontin 900 mg 3 times daily. 6. NovoLog insulin 5 units subcu 3 times daily. 7. Levemir 30 units subcu at bedtime. 8. NicoDerm 14 mg topical for 2 weeks and then 7 mg topical for 2 weeks and then discontinue. 9. Protonix 40 mg p.o. daily. PATIENT'S NAME: LONDON MOELLER [facility] AGE: 47 Y [address] ROOM: [place] [id number] LOCATION: [facility] ADMIT DATE: 03/25/2017 Discharge Summary DISCHARGE DATE: FAMILY PHYSICIAN: William Christensen MD ATTENDING PHYSICIAN: Elliott Bansal 10. Albuterol inhalation twice daily. 11. Tylenol 650 q.6 hours, do not exceed acetaminophen 4 g, 36 of them. 12. Benadryl 25 mg p.o. at bedtime as needed. 13. Colace 100 mg twice daily. 14. Dilaudid 4 mg p.o. q.4 hours, 36 of them, renewal per her family physician. 15. Ultram 50 mg p.o. q.6 hours as needed, 36 of them, renewal per her family physician. FINAL DIAGNOSES: 1. Unstable gait. 2. Dependent in activities of daily and self-care. 3. Status post right above-knee amputation. 4. Diabetes type 2. 5. Peripheral vascular disease. 6. Congestive heart failure with coronary artery disease, might undergo CABG in a few weeks. 7. Hypertension. 8. Reflux gastric disease. 9. Tobacco use per history. The patient is not to drive and/or operate any mechanical device until she is re-evaluated. She must follow with her family physician as soon as possible. All the above was explained to her in detail. She verbalized understanding and agreement. ELLIOTT BANSAL MD WMS/modl /[id number] d: 04/01/17 0223 t: 04/01/17 0759, DISCHARGE SUMMARY
--- NOTE | ~2017-03-25 | HP ---
PATIENT'S NAME: LONDON MOELLER [facility] AGE: 47 Y [address] ROOM: [address] [address] LOCATION: [facility] ADMIT DATE: 03/25/2017 History & Physical DISCHARGE DATE: FAMILY PHYSICIAN: GENA CHRISTENSEN MD ATTENDING PHYSICIAN: Elliott Bansal DATE OF SERVICE: HISTORY OF PRESENT ILLNESS: This 47-year-old lady is admitted for continuous medical treatment and intensive rehabilitation to Rehabilitation Unit at [facility] on 03/25/2017. 1. Unstable gait. 2. Dependent activities of daily and self-care at high risk of falling. 3. Status post right above-knee amputation leading to unstable gait and dependent activities of daily and self-care at high risk of falling. 4. She did undergo on 03/18/2017 a right above-knee amputation for nonviable right lower extremity secondary to ischemia, details on record. At the present time, she is alert and oriented. Vitals are as follows; blood pressure 135/60, temperature 98.1, pulse 85, and respiratory rate 16. She is 5 feet 4 inches tall and weighs 80.1 kg. ALLERGIES: POSSIBLY TO CODEINE. CURRENT MEDICATIONS: She is on the following medications: 1. Aspirin 81 mg p.o. daily. 2. Lipitor 80 mg p.o. daily. 3. Coreg 6.25 mg p.o. b.i.d. 4. Plavix 75 mg p.o. daily. 5. Neurontin 900 mg 3 times daily. 6. Levemir 25 mg subcutaneous every night at bedtime. 7. NovoLog insulin aggressive scale per protocol. 8. Lopressor 12.5 mg p.o. daily. 9. NicoDerm 21 mg daily. 10. Protonix 40 mg p.o. daily. 11. Neutra-Phos 1 each foot twice daily. 12. Micro-K 40 mEq p.o. q.8 hours. 13. Albuterol sulfate 1 each inhalation every 6 hours per RT. 14. Tylenol 650 q.6 hours, do not exceed acetaminophen 4 g q.24 hours. 15. Dulcolax suppository 10 mg rectally q.8 hours p.r.n. 16. Dextrose 50%, give 25 mL IV for hypoglycemia p.r.n. 17. Benadryl 25 mg at bedtime as needed p.r.n. 18. Colace 100 mg p.o. b.i.d. as needed. PATIENT'S NAME: LONDON MOELLER [facility] AGE: 47 Y [address] ROOM: [address] [address] LOCATION: [facility] ADMIT DATE: 03/25/2017 History & Physical DISCHARGE DATE: FAMILY PHYSICIAN: GENA CHRISTENSEN MD ATTENDING PHYSICIAN: Elliott Bansal 19. Glucagon 1 mg subcutaneous for hypoglycemia p.r.n. 20. Glucose 16 g p.o. for hypoglycemia p.r.n. 21. Dilaudid 4 mg every 4 hours p.r.n. for pain. 22. Narcan 0.2 mg IV for pain p.r.n. 23. Nitrostat 0.4 mg subcutaneous sublingually p.r.n. 24. Zofran 4 mg IV q.6 hours as needed. 25. [place] nasal spray as needed through the nostril. 26. Ultram 50 mg q.6 hours. PAST MEDICAL HISTORY: History of followin. History of diabetes, type 2 and at the present time, on insulin. 2. Tobacco use. 3. Dyslipidemia. 4. Status post coronary artery disease. She might undergo CABG down the line in 2 weeks or so. 5. Status post right above-knee amputation for nonviable lower extremity. 6. Reflux esophagitis. ASSESSMENT AND PLAN: 1. We will put on intensive PT, OT, 3 hours per day, 15 hours per week for the coming 2 weeks or so, aiming to discharge home with modified independence, and possibly she might go from here to have a coronary artery bypass graft surgery. 2. We will keep her on ADA, 1800-calorie, regular consistency diet. 3. We will keep on hospitalist or Dr. Gena Christensen to follow as necessary and Dr. Bonilla to follow as necessary also. 4. On 03/26, her CBC was as follows: WBCs 9.4, RBCs 2.88, hemoglobin 8.7, hematocrit 27.8, and platelets of 659,000. 5. CMS; sodium 136, potassium 3.9, chloride 102, CO2 of 27, BUN 12, creatinine 0.6, and glucose 190. UA, not received yet. 6. Prealbumin 19.0. 7. She could ambulate with front-wheeled walker and close supervision; for about 26 feet x2. We will encourage to lay on the stomach to prevent contracture of the right hip. 8. She will achieve her stated goals in about 2 weeks and then we will see if she will be a candidate for coronary artery bypass graft. All the above was explained to her in detail. She verbalized understanding and agreement. ELLIOTT BANSAL MD PATIENT'S NAME: LONDON MOELLER [facility] AGE: 47 Y [address] ROOM: [place] [address] LOCATION: [facility] ADMIT DATE: 03/25/2017 History & Physical DISCHARGE DATE: FAMILY PHYSICIAN: GENA CHRISTENSEN MD ATTENDING PHYSICIAN: Elliott Bansal/modl /[id number] D: [id number] T: [id number] HISTORY & PHYSICAL
[~2017-03-25 16:57] MED LIST changes: -ASPIRIN325 MG PO; -BENADRYL25 MG PO; -BUMETANIDE2 MG PO; -COLACE100 MG PO; -CORDARONE,PACE200 MG PO; -COREG6.25 MG PO; -DILAUDID 4MG4 MG PO; -DUONEB INH; -K-TAB 10MEQ10 MEQ PO; -LEVEMIR100 UNIT/1 SUB-Q; -LEVOTHROID (SY50 MCG PO; -LIPITOR80 MG PO; -MILK OF MA400 MG/5 M PO; -MIRALAX17 GM PO; -NEURONTIN300 MG PO; -NICODERM / HABIT7 MG TRANS; -NICORETTE4 MG PO; -NORCO 5-325 TA1 EACH PO; -NORVASC2.5 MG PO; -NOVOLOG100 UNIT/M SUB-Q; -PLAVIX75 MG PO; -PROTONIX40 MG PO; -PROVENTIL OR V6.7 GM INH; -TYLENOL325 MG PO; -ULTRAM50 MG PO; -XARELTO20 MG PO
--- NOTE | 2017-03-25 19:09 | NUR ---
PATIENT ADMITTED TO [facility] AT 1700. ALERT AND ORIENTED X3. UP 1 ASSIST, WALKER, GAIT BELT. RIGHT STUMP SITE STAPLED, NEW ORDER TO HAVE KERLIX AND GAUZE WRAPPED ON IT TO KEEP IT DRY, CHANGE QDAY. PICC TO RIGHT UPPER ARM, TRIPLE LUMEN, ALL FLUSH WELL WITH GOOD BLOOD RETURN. CONTINENT OF BOWEL AND BLADDER. VITALS STABLE ON ROOM AIR. ACHS ACCUCHECK, WAS 298 WHEN SHE ARRIVED, 10 UNITS OF NOVOLIN GIVEN. DILAUDID AND ULTRAM FOR PAIN. NICOTINE PATCH TO RIGHT UPPER ARM. RIGHT GROIN SITE HEALING FROM BALLOON PUMP. LEFT CHEST TUBE SITE OPEN TO AIR, HEALING AND SCABBED. RIGHT CHEST TUBE SITE HAS [address], SITE SCABBED. REPORTED THAT SHE HAD BEEN WEARING O2 AT NIGHT ON OTHER FLOOR, SATS ABOVE 90% ON ROOM AIR SINCE ARRIVING TO [facility]. FAMILY AT BEDSIDE SUPPORTIVE.
--- NOTE | 2017-03-26 03:09 | NUR ---
Significant Event: Patient is alert and oriented, VSS. Up one assist with GB/Walker. AKA of right leg. Dressing change daily with gauze and Kerlix. Patient has multiple incisions to her right stump and into her groin. Marah intact. Has a compression stocking to wear that attaches around the waist. Also has a stump protector. Chest tube sites opened to air, right and left ribs, right has a suture. Triple Lumen to her right upper arm. All flush wel with good blood return. Labs draw today. HX of smoking and has a Nicotin patch to her right shoulder. Has pain to her stump for which she gets Dilaudid and Ultram. present most of the time, attentive to her needs. Accu checks AC&HS last night was 110. No SSI needed get schedule Kar. Last BM 03/25/17. Follow up: Patient here for strengthening plans for a CABG.
[2017-03-26 05:32] LABS: ALBUMIN 2.6 gm/dL (3.5-5.0); ALK PHOS 112 IU/L (33-138); ALT 26 IU/L (12-78); ANION GAP 10.9 (10.0-19.0); AST 18 IU/L (10-40); BLOOD UREA NITROGEN 12 mg/dL (6-24); CALCIUM 8.9 mg/dL (8.5-10.5); CHLORIDE 102 mMol/L (96-110); CO2 27 mMol/L (22-32); CREATININE 0.6 mg/dL (0.5-1.1); ESTIMATED GFR (MDRD EQUATION) > 60; POTASSIUM 3.9 mMol/L (3.7-5.1); SODIUM 136 mMol/L (135-145); TOTAL BILIRUBIN 0.5 mg/dL (0.0-1.5); TOTAL PROTEIN 7.7 g/dL (6.0-8.4)
[2017-03-26 05:36] LABS: BASOPHIL # 0.1 K/uL (0.0-0.2); BASOPHIL % 1.5 %; EOSINOPHIL # 0.2 K/uL (0.0-0.5); EOSINOPHIL % 2.1 %; HEMATOCRIT 27.8 % (33.0-46.0); HEMOGLOBIN 8.7 g/dL (10.0-15.0); IMMATURE GRANULOCYTE # 0.1 K/uL (0.0-0.3); IMMATURE GRANULOCYTE % 0.5 %; LYMPHOCYTE # 2.8 K/uL (0.8-4.0); LYMPHOCYTE % 29.3 %; MCH 30.2 pg (27.0-34.0); MCHC 31.3 gm/dL (32.0-36.5); MCV 96.5 fl (83.0-98.0); MONOCYTE # 0.8 K/uL (0.0-1.0); MONOCYTE % 8.5 %; MPV 8.8 fl (9.4-12.4); NEUTROPHIL # (ANC) 5.5 K/uL (1.8-7.8); NEUTROPHIL % 58.1 %; NRBC % 0 /100WBC (0-0.00); PLATELET COUNT 659 K/uL (150-450); RBC 2.88 M/uL (3.50-5.50); RDW-CV 15.7 % (11.9-14.6); WBC 9.4 K/uL (4.0-11.0)
--- NOTE | 2017-03-26 14:40 | NUR ---
Significant Event: Alert and oriented x 3. Up with 1A walker and gait belt. Dilaudid at 1401. Ultram at 1042. Accuchecks ACHS. 182 and 358 this shift. 15 Units given for 358. Dressing to stump changed. Gauze and Kerlix. Marah intact. Triple lumen to right upper arm. Nicotine patch to left shoulder. Last BM 04/24. Cooperative with cares. Follow up:
--- NOTE | 2017-03-27 03:22 | NUR ---
Significant Event: Alert and oriented, VSS. Up 1 assist with GB/Walker but she did not have her walker last night so transfered into her w/c to the bathroom. Pushes call light then gets up w/o waiting for nursing to help her get in and out of the bathroom by herself. PICC to upper left arm flushes well with with good blood return. Right stump with dressing intact. Accu checks AC&HS last night was 282. Nicotine patch to her left upper arm. Has dilaudid and Ultram for pain. Ultram last given at 0016. Follow up:
--- NOTE | 2017-03-27 13:25 | NUR ---
Significant Event: Alert and oriented x 3. Up with 1A walker and gait belt. Patient is ok to transfer self when going to bathroom per OT. Dressing to stump changed this morning. PICC to upper left arm. Accuchecks ACHS. 172 and 169 this shift. Dilaudid given at 1052 and ultram given at 0852. Nicotine patch to right upper arm. Cooperative with cares. Follow up:
--- NOTE | 2017-03-28 02:44 | NUR ---
Significant Event: Patient is alert and oriented, VSS. Up MOD I to the bathroom with W/C. Needs assist of nursing to be up in room and halls with GB/Walker. Dressing changes to right stump, Betadine then gauze and Kerlix. Dressing replaced last evening. Triple lumen PICC to right upper arm with good blood return. Accu checks AC&HS last night 283 received 6 units of Novolog. Nicotine patch to upper right arm. Ultram given at 0200 wants a Dilaudid at 0500 this morning before she gets up. Follow up:
--- NOTE | 2017-03-28 08:33 | NUR ---
Diabetes consult: Patient with blood sugars running in the 200's after prior to meals. Prandial dose of 5 units was added on 03/26, with improvement noted to pre-lunch values. Fasting blood sugars range from 150-182 over the last couple of days. The patient is averaging 2-6 units of moderate correction with each blood glucose check. Recommend increasing Prandial dose to 8 units with meals. Nursing staff informed of the above. Hospitalist to round.
--- NOTE | 2017-03-28 09:26 | NUR ---
D: Therapeutic Recreation Initial Assessment on the 03/28/17. I: Patient seen for 2 units 930 to begin initial evaluation. Pt had dx of AKA and cardiac issues. R: [place] 4 Living with: family Spouses name: Magdiel # of children: 2 Driving: yes, spouse does drive (SUV, pickup) Ambulating: I Equipment: N/A Hand Dominance: Right Front Services Agent strength: no problem Eye sight: glasses Reading ability: reports no problem Hearing: no problem Speech: clear Cognition: alert Comprehension: good Following directions: yes Initiating: yes Eye contact: good Affect: bland COMMUNITY INVOLVEMENT: out to eat, Library, grocery shopping, movies, car ride, Malls LEISURE INTERESTS: some fishing, read (anything) some TV, listen to music, loves horse back riding, word puzzles, computer but doesn't use much, cards Patient is referred by medical staff for treatment and evaluation in the following areas: Community Skills, Functional Leisure Skills, Participation, Leisure Education/Behaviors, Family Education, Cognitive, Emotional. Information obtained: Interview, Chart Review, Observation, other. BARRIERS TO LEISURE: Financial, Physical, Lifestyle (pack a day) Patient determined to be: APPROPRIATE FOR THERAPEUTIC RECREATION ASSESSMENT. TREATMENT WILL INCLUDE: Community living skills training Functional leisure development Physical skills development Leisure education Emotional/behavioral adaptation Family education Community resources/packet TARGET EQUIPMENT/INFORMATION: Parking Permit will need Community Resources Energy conservation in community setting Van/Service/Taxi Scrip Adapted Leisure Equipment Stress management/Relaxation techniques Functional car transfers Leisure Education Behaviors: Attitude, Awareness, Participation. Patient functional skills level and potential: Good, pt demonstrates fair mobility with concerns coping with major lifestyle change. Patient oriented ot TR services on Rehab unit. Pt/family provided input into goals setting and plan of care. Pt's goal is to be independent with mobility, return home and resume horse by riding. P: Target date set with personal goals established. Will continue with POC focusing on pt/family training and education. For additional information please see Nursing Data Base, PT, OT, CM, initial assessments to [facility] and Interdisciplinary Assessments.
--- NOTE | 2017-03-28 12:24 | NUR ---
Significant Event: PATIENT UP 1 ASSIST, WALKER, GAIT BELT. MOD I TO BATHROOM. ALERT AND ORIENTED X3. DILAUDID AND ULTRAM PRN FOR PAIN. DRESSING CHANGED TO RIGHT STUMP SITE, GAUZE FLUFF, KERLIX, BETADINE. PATIENT OFTEN REFUSES STUMP GUARD. SMALL AMOUNT OF DRAINAGE FROM MIDDLE PORTION OF INCISION. SYBIL INTACT. PICC TO RIGHT UPPER ARM. NICOTINE PATCH TO LEFT ARM. ACHS ACCUCHECKS, RECEIVES SLIDING SCALE, SCHEDULED NOVOLOG WITH EACH MEAL, AND LEVEMIR AT NIGHT. CONTINENT OF BOWEL AND BLADDER. Follow up:
--- NOTE | 2017-03-29 03:10 | NUR ---
Significant Event: A/O X 3. UP MOD I TO BR WITH WH/CHAIR. DRSGS RT STUMP INTACT. TRIPLE LUMEN PICC INTACT TO RIGHT UPPER ARM. ACCUCHECKS AC & HS. AT HS ACCUCHECK WAS 214, GOTTEN NOVOLOG 4 UNITS SUB-Q AND LEVEMIR 30 UNITS. NICOTINE PATCH TO LEFT UPPER ARM. GIVEN ULTRAM 50MG AT 0317 FOR PAIN -BURNING TO RIGHT STUMP. HAD DILAUDID 4MG TAB AT 2221, PAIN RATE AT 8, LATER A 5. NO BLOOD RETURN FROM RIGHT UPPER ARM PICC BY AMPARO ROBLEDO. SATS ABOVE 90%, REFUSED OXYGEN. CONTINENT OF BOWEL AND BLADDER. POSSIBLE TO GO HOME TUESDAY. Follow up:
--- NOTE | 2017-03-29 14:19 | NUR ---
Significant Event: Alert and oriented x 3. Up to BR mod I. Dilaudid given x 2 this shift for pain. Accuchecks ACHS. 150 and 203 this shift. Nicotine patch to right upper arm. Dressing to stump changed. [place] intact. PICC to right upper arm. Continent of bowel and bladder. Cooperative with cares. Follow up:
--- NOTE | 2017-03-30 03:08 | NUR ---
Significant Event: Patient is alert and oriented. B/P runs low at times. Up mod I to the bathroom. Needs GB/Walker 1 assist when up. Takes meds whole with water. Nicotine patch to her right arm. BM yesterday patient has c/o of hard stools may need a laxative took a Colace yesterday. Rates pain ost of the time 05/05 has Dilaudid and Ultrm for pain. Dressing changes daily, has some serous sang drainage. Wears a stump commercial loan administrator. Triple Lumen PICC to her upper right arm flushes hard and has blood return. Accu checks AC&HS last night was 282. Follow up: Home Tuesday?
--- NOTE | 2017-03-30 12:56 | NUR ---
A-SCREENED D/T LOS; NEW ADMIT TO [facility] S/P R)ALIS HT: 66 IN. WT: (STANDING SCALE): 68.8 KG. ADMIT WT: 70.4 KG. LABS: NA 136, K+ 3.9, GLU 190, BUN 12, TOP CUTTER 0.6, ALB 2.6, PREALB 19.0 DIET RX: CONSISTENT CARB W/ISABELLE BID. PO INTAKE 25-100%; AVG IS 70%. PT IS TAKING ISABELLE WELL; DOES NOT LIKE ENSURE. EST NUTR NEEDS: 0189-2844 KCALS (28-32 KCALS/KG) 69-103 GM PROTEIN (1.0-1.5 GM/KG) 1 ML FLUID/KCAL D-AT NUTRITION RISK W/INCREASED NUTR. NEEDS R/T ALTERED SKIN INTEGRITY AEB R)ALIS I-CONTINUE W/ISABELLE BID M/E-GOAL: PO INTAKE >/=75% BY NEXT F/U 1)F/U PO INTAKE, SUPPLEMENT, WT, LABS, AND POC IN 5-6 DAYS 2)ASSIST NEEDED
--- NOTE | 2017-03-30 15:52 | NUR ---
Significant Event: Pt up in room to w/c and toilet mod I. Nai. well. Dressing changed x 2, r/t falling off. Moderate amt of drg on dressing this am upon shift change. [place] intact to stump and other incisions healing well. Dilaudid 4mg x 3 last at 1353, ultram at 0830. Tylenol with lunch. Accuchecks 142,133. 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 Pt pleasant and cooperative with cares. nicotine patch to shoulder. Follow up: plan for discharge this Fri, pain management, wound cares
--- NOTE | 2017-03-31 02:36 | NUR ---
Significant Event: Patient is alert and oriented, B/P have been running low 103/53, 98/58. Up 1 assist with GB/Walker, Mod I to BR in W/C. Rates pain to her right stump 05/05 Dilaudid and Ultram for pain. Last Dilaudid was at 0142, Ultram at 1945. Sressing to stump changed last night had fallen off. Continues to have serous sang drainage. Has a stump quality lead she is to wear as much as possible. She is also to lay on her stomach a couple times daily. is here alot and assist with her needs. Triple Lumen PICC patent to her right upper arm flushes hard but does have blood return. Was given MOM last night with results. Patient c/o her stools are marble like. Accu checks AC&HS last night 177. Follow up: FIM shower this AM, DC Tuesday.
--- NOTE | 2017-03-31 14:14 | NUR ---
D: TR progress note for 03/31/17. I: Pt seen for 2 units at 1234 for community integration skills building, functional transfers, and safety awareness. R: Pt seen for functional skills building working on mobility, safety, functional transfers and community skills in anticipation for discharge back into community. Pt given verbal instructions on proper technique for car transfers to maintain safety. Pt transferred sit > stand from WC SBA, pivoted to/from vehicle SBA using door for support and transferred in/out of vehicle SBA. Pt was SBA for LE management and positioning of self with cues for safety given. Pt tolerated ride with only slightly increase in C/o pain. P: Will continue to see to address goals and plan of care.
--- NOTE | 2017-03-31 16:27 | NUR ---
Significant Event:Pt alert and orientated x 3, verbalizes needs well. Up in w/c mod. I, tolerates well. Dressings to stumpff changed this am as ordered. artur intact to stump, and other incision healing. Left side chest tube stie pt was sure 1 stitch was still in, did not visualize any, had Shannan Mcnulty come and check and she confirmed there is no sticth in site, checked all sites to make sure, small scabs still on sites. Pt requests pain meds Dilaudid 4 mg, and Ultram for pain note MAR. Accuchecks AC/HS sliding scale and scheduled, all WNL so far this shift. Pt has used her machining manager when she is @ therapy, usually takes off a short while after returned to the unit. Nicotine patch changed this am after therapy gave her shower. Pt pleasant and cooperative with cares. Orders started for discharge tomorrow, wants to leave early in am, to come @ 0915. Follow up:discharge planned for 04/01, pain control, nicotine patch.
--- NOTE | 2017-04-01 04:06 | NUR ---
A&0. Cooperative. VSS. Afebrile. Transfers independently to . Dressing to stump changed. [place] intact, edges well approximated. Triple lumen PICC in upper right arm. All flush well. Dilaudid Q4H PRN given x 1 this shift. Accuchecks JAUN, 253 at HS. Continue plan of care, discharge this morning.
[2017-04-01] MEDS ORDERED: ASPIRIN325 MG PO (09:12)
[2017-04-01] MEDS ORDERED: LIPITOR80 MG PO (09:12)
[2017-04-01] MEDS ORDERED: COREG6.25 MG PO (09:13)
[2017-04-01] MEDS ORDERED: PLAVIX75 MG PO (09:13)
[2017-04-01] MEDS ORDERED: NEURONTIN300 MG PO (09:15)
[2017-04-01] MEDS ORDERED: NOVOLOG100 UNIT/M SUB-Q (09:21)
[2017-04-01] MEDS ORDERED: LEVEMIR100 UNIT/1 SUB-Q (09:23)
[2017-04-01] MEDS ORDERED: NICODERM / HABIT7 MG TRANS ×2 (09:27→09:28)
[2017-04-01] MEDS ORDERED: PROTONIX40 MG PO (09:28)
[2017-04-01] MEDS ORDERED: DUONEB INH (09:31)
[2017-04-01] MEDS ORDERED: TYLENOL325 MG PO (09:46)
[2017-04-01] MEDS ORDERED: BENADRYL25 MG PO (09:47)
[2017-04-01] MEDS ORDERED: COLACE100 MG PO (09:48)
[2017-04-01] MEDS ORDERED: DILAUDID 4MG4 MG PO (09:50)
[2017-04-01] MEDS ORDERED: MILK OF MA400 MG/5 M PO (09:51)
[2017-04-01] MEDS ORDERED: ULTRAM50 MG PO (09:52)
--- NOTE | 2017-04-01 14:26 | NUR ---
Significant Event:PT HAPPY SHE IS GOING HOME TODAY. STARTED ORGANIZING HER STUFF BEFORE BREAKFAST, DRESSED. 0900 PICC LINE DISCONTINUED PER MD ORDERS, INSTRUCTED PT TO LEAVE DRESSING ON FOR 24 HOURS, AND TEACHING DONE ON WATCHING SITE, AND IF ANY CONCERNS CALL MD, ALSO IF STARTS TO BLEED TO APPLY PRESSURE LIKE WHEN REMOVED AND CALL MD. HERE APPROX. 0915. REVIEWED DISCAHRGE INSTRUCTIONS WITH BOTH, PRESCRIPTIONS, AND MD FOLLOW UP VISITS. TOOK POSSESION TO VEHICLE, ALSO ASKED SINCE FIRST TIME UP IN HIS TOOL REPAIR TECHNICIAN, IF OT COULD HELP HER IN TO MAKE SURE THEY DID IT CORRECT. OT DID GO OUT WITH PT WHEN DISCHARGED @ 0940 REQUESTED. NOTE MAR FOR PAIN MEDS GIVEN FOR ANITICIPATED PAIN FOR TRIP HOME. PT ANXIOUS TO GO, GOOD SUPPORT. DISCHARGE PAPER WORK SIGNED, TEACHING DONE. PT TAKEN TO VEHICLE @ 0940 PER WHEEL CHAIR, HER EQUIP HAD BEEN DELIVERED SHORTLY BEFORE DISCHARGE WHICH SHE TOOK WITH HER. HAD BEEN GIVEN DEMONSTRATION BY DELIVERLY PERSON ON HOW TO OPERATE EQUIPMENT. PT DISCHARGED TO CARE OF @ 0940 Follow up:DISCHARGE.
--- NOTE | 2017-04-01 14:34 | NUR ---
[facility] Case Management Prefunctioning and Psycho-Social Initial Assessment for 03/25/17, Case Conference Note for 03/30/17 and Discharge Note for 04/01/17 D: Initial Allergy And Immunology SpecialistWebmethods Consultant, Case Conference Note, Discharge Note. I: Input from: patient, family, Dr. Schuler, Priya Scott [facility] R: Reason for admission: chest pain with shortness of breath--needs to have CABG soon. Right above the knee amputation. Admission Date to [facility]: 03/25/17 Admission Date to Hospital: 03/11/17 Prior level of functioning: patient was independent with adl's and household prior to amputation. Prior living situation: 4 steps with 1 rail. Financial resources/expectations: patient has [employer]. Insurance approved. Resources used: none. Resources available: HHC, outpatient therapy, SNF, [facility]TER, Rodney, CASSIE. Family support available: family/ Understands nature of health condition: yes Recognizes impact of health condition on lifestyle: yes Vocational/Educational: homemaker Behavior/Emotional needs: cues for safety. Monitor for signs and symptoms of depression and anxiety. Legal concerns: none Discharge goal: home with support Assessment: Cristiana is a 47 year old woman from [place], [place] admitted after an amputation. She has good family support. Plan is for patient to d/c on 04/01/17 with outpatient therapy. Patient received wheelchair and walker prior to d/c. built ramp and remodeled bathroom. No other needs identified. Will call patient next week to see how she is doing post discharge. Orientation to the program and CM services completed with Cristiana. Initial plan of care and estimated length of stay discussed, disclosure statement reviewed including patient assessment rights. P: Target date and individual goals established. Please see POC for details. For additional information please see Nursing Data Base, PT, OT, TR, Initial assessments to [facility].
== END 2017-04-01 10:40 | disposition disaster alternative care site (69) | DRG 561 ==
LOC: GIRP 16:57
PROVIDERS: ADMIT Physical Medicine & Rehabilitation
DX: Z47.81 Encounter for orthopedic aftercare following surgical amputation (principal); Z89.611 Acquired absence of right leg above knee; E11.65 Type 2 diabetes mellitus with hyperglycemia; R26.89 Other abnormalities of gait and mobility; Z98.890 Other specified postprocedural states; E78.5 Hyperlipidemia, unspecified; I25.10 Atherosclerotic heart disease of native coronary artery without angina pectoris; F17.210 Nicotine dependence, cigarettes, uncomplicated; K21.0 Gastro-esophageal reflux disease with esophagitis; I10 Essential (primary) hypertension; I73.9 Peripheral vascular disease, unspecified; Z87.891 Personal history of nicotine dependence; Z95.1 Presence of aortocoronary bypass graft
CPT/HCPCS: A9270; J2997

== ENCOUNTER 2017-04-09 11:36 | Emergency (ER) | payer OTHER ==
--- NOTE | ~2017-04-09 | ER ---
PATIENT'S NAME: SUNNI [facility] AGE: 47 Y [address] ROOM: [place] [id number] LOCATION: [facility] ADMIT DATE: 04/09/2017 ER/Outpatient Report DISCHARGE DATE: 04/09/2017 FAMILY PHYSICIAN: William Christensen MD ATTENDING PHYSICIAN: Johnathon Araiza Time of Patient's Arrival: 1135 hours. Time of Patient's Evaluation: 1150 hours. CHIEF COMPLAINT: Left lower extremity ankle swelling. HISTORY OF PRESENT ILLNESS: This is a 47-year-old female who presents to the ER, who states that she has noticed a little bit of left ankle and foot swelling for the past 3 days. The patient states that she has had no pain in the leg, no redness, no fevers. The patient states that she just noticed after she took her sock off last evening that there was a little bit of an indentation there. She states that today she does not notice any swelling. They are concerned because she just had her right leg amputated above her knee a couple of weeks ago. She states that she has had no significant or abnormal drainage from that area. She states that she has had no shortness of breath, no new cough. She states she is due to see her adjunct history instructor in a couple of weeks. ALLERGIES: CODEINE. MEDICATIONS: Please see medication list in nurse's notes. PAST MEDICAL HISTORY: 1. Insulin-dependent diabetic. 2. Coronary artery disease. 3. Diabetes. 4. Hypertension. 5. Hyperlipidemia. 6. Prior tobacco dependence. PAST SURGERIES: A recent amputation of right lower leg, [id number]. SOCIAL HISTORY: She quit smoking 1 month ago. REVIEW OF SYSTEMS: PATIENT'S NAME: SUNNI [facility] AGE: 47 Y [address] ROOM: [place], [place] [address] LOCATION: [facility] ADMIT DATE: 04/09/2017 ER/Outpatient Report DISCHARGE DATE: 04/09/2017 FAMILY PHYSICIAN: William Christensen MD ATTENDING PHYSICIAN: Johnathon Araiza All systems were reviewed and were negative with the exception of those discussed in the HPI. PHYSICAL EXAMINATION: VITAL SIGNS: Height 5 feet 5 inches stated, weight 147 pounds, blood pressure is 138/77, pulse 84, respirations 16, temperature 98 degrees tympanically, and saturations 96% on room air. Corrine Coma Score is 15. GENERAL: Alert, calm, well-developed female, in no acute distress. HEENT: Head: Normocephalic. Eyes: Pupils are equal and reactive to light. She does display moist mucous membranes. LUNGS: Clear to auscultation bilaterally. HEART: Regular rate and rhythm. EXTREMITIES: She does have an incision closed with artur to her right stump. There is no active drainage noted at this time. I do palpate around the area, she states that it is not particularly any more tender than it normally is. Left lower extremity: I do not appreciate any edema noted to the lower extremities. She has good pedal pulse. There is no erythema to the skin. She has a negative Homans sign. She has no pain with palpation to the thigh. LABORATORY DATA AND X-RAYS: None were done. IMPRESSION: Mild left lower leg swelling. ASSESSMENT/PLAN: We will dismiss the patient to home with a prescription for medical grade compression stocking to the left lower extremity. She needs to continue doing her exercises with the leg. She needs to continue her home medications, and she should follow up with her primary care physician on Tuesday if it is not improving. The patient and the patient's understand and agree with care. MELITON MURRIETA PA-C FOR MD LUIS F MCKEON/reggie /[id number] d: 04/09/17 2259 t: 04/12/17 0614, OUTPATIENT REPORT
[~2017-04-09 11:36] MED LIST changes: +ASPIRIN325 MG PO; +BENADRYL25 MG PO; +COLACE100 MG PO; +COREG6.25 MG PO; +DILAUDID 4MG4 MG PO; +DUONEB INH; +LEVEMIR100 UNIT/1 SUB-Q; +LIPITOR80 MG PO; +MILK OF MA400 MG/5 M PO; +NEURONTIN300 MG PO; +NICODERM / HABIT7 MG TRANS; +NOVOLOG100 UNIT/M SUB-Q; +PLAVIX75 MG PO; +PROTONIX40 MG PO; +TYLENOL325 MG PO; +ULTRAM50 MG PO
== END 2017-04-09 12:01 | disposition disaster alternative care site (69) ==
LOC: GMED 11:36
DX: M79.89 Other specified soft tissue disorders (principal); I25.10 Atherosclerotic heart disease of native coronary artery without angina pectoris; E11.9 Type 2 diabetes mellitus without complications; I10 Essential (primary) hypertension; E78.5 Hyperlipidemia, unspecified; Z87.891 Personal history of nicotine dependence; Z88.5 Allergy status to narcotic agent; Z89.611 Acquired absence of right leg above knee

== ENCOUNTER → 2017-04-28 | Outpatient (CLI) | payer OTHER ==
[~2017-04-28] MED LIST changes: +BUMETANIDE2 MG PO; +CORDARONE,PACE200 MG PO; +K-TAB 10MEQ10 MEQ PO; +LEVOTHROID (SY50 MCG PO; +MIRALAX17 GM PO; +NICORETTE4 MG PO; +NORCO 5-325 TA1 EACH PO; +NORVASC2.5 MG PO; +PROVENTIL OR V6.7 GM INH; +XARELTO20 MG PO
[2017-04-28 17:18] LABS: ALBUMIN 3.2 gm/dL (3.5-5.0); ANION GAP 11.3 (10.0-19.0); CALCIUM 9.1 mg/dL (8.5-10.5); CREATININE 0.8 mg/dL (0.5-1.1); PHOSPHORUS 3.7 mg/dL (2.5-4.9); POTASSIUM 3.3 mMol/L (3.7-5.1)
== END | disposition disaster alternative care site (69) ==
LOC: LNHI 16:47
PROVIDERS: Internal Medicine Interventional Cardiology
DX: I25.10 Atherosclerotic heart disease of native coronary artery without angina pectoris (principal)

== ENCOUNTER 2017-05-31 09:59 | Inpatient (IN) | payer OTHER ==
[~2017-05-31] VITALS: Ht 162.6 cm; Wt 69.1 kg
--- NOTE | ~2017-05-31 | ENPV ---
Vascular Lower Extremity Vein Mapping and Lower Extremities DVT Study Procedure Demographics Patient Name LONDON MOELLER Date of Study 05/31/2017 Patient Number [id number] Gender Female Date of 1970 Age 47 Visit Number [id number] Height Accession Number [id number] Weight Room Number G6201 BSA BMI Referring Dov Marsh Interpreting Chad Le MD Physician DO Physician Amparo Campbell MD Physician Ordering Physician Dov Marsh DO Hr Clerk Ice Cream Scooper Jun Bernard, RVT Conclusions Summary No evidence of deep vein thrombosis or superficial thrombus in the left lower extremity. The left greater saphenous vein is patent, see chart for measurements. Procedure Type of Study: Veins:Lower Extremity Vein Mapping, Vein Map Unilateral Lt ENRIQUE, Lower Extremities DVT Study, Lower Extremity Left, Venous Duplex Lower Extremity Bilateral. Indications for Study:Pre-op CABG, Pre-Op clearance and Pre-op for vein harvesting. Appropriate Use Criteria:6 Allergies - Other:(Codeine). - Codiene. - Morphine. Patient Status:Routine. Study Location:Vascular Lab. Technical Quality:Adequate visualization. Velocities are measured in cm/s ; Diameters are measured in cm Left Lower Extremities DVT Study Measurements Left 2D and Doppler Measurements + + + + +------+------+ + !Location !Visualized!Compressibility!Thrombosis!Signal!Reflux!Reflux ! ! ! ! ! ! ! !(sec) ! + + + + +------+------+ + !GSV Thigh !Yes !Yes !None ! ! ! ! + + + + +------+------+ + !Common !Yes !Yes !None !Phasic! ! ! !Femoral ! ! ! ! ! ! ! + + + + +------+------+ + !Prox !Yes !Yes !None !Phasic! ! ! !Femoral ! ! ! ! ! ! ! + + + + +------+------+ + !Mid Femoral!Yes !Yes !None !Phasic! ! ! + + + + +------+------+ + !Dist !Yes !Yes !None !Phasic! ! ! !Femoral ! ! ! ! ! ! ! + + + + +------+------+ + !Popliteal !Yes !Yes !None !Phasic! ! ! + + + + +------+------+ + !Gastroc !Yes !Yes !None ! ! ! ! + + + + +------+------+ + !PTV !Yes !Yes !None ! ! ! ! + + + + +------+------+ + !Peroneal !Yes !Yes !None ! ! ! ! + + + + +------+------+ + Velocities are measured in cm/s ; Diameters are measured in cm + ++--------++--------+ !Superficial - Great Saphenous Vein !!Right !!Left ! + ++--------++--------+ !Location !!Diameter!!Diameter! + ++--------++--------+ !Sapheno Femoral Junction !! !!0.71 ! + ++--------++--------+ !GSV High Thigh !! !!0.31 ! + ++--------++--------+ !GSV Mid Thigh !! !!0.27 ! + ++--------++--------+ !GSV Low Thigh !! !!0.37 ! + ++--------++--------+ !GSV Knee !! !!0.54 ! + ++--------++--------+ !GSV High Calf !! !!0.29 ! + ++--------++--------+ !GSV Mid Calf !! !!0.22 ! + ++--------++--------+ !GSV Low Calf !! !!0.36 ! + ++--------++--------+ - Number of vein branches on the left side:1 above knee and 1 below knee. Signature dtt: RADHA ROGERS dtluis alfredo: 05/31/17 1224 Physician Self Edit
--- NOTE | ~2017-05-31 | PUL ---
PATIENT'S NAME: LONDON MOELLER [facility] AGE: 47 Y [address] ROOM: [address] [address] LOCATION: [facility] ADMIT DATE: 06/01/2017 Pulmonary DISCHARGE DATE: FAMILY PHYSICIAN: GENA SCANLON MD ATTENDING PHYSICIAN: Vahe Monae NAME OF PROCEDURE: Bedside Spirometry DATE OF PROCEDURE: May 31, 2017 TECH: STEVE Harris REASON FOR EXAM: Pre-surgical evaluation PROCEDURE PERFORMED: Spirometry with bronchodilator assessment. RESULTS: Spirometry showed pre bronchodilator FVC was 2.63 L, 74% of predicted; post bronchodilator FVC was 2.62 L, 74% of predicted. Pre bronchodilator FEV1 was 2.02 L, 72% of predicted; post bronchodilator FEV1 was 2.03 L, 73% of predicted. FEV1/FVC was 77%. Flow volume loop pattern was normal. IMPRESSION: Normal spirometry. No significant bronchodilator response noted. MD VICKIE CHAUDHRY/rigo /[id number] dtt: 06/06/17 1426 MADELYN MEENAKSHI dtd: 06/03/17 0815
--- NOTE | ~2017-05-31 | PUL ---
PATIENT'S NAME: LONDON MOELLER [facility] AGE: 47 Y [address] ROOM: [address] [address] LOCATION: [facility]U ADMIT DATE: 06/01/2017 Pulmonary DISCHARGE DATE: 06/09/2017 FAMILY PHYSICIAN: William Christensen MD ATTENDING PHYSICIAN: Vahe Monae NAME OF PROCEDURE: Overnight Pulse Oximetry DATE OF PROCEDURE: June 08, 2017 REASON FOR EXAM: Nocturnal hypoxemia RESULTS: The test was done on room air. The total recording time was 9 hours, 21 minutes, and 36 seconds, with a total valid sampling time of 9 hours, 21 minutes, and 24 seconds. Highest pulse was 109, lowest pulse was 81, with a mean pulse of 96. The highest saturation was 98%, lowest SpO2 was 78%, with a mean SpO2 of 87.2%. The three longest continuous times with saturation below 88% were 1 hour 29 minutes, 39 minutes, and 37 minutes. The desaturation event index was 2. PHYSICIAN INTERPRETATION: The patient has evidence of significant nocturnal hypoxia and would qualify for supplemental oxygen as per Medicare criteria. MD VICKIE CHAUDHRY/rigo /[id number] dtt: 06/10/17 1101 , CHRISTOPHER JOSHI dtd: 06/10/17 0657
--- NOTE | ~2017-05-31 | CON ---
PATIENT'S NAME: LONDON MOELLER [facility] AGE: 47 Y [address] ROOM: [id number] [place], [place] [address] LOCATION: GICU ADMIT DATE: 06/01/2017 Consultation DISCHARGE DATE: FAMILY PHYSICIAN: GENA SCANLON MD ATTENDING PHYSICIAN: Vahe Monae HISTORY OF PRESENT ILLNESS: This 47-year-old lady is referred for rehab, GIRP evaluation. She is well known to me. She was previously on rehab unit from 03/25/2017 until 04/01/2017 status post right above-knee amputation. Now, she is referred for rehab evaluation. As I mentioned, is CABG x5 vessels done on 06/01/2017, details on record and is on sternal precautions. MEDICAL HISTORY: As follows: 1. Acute NH with coronary artery disease. 2. Hypertension. 3. Dyslipidemia. 4. History of acute kidney injury. 5. History of tobacco use. 6. Reflux gastric disease. 7. Diabetes type 2. PAST SURGICAL HISTORY: Status post right above-knee amputation and as much as I gather from her, she is not happy with the prosthesis, it is not aligning well and is unsteady. We will follow on it. It feels well at the present time. She has some pain in the precordial region and she is on sternal precautions with a Heart Hugger. She is able to comprehend and express without difficulty. Her voice is clear and not wet and she has been also followed closely for a possible stroke. MRI showed a remote-appearing encephalomalacia on the right occipital lobe and the right posterior cerebral artery distribution infarct. She is showing signs of being unable to express herself well and seemingly she is looking for words when she is answering questions. We will follow. PHYSICAL EXAMINATION: VITAL SIGNS: Blood pressure 113/65, temperature 98.6, pulse 83, respirations 20, she is 5 feet 4 inches tall, and weighs 69.0 kg. GENERAL: She is at the present time able to comprehend, however, when talking, she is looking to her daughter to answer a few words when she is talking and she slow in answering and hesitant to bring the proper words. NEUROLOGICAL: She has no facial droop, no visual cut. Tongue and soft palate are moving symmetrical. Her voice is clear and not wet. She is not weak in PATIENT'S NAME: LONDON MOELLER [facility] AGE: 47 Y [address] ROOM: [place] [id number] LOCATION: [facility] ADMIT DATE: 06/01/2017 Consultation DISCHARGE DATE: FAMILY PHYSICIAN: GENA SCANLON MD ATTENDING PHYSICIAN: Vahe Monae right or left; however, she is feeling that her left side is less coordinated? at times. MEDICATIONS: She is at the present time on the following medications: 1. Insulin aspartate, mild scale. 2. Glucagon. 3. Dextrose. 4. Glucose. 5. Bumex. 6. Aspirin. 7. Albuterol. 8. Xarelto. 9. Cordarone. 10. Juan Manuel-Synephrine. 11. Dulcolax. 12. MOM. 13. Lonetree. 14. Neurontin. 15. NaCl 0.9%. 16. Zofran. 17. Demerol. 18. Calcium chloride. 19. Sodium bicarbonate. 20. Dextrose 5%. 21. Mag sulfate. 22. KCl. 23. Cardene. 24. Nitroglycerin. 25. Epinephrine. 26. Oxycodone. 27. Nicotine patch. 28. Pepcid. 29. Tylenol. 30. Benadryl. 31. Norvasc. ASSESSMENT AND PLAN: At the present time, we will put her on sternal precautions and bedside therapy, PT/OT and speech. Please see the orders. I plan to take her for intensive rehabilitation for about 2-3 weeks aiming to discharge modified independently. She is okayed by her surgeon, Dr. Monae. Thank you for this referral. All the above was explained to her and to her daughter. They verbalized understanding and agreement. PATIENT'S NAME: LONDON MOELLER [facility] AGE: 47 Y [address] ROOM: [place] [id number] LOCATION: [facility] ADMIT DATE: 06/01/2017 Consultation DISCHARGE DATE: FAMILY PHYSICIAN: GENA SCANLON MD ATTENDING PHYSICIAN: Vahe Monae MD CASSIE NINA/modl /[id number] d: 06/04/17 1043 t: 06/05/17814, CONSULTATION REPORT
--- NOTE | ~2017-05-31 | CON ---
PATIENT'S NAME: LONDON MOELLER [facility] AGE: 47 Y [address] ROOM: [address] [place], [place] [address] LOCATION: GICU ADMIT DATE: 06/01/2017 Consultation DISCHARGE DATE: FAMILY PHYSICIAN: GENA SCANLON MD ATTENDING PHYSICIAN: Vahe Monae DATE OF CONSULTATION: 06/04/2017 TIME: 10:15 a.m. CHIEF COMPLAINT: New subacute stroke noted on CT. HISTORY OF PRESENT ILLNESS: The patient was in the hospital for a bypass surgery on 06/01/2017. Yesterday, she did have a CT on 06/03/2017 that showed a new area of decreased attenuation in the left frontal lobe. There was some slight effacement of the sulci with this. This appeared to be subacute. Also seen was an area at the right occipital lobe and right cerebral hemisphere of decreased attenuation and some encephalomalacia from an old infarct. We are consulted because the patient has new word-finding issues and aphasia. Her past medical history is mostly vascular in nature. She did have an acute myocardial infarction in February of this year. She definitely has an acute coronary syndrome. She has coronary artery disease that was multivessel that led to her CABG on the . She also had an ischemic right leg that resulted in post [id number]-[id number] amputation. She also suffers from hypertension and hyperlipidemia. She was a smoker, but states she has quit, but she certainly has smoked in the last 12 months. She was on dual platelet therapy before the CABG and also on statin therapy. During the last several days, she has been on a Juan Manuel-Synephrine drip to keep her MAP greater than 70. Her blood pressures have been anywhere from 90 to 100 systolic. Her daughter is at the bedside to offer history as well as the patient. The patient states she has difficulty saying words, and when the nurse did a stroke scale yesterday after the CT, said the inappropriate word for feather. She definitely has to think about words when she says them, she states. She is able to converse with us and let us know what her history has been. PAST MEDICAL HISTORY: Includes: 1. Coronary artery disease, status post CABG. 2. Type 2 diabetes. 3. Hypertension. 4. Hyperlipidemia. 5. Tobacco dependence, has quit within the last months. PATIENT'S NAME: SUNNI, LONDON L [facility] AGE: 47 Y [address] ROOM: [address] [place], [place] [address] LOCATION: [facility] ADMIT DATE: 06/01/2017 Consultation DISCHARGE DATE: FAMILY PHYSICIAN: GENA SCANLON MD ATTENDING PHYSICIAN: Vahe Monae FAMILY HISTORY: The patient has significant coronary artery disease in both her parents. SOCIAL HISTORY: The patient has quit smoking. She denies any alcohol or drug use. REVIEW OF SYSTEMS: All systems have been reviewed and are negative except those mentioned in the HPI. PHYSICAL EXAMINATION: VITAL SIGNS: She is afebrile. Her blood pressure is 101/62, respiratory rate 18, pulse 64, and saturating 94% on 4 L of oxygen. GENERAL: The patient is awake, alert, and able to answer our questions. It is obvious she has pain with coughing and movement. HEENT: Her head is normocephalic and atraumatic. SKIN: Well-healing sternal and right radial incisions. Stump is wrapped without any drainage. HEART: S1 and S2. Regular rate and rhythm noted. NEUROLOGICAL: Her pupils are equal and reactive. She is able to tell us her history. Her language is fluent, although sometimes she has to stop to think of a word. She mispronounces words at times. There is no dysphasia noted. Her cranial nerves 2 through 12 are intact. Her NIH stroke scale is 1 for the aphasia. DIAGNOSTIC DATA: As noted, there is a new area in the left frontal lobe which is a subacute ischemic infarct. This finding is new since imaging on 04/30/2016, but appears to have happened in the last 72 hours. There is the large encephalomalacia at the right cerebral hemisphere. ASSESSMENT AND PLAN: 1. New subacute left frontal stroke. Fortunately, the only symptoms that are elicited from exam are word-finding issues. These have improved, according to her family, even in 24 hours. We will get Speech to work with the patient on this aphasia. She should do very well since the area of stroke is small. 2. Stroke prevention. The patient is on Xarelto. She is also on a statin. Carotids done show her right carotid at 1% to 39% and her left carotid 40% to 59%. LDL was 88. She has had no vision changes. The only thing left for her to do is to continue to remain tobacco-free to avoid another stroke. 3. The daughter brought on the question of possible seizure-like activity. The patient does close her eyes and kind to roll her eyes back. It lasts PATIENT'S NAME: LONDON MOELLER [facility] AGE: 47 Y [address] ROOM: [place] [address] LOCATION: [facility] ADMIT DATE: 06/01/2017 Consultation DISCHARGE DATE: FAMILY PHYSICIAN: GENA SCANLON MD ATTENDING PHYSICIAN: Vahe Monae about 10 seconds. The patient denies this to be a seizure and states it is usually pain related. We will just keep an eye on this to make sure it is not a seizure. Her daughter definitely wanted the patient to have an MRI. It was explained to the patient that was certainly reasonable; however, the patient did not want to have one. This would not change the plan of care for us. The plan of care was discussed with the patient and her daughter. It was also discussed with Dr. Monae. We would like to thank you for the opportunity to participate in this patient's care. If you have any questions, please do not hesitate to notify us. CANDACE YOUNGER APRN FOR CORBY BUNCH MD PP/reggie /[id number] d: 06/04/17 1245 t: 06/08/17 1656, CONSULTATION REPORT
--- NOTE | ~2017-05-31 | ENPV ---
Carotid Duplex Study Demographics Patient Name LONDON MOELLER Date of Study 05/31/2017 Patient Number [id number] Gender Female Date of 1970 Age 47 Visit Number [id number] Height Accession Number [id number] Weight Room Number G6201 BSA BMI Referring Dov Le MD Physician DO Physician Amparo Campbell MD Physician Ordering Physician Dov Marsh DO Adolescent Counselor Copyright Clerk Jun Bernard, T Conclusions Summary The right proximal internal carotid artery has mild, 1-39%, stenosis by heterogeneous plaque. The left proximal internal carotid artery has moderate, 40-59%, stenosis by heterogeneous plaque. Bilateral vertebral arteries are antegrade. Procedure Type of Study: Cerebral:Carotid, Carotid Doppler Bilateral. Indications for Study:Pre-op CABG. Appropriate Use Criteria:6 Allergies - Other:(Codeine). - Codiene. - Morphine. Patient Status:Routine. Study Location:Imaging Center. Technical Quality:Adequate visualization. Velocities are measured in cm/s ; Diameters are measured in cm Carotid Right Measurements Carotid Left Measurements + +--------+--------+ + + + +--------+ --------+ + + !Location !PSV !EDV !Angle !%Stenosis ! !Location !PSV ! EDV !Angle !%Stenosis ! + +--------+--------+ + + + +--------+ --------+ + + !Prox CCA !127 !31 !56 ! ! !Prox CCA !98 ! 37 !44 ! ! + +--------+--------+ + + + +--------+ --------+ + + !Dist CCA !86 !34 !56 ! ! !Dist CCA !118 ! 44 !60 ! ! + +--------+--------+ + + + +--------+ --------+ + + !Prox ICA !79 !34 !56 !1-39% ! !Prox ICA !118 ! 50 !60 !40-59% ! + +--------+--------+ + + + +--------+ --------+ + + !Dist ICA !70 !34 !56 ! ! !Dist ICA !83 ! 38 !34 ! ! + +--------+--------+ + + + +--------+ --------+ + + !Prox ECA !210 ! !56 ! ! !Prox ECA !146 ! !60 ! ! + +--------+--------+ + + + +--------+ --------+ + + !Vertebral !35 ! !56 ! ! !Vertebral !55 ! !30 ! ! + +--------+--------+ + + + +--------+ --------+ + + !Subclavian !124 ! ! ! ! !Subclavian !103 ! ! ! ! + +--------+--------+ + + + +--------+ --------+ + + - There is antegrade vertebral flow noted on the right side. - Add'l Measurements:ICAPS V/CCAPSV 1.2.ICAEDV/CCAEDV 1.37. - Add'l Measurements:ICAPSV/CCAPSV 0.62.ICAEDV/CCAEDV 1.1. Signature dtt: RADHA ROGERS: 05/31/17 1214 Physician Self Edit
--- NOTE | ~2017-05-31 | ENPV ---
Vascular Upper Extremities PVR Procedure Demographics Patient Name LONDON MOELLER Date of Study Patient Number [id number] Gender Female Date of 1970 Age 47 Visit Number [id number] Height Accession Number [id number] Weight Room Number G6201 BSA BMI Referring Dov Marsh Interpreting Chad Le MD Physician DO Physician Amparo Campbell MD Physician Ordering Physician Dov Marsh Topper Packer DO Coater Associate Jun Bernard, T Conclusions Summary The right upper extremity appears to have a complete chan arch. The left chan arch was unable to be determined. Procedure Type of Study: Extremities Arteries:Upper Extremities PVR, Radial Allens Doppler. Indications for Study:Pre-op CABG, Pre-op for arterial harvesting and Pre-Op clearance. Appropriate Use Criteria:6 Allergies - Other:(Codeine). - Codiene. - Morphine. Patient Status:Routine. Study Location:Vascular Lab. Technical Quality:Adequate visualization. Signature dtt: RADHA ROGERS dtd: Physician Self Edit
--- NOTE | ~2017-05-31 | ENPV ---
Vascular Upper Extremities PVR Procedure Demographics Patient Name LONDON MOELLER Date of Study 05/31/2017 Patient Number [id number] Gender Female Date of 1970 Age 47 Visit Number [id number] Height Accession Number [id number] Weight Room Number G6311 BSA BMI Referring Dov Marsh Interpreting Chad Le MD Physician DO Physician Amparo Campbell MD Physician Ordering Physician Dov Marsh DO Fleet Administrator Human Resources Consultant Jun Bernard, T Conclusions Summary The right upper extremity appears to have a complete chan arch. The left chan arch was unable to be determined. Procedure Type of Study: Extremities Arteries:Upper Extremities PVR, Radial Allens Doppler. Indications for Study:Pre-op CABG, Pre-op for arterial harvesting and Pre-Op clearance. Appropriate Use Criteria:6 Allergies - Other:(Codeine). - Codiene. - Morphine. Patient Status:Routine. Study Location:Vascular Lab. Technical Quality:Adequate visualization. Signature dtt: RADHA ROGERS dtd: 05/31/17 0000 Physician Self Edit
--- NOTE | ~2017-05-31 | OR ---
PATIENT'S NAME: LONDON MOELLER [facility] AGE: 47 Y [address] ROOM: [address] [place], [place] [address] LOCATION: GPCU ADMIT DATE: 06/01/2017 OR/Procedure Report DISCHARGE DATE: FAMILY PHYSICIAN: GENA SCANLON MD ATTENDING PHYSICIAN: Vahe Monae SURGEON: Vahe Monae DO GUEST RELATIONS OFFICER: DATE OF PROCEDURE: 06/01/2017 PREOPERATIVE DIAGNOSES: Multivessel coronary artery disease. Secondary diagnosis includes poorly controlled diabetes, poorly controlled hypertension, history of vasculopathy with right lower extremity amputation. POSTOPERATIVE DIAGNOSES: Multivessel coronary artery disease. Secondary diagnosis includes poorly controlled diabetes, poorly controlled hypertension, history of vasculopathy with right lower extremity amputation. PROCEDURES PERFORMED: Coronary artery bypass grafting x6 with left internal mammary artery to the left anterior descending, right radial artery to the posterior descending artery, saphenous vein graft sequential from posterolateral septal branch to acute marginal branch, saphenous vein graft to the diagonal, saphenous vein graft to the obtuse marginal. 1. Right radial artery harvest. 2. CABG with all the bypasses. REFERRING PHYSICIAN: Dr. Kimbrough. BRIEF HISTORY: Ms. Moeller is a 47-year-old white female with the above-noted diagnosis. She had a quite complicated hospitalization at the time of her initial catheterization as described above in the secondary diagnoses. She is recovered to a point at this time she is ready for revascularization. She has been brought to the operative suite today. Sterilely prepped and draped for right radial artery harvest, sternotomy, and lower extremity vein harvest. Appropriate time-out was held and we began harvest of the right radial artery and concurrently the left lower extremity vein graft. Incision was created over the radial artery. Dissection was carried down to the level of the artery. Artery was identified. A bulldog was applied. Saturation monitor was on the right thumb. No change in saturation index. Waveforms were noted. The bulldog was removed. An incision was carried out further up the arm. Dissection was carried out with electrocautery sharply and then we dissected free the right radial artery dividing the arterial branches with surgical clips. The artery was then divided and each end ligated with medium-size surgical clips. It was then passed off and placed an arterial solution with papaverine; and the incision was then closed in a layered fashion with 0 Vicryl, 2-0 Vicryl, and 4-0 Monocryl. It was then wrapped with an Moses wrap PATIENT'S NAME: LONDON MOELLER [facility] AGE: 47 Y [address] ROOM: [address] [place], [place] [address] LOCATION: GPCU ADMIT DATE: 06/01/2017 OR/Procedure Report DISCHARGE DATE: FAMILY PHYSICIAN: GENA SCANLON MD ATTENDING PHYSICIAN: Vahe Monae and tucked into the body and then after changing gown and gloves, the sternal incision was made and sternum was divided in the midline. Left internal mammary artery was identified and then harvested utilizing surgical clips and electrocautery. Prior to its division, the patient was fully heparinized. The mammary was then divided and prepared for bypass. Mammary retractor was removed and a sternal retractor was placed. Pericardium was opened. Pericardial well created and cannulation sutures placed in the ascending aorta and right atrium for bypass and cardioplegia cannulas, and the patient was cannulated and connected to the bypass pump without difficulty. The vein was then prepared for bypass. Cardiopulmonary bypass was now initiated and a crossclamp applied. Antegrade and retrograde cardioplegia was given along with topical cold saline and the heart arrested without difficulty. The posterior descending artery, which did not show very well on the catheterization, was identified. It was totally occluded. The right radial artery was anastomosed to this in an end-to-side fashion with 7-0 Prolene. It was then connected to the cardioplegia system. Another 500 mL of graft and retrograde cardioplegia were given. This was done after each distal anastomosis. Posterolateral branch was then identified, end-to-side vein graft anastomosed to it, and sized appropriately. Another 500 mL of graft and retrograde cardioplegia were given. We then performed a wvmh-kf-[id number] anastomosis of the posterolateral graft to the acute marginal branch, which was quite sizable and then carried out other venous distal anastomosis to the obtuse marginal and the diagonal. Lastly, we anastomosed to the left internal mammary artery to the left anterior descending artery. Once this was complete, the bulldog was removed from the mammary, showing good distal flow down the LAD. Cross-clamp was now removed and a partial occlusion clamp applied. Three of our four grafts were anastomosed to the ascending aorta under partial occlusion, this was the right radial. The vein graft to the posterior lateral and acute marginal and the vein graft to the obtuse marginal. This was done with 4-0 punch and 6-0 Prolene during this time. Warm blood was given via the retrograde cannula and also down each of the grafts. We now removed the partial occlusion clamp, de-aired our grafts, and gave distal flow. We then performed end-to-side [id number]-ebgg anastomosis from the diagonal to the obtuse marginal again with 7-0 Prolene. With this completed and all grafts de-aired, distal sites were hemostatic, proximal sites were hemostatic. We discontinued warm blood and removed the retrograde cannula. Two atrial and ventricular temporary wires were placed, ventilations were initiated, and we weaned from cardiopulmonary bypass without difficulty. However, shortly after bypass was discontinued, we were working on removing the venous cannula when the patient became hypotensive and I proceeded back onto bypass. I inspected each of the grafts. Each of the grafts had noticeable air in the grafts and we de-aired each of the grafts and started epinephrine and then weaned from bypass without difficulty. The patient rapidly came off bypass and ABDIAS showed no evidence of intracardiac air either the first or the second time of coming off bypass. The venous cannula was PATIENT'S NAME: LONDON MOELLER [facility] AGE: 47 Y [address] ROOM: [place] [address] [facility] ADMIT DATE: 06/01/2017 OR/Procedure Report DISCHARGE DATE: FAMILY PHYSICIAN: GENA SCANLON MD ATTENDING PHYSICIAN: Vahe Monae removed. Appropriate volume returned from the pump to the patient. The ascending aortic cannula was now removed. Protamine was given. Two atrial and ventricular temporary pacemaking wires had previously been placed. Three chest tubes were placed, one left pleural, one posterior pericardial, one anterior mediastinal. Soft tissues were irrigated again with antibiotic- infused saline and then the sternum approximated with ZipFix system. The heart was quite contractile and we were actually able to wean off epinephrine prior to leaving the operative suite. Soft tissues were closed in a layered fashion. All sponge, instrument, and needle counts were correct. The patient was transferred to the intensive care unit in stable condition. DO Segun MORFIN /[id number] d: 06/06/17 2147 t: 06/07/17 0715, OPERATIVE SUMMARY
[~2017-05-31 09:59] MED LIST changes: -BUMETANIDE2 MG PO; -CORDARONE,PACE200 MG PO; -K-TAB 10MEQ10 MEQ PO; -LEVOTHROID (SY50 MCG PO; -MIRALAX17 GM PO; -NICORETTE4 MG PO; -NORCO 5-325 TA1 EACH PO; -NORVASC2.5 MG PO; -PROVENTIL OR V6.7 GM INH; -XARELTO20 MG PO
[2017-05-31 10:38] LABS: HEMOGLOBIN 13.6 g/dL (10.0-15.0); MPV 9.6 fl (9.4-12.4); RDW-CV 14.3 % (11.9-14.6); WBC 8.9 K/uL (4.0-11.0)
[2017-05-31 10:39] LABS: MCH 31.1 pg (27.0-34.0); RBC 4.37 M/uL (3.50-5.50)
[2017-05-31 10:40] LABS: MCV 91.5 fl (83.0-98.0)
[2017-05-31 10:46] LABS: INR - (THERAPEUTIC) 0.9 (0.92-1.07); PROTIME 9.4 SECONDS (9.8-11.4)
[2017-05-31 11:00] LABS: ALBUMIN 3.4 gm/dL (3.5-5.0); ANION GAP 11.9 (10.0-19.0); CREATININE 0.8 mg/dL (0.5-1.1); POTASSIUM 3.9 mMol/L (3.7-5.1); TOTAL PROTEIN 7.9 g/dL (6.0-8.4)
[2017-05-31 11:02] LABS: TOTAL BILIRUBIN 0.3 mg/dL (0.0-1.5)
[2017-05-31] MEDS ORDERED: K-TAB 10MEQ10 MEQ PO (14:42)
[2017-05-31] MEDS ORDERED: NOVOLOG100 UNIT/M SUB-Q (14:43)
[2017-05-31] MEDS ORDERED: PERCOCET 10-321 EACH PO (14:46)
[2017-05-31] MEDS ORDERED: NICORETTE4 MG PO (14:48)
[2017-05-31] MEDS ORDERED: PROVENTIL OR V6.7 GM INH (14:50)
[2017-05-31 15:55] LABS: BILIRUBIN URINE NEGATIVE (NEGATIVE); BLOOD URINE 25 /UL (NEGATIVE); COLOR URINE YELLOW (YELLOW); GLUCOSE URINE 1000 mg/dL (NEGATIVE); KETONE URINE NEGATIVE (NEGATIVE); LEUKOCYTES URINE 500 /UL (NEGATIVE); NITRITE URINE NEGATIVE (NEGATIVE); PROTEIN URINE 15 mg/dL (NEGATIVE); SPEC GRAVITY URINE 1.015 (1.003-1.035); TURBIDITY URINE 2+ (CLEAR); UROBILINOGEN URINE NORMAL (NORMAL)
[2017-05-31 16:05] LABS: WBC URINE FULL FIELD #/HPF (NEGATIVE)
[2017-05-31 16:07] LABS: WBC CLUMPS URINE MANY (NEGATIVE)
[2017-05-31 16:08] LABS: BACTERIA URINE MODERATE (NEGATIVE)
[2017-06-01 13:37] LABS: HEMATOCRIT 32.1 % (33.0-46.0); MCH 31.6 pg (27.0-34.0); MCHC 34.3 gm/dL (32.0-36.5); MCV 92.2 fl (83.0-98.0); MPV 9.4 fl (9.4-12.4); RBC 3.48 M/uL (3.50-5.50); RDW-CV 14.2 % (11.9-14.6); WBC 12.3 K/uL (4.0-11.0)
[2017-06-01 13:45] LABS: PLATELET COUNT 202 K/uL (150-450)
[2017-06-01 13:51] LABS: BICARBONATE 26.5 mmol/L (18.0-23.0); PCO2 41 mmHg (35-45); PO2 141 mmHg (80-90); POTASSIUM 4.3 mEq/L (3.7-5.1); SODIUM 135 mEq/L (135-145)
[2017-06-01 13:52] LABS: BICARBONATE 25.9 mmol/L (18.0-23.0); PCO2 40 mmHg (35-45); PO2 162 mmHg (80-90); POTASSIUM 3.3 mEq/L (3.7-5.1); SODIUM 136 mEq/L (135-145)
[2017-06-01 13:53] LABS: BICARBONATE 29.3 mmol/L (18.0-23.0); PCO2 44 mmHg (35-45); PO2 262 mmHg (80-90)
[2017-06-01 13:54] LABS: POTASSIUM 4.4 mEq/L (3.7-5.1); SODIUM 137 mEq/L (135-145)
[2017-06-01 13:54] LABS: BICARBONATE 28.4 mmol/L (18.0-23.0); PCO2 47 mmHg (35-45); PO2 253 mmHg (80-90); POTASSIUM 4.9 mEq/L (3.7-5.1); SODIUM 137 mEq/L (135-145)
[2017-06-01 13:55] LABS: BICARBONATE 27.3 mmol/L (18.0-23.0); PCO2 49 mmHg (35-45); PO2 215 mmHg (80-90)
[2017-06-01 13:56] LABS: PCO2 54 mmHg (35-45)
[2017-06-01 13:56] LABS: POTASSIUM 4.7 mEq/L (3.7-5.1); SODIUM 139 mEq/L (135-145)
[2017-06-01 13:57] LABS: BICARBONATE 24.7 mmol/L (18.0-23.0); PO2 41 mmHg (80-90)
[2017-06-01 13:58] LABS: POTASSIUM 3.7 mEq/L (3.7-5.1); SODIUM 139 mEq/L (135-145)
[2017-06-01 13:58] LABS: INR - (THERAPEUTIC) 4.95 (0.92-1.07)
[2017-06-01 14:02] LABS: PROTIME 52.8 SECONDS (9.8-11.4)
[2017-06-01 14:05] LABS: PTT 87 SECONDS (25-32)
[2017-06-01 14:10] LABS: BICARBONATE 26.8 mmol/L (18.0-23.0); PCO2 52 mmHg (35-45)
[2017-06-01 14:11] LABS: PO2 105 mmHg (80-90)
[2017-06-01 14:24] LABS: ANION GAP 9.9 (10.0-19.0); BLOOD UREA NITROGEN 11 mg/dL (6-24); CALCIUM 8.5 mg/dL (8.5-10.5); CHLORIDE 110 mMol/L (96-110); CO2 26 mMol/L (22-32); CREATININE 0.7 mg/dL (0.5-1.1); POTASSIUM 3.9 mMol/L (3.7-5.1); SODIUM 142 mMol/L (135-145)
[2017-06-01 14:31] LABS: ALPHA ANGLE 62 degrees (70-81); CLOTTING TIME 233 seconds (43-82); MAXIMUM CLOT FIRMNESS 62 mm (51-72)
[2017-06-02 04:36] LABS: PCO2 49 mmHg (35-45); PO2 66 mmHg (80-90)
[2017-06-02 04:51] LABS: ANION GAP 9.9 (10.0-19.0); BLOOD UREA NITROGEN 10 mg/dL (6-24); CALCIUM 7.4 mg/dL (8.5-10.5); CHLORIDE 108 mMol/L (96-110); CO2 26 mMol/L (22-32); CREATININE 0.6 mg/dL (0.5-1.1); POTASSIUM 3.9 mMol/L (3.7-5.1); SODIUM 140 mMol/L (135-145)
[2017-06-02 04:55] LABS: HEMATOCRIT 28.1 % (33.0-46.0); HEMOGLOBIN 9.4 g/dL (10.0-15.0); MCHC 33.5 gm/dL (32.0-36.5); MCV 92.7 fl (83.0-98.0); MPV 10.2 fl (9.4-12.4); RBC 3.03 M/uL (3.50-5.50); RDW-CV 14.5 % (11.9-14.6); WBC 13.8 K/uL (4.0-11.0)
[2017-06-02 09:31] LABS: MAGNESIUM 2.1 mg/dL (1.8-2.6); POTASSIUM 4.9 mMol/L (3.7-5.1)
[2017-06-03 04:42] LABS: ANION GAP 8.6 (10.0-19.0); BLOOD UREA NITROGEN 9 mg/dL (6-24); CALCIUM 8.8 mg/dL (8.5-10.5); CHLORIDE 105 mMol/L (96-110); CO2 29 mMol/L (22-32); CREATININE 0.5 mg/dL (0.5-1.1); POTASSIUM 3.6 mMol/L (3.7-5.1); SODIUM 139 mMol/L (135-145)
[2017-06-03 04:53] LABS: HEMOGLOBIN 9.7 g/dL (10.0-15.0); MCH 31.3 pg (27.0-34.0); MCHC 33.4 gm/dL (32.0-36.5); MCV 93.5 fl (83.0-98.0); MPV 10.2 fl (9.4-12.4); RBC 3.1 M/uL (3.50-5.50); RDW-CV 14.6 % (11.9-14.6); WBC 14.3 K/uL (4.0-11.0)
[2017-06-04 03:58] LABS: ALBUMIN 3.4 gm/dL (3.5-5.0); ANION GAP 8.3 (10.0-19.0); BLOOD UREA NITROGEN 12 mg/dL (6-24); CALCIUM 8.5 mg/dL (8.5-10.5); CHLORIDE 102 mMol/L (96-110); CO2 32 mMol/L (22-32); CREATININE 0.6 mg/dL (0.5-1.1); PHOSPHORUS 2.3 mg/dL (2.5-4.9); POTASSIUM 3.3 mMol/L (3.7-5.1); SODIUM 139 mMol/L (135-145)
[2017-06-04 04:09] LABS: BASOPHIL % 0.4 %; EOSINOPHIL # 0.1 K/uL (0.0-0.5); EOSINOPHIL % 0.5 %; HEMATOCRIT 24.7 % (33.0-46.0); IMMATURE GRANULOCYTE # 0.1 K/uL (0.0-0.3); IMMATURE GRANULOCYTE % 0.5 %; LYMPHOCYTE # 2.6 K/uL (0.8-4.0); LYMPHOCYTE % 23.2 %; MCH 30.4 pg (27.0-34.0); MCHC 32.4 gm/dL (32.0-36.5); MCV 93.9 fl (83.0-98.0); MONOCYTE % 9.1 %; MPV 10.2 fl (9.4-12.4); NEUTROPHIL # (ANC) 7.3 K/uL (1.8-7.8); NEUTROPHIL % 66.3 %; NRBC % 0 /100WBC (0-0.00); PLATELET COUNT 172 K/uL (150-450); RBC 2.63 M/uL (3.50-5.50); RDW-CV 14.6 % (11.9-14.6)
[2017-06-04 10:54] LABS: POTASSIUM 3.6 mMol/L (3.7-5.1)
[2017-06-05 06:31] LABS: BASOPHIL # 0.1 K/uL (0.0-0.2); BASOPHIL % 0.6 %; EOSINOPHIL # 0.2 K/uL (0.0-0.5); EOSINOPHIL % 1.7 %; HEMATOCRIT 27.7 % (33.0-46.0); HEMOGLOBIN 9.3 g/dL (10.0-15.0); IMMATURE GRANULOCYTE # 0.1 K/uL (0.0-0.3); IMMATURE GRANULOCYTE % 0.6 %; LYMPHOCYTE # 2.2 K/uL (0.8-4.0); LYMPHOCYTE % 24.7 %; MCH 31.3 pg (27.0-34.0); MCHC 33.6 gm/dL (32.0-36.5); MCV 93.3 fl (83.0-98.0); MONOCYTE # 0.8 K/uL (0.0-1.0); MONOCYTE % 9.1 %; MPV 9.9 fl (9.4-12.4); NEUTROPHIL # (ANC) 5.5 K/uL (1.8-7.8); NEUTROPHIL % 63.3 %; NRBC % 0 /100WBC (0-0.00); PLATELET COUNT 180 K/uL (150-450); RBC 2.97 M/uL (3.50-5.50); RDW-CV 14.5 % (11.9-14.6); WBC 8.7 K/uL (4.0-11.0)
[2017-06-05 06:35] LABS: ALBUMIN 3.1 gm/dL (3.5-5.0); ANION GAP 10.1 (10.0-19.0); BLOOD UREA NITROGEN 15 mg/dL (6-24); CALCIUM 8.6 mg/dL (8.5-10.5); CHLORIDE 102 mMol/L (96-110); CO2 31 mMol/L (22-32); CREATININE 0.5 mg/dL (0.5-1.1); PHOSPHORUS 2.7 mg/dL (2.5-4.9); POTASSIUM 3.1 mMol/L (3.7-5.1); SODIUM 140 mMol/L (135-145)
[2017-06-06 05:42] LABS: ANION GAP 7.4 (10.0-19.0); BLOOD UREA NITROGEN 13 mg/dL (6-24); CALCIUM 8.5 mg/dL (8.5-10.5); CHLORIDE 104 mMol/L (96-110); CO2 33 mMol/L (22-32); CREATININE 0.5 mg/dL (0.5-1.1); POTASSIUM 3.4 mMol/L (3.7-5.1); SODIUM 141 mMol/L (135-145)
[2017-06-06 05:50] LABS: HEMATOCRIT 27.8 % (33.0-46.0); HEMOGLOBIN 9.2 g/dL (10.0-15.0); MCH 31.2 pg (27.0-34.0); MCHC 33.1 gm/dL (32.0-36.5); MCV 94.2 fl (83.0-98.0); MPV 9.6 fl (9.4-12.4); RBC 2.95 M/uL (3.50-5.50); RDW-CV 14.4 % (11.9-14.6); WBC 7.2 K/uL (4.0-11.0)
[2017-06-07 04:07] LABS: ALBUMIN 2.8 gm/dL (3.5-5.0); ANION GAP 8.9 (10.0-19.0); BLOOD UREA NITROGEN 10 mg/dL (6-24); CALCIUM 8.6 mg/dL (8.5-10.5); CHLORIDE 105 mMol/L (96-110); CO2 30 mMol/L (22-32); CREATININE 0.5 mg/dL (0.5-1.1); MAGNESIUM 2.1 mg/dL (1.8-2.6); PHOSPHORUS 3.7 mg/dL (2.5-4.9); POTASSIUM 3.9 mMol/L (3.7-5.1); SODIUM 140 mMol/L (135-145)
[2017-06-08 04:19] LABS: ALBUMIN 2.8 gm/dL (3.5-5.0); ANION GAP 11.2 (10.0-19.0); CALCIUM 9.2 mg/dL (8.5-10.5); PHOSPHORUS 4.3 mg/dL (2.5-4.9); POTASSIUM 4.2 mMol/L (3.7-5.1)
[2017-06-08 04:22] LABS: CREATININE 0.8 mg/dL (0.5-1.1)
[2017-06-09] MEDS ORDERED: NORVASC2.5 MG PO (14:53)
[2017-06-09] MEDS ORDERED: CORDARONE,PACE200 MG PO (14:53)
[2017-06-09] MEDS ORDERED: LEVOTHROID (SY50 MCG PO (14:54)
[2017-06-09] MEDS ORDERED: XARELTO20 MG PO (14:55)
[2017-06-09] MEDS ORDERED: MIRALAX17 GM PO (14:55)
[2017-06-09] MEDS ORDERED: NORCO 5-325 TA1 EACH PO (14:57)
[2017-06-09] MEDS ORDERED: BUMETANIDE2 MG PO (15:04)
== END 2017-06-09 16:30 | disposition disaster alternative care site (69) | DRG 235 ==
LOC: GPOC 09:59 → GLAB 09:59 → GICU 06-01 05:06 → EDSTATUS 06-01 10:00 → GICU 06-04 12:57 → GPCU 06-05 23:10
PROVIDERS: Nurse Practitioner Acute Care; ADMIT Thoracic Surgery (Cardiothoracic Vascular Surgery)
DX: I25.10 Atherosclerotic heart disease of native coronary artery without angina pectoris (principal); J95.2 Acute pulmonary insufficiency following nonthoracic surgery; I63.9 Cerebral infarction, unspecified; I24.9 Acute ischemic heart disease, unspecified; N39.0 Urinary tract infection, site not specified; E78.5 Hyperlipidemia, unspecified; E11.65 Type 2 diabetes mellitus with hyperglycemia; I10 Essential (primary) hypertension; K21.9 Gastro-esophageal reflux disease without esophagitis; Z89.611 Acquired absence of right leg above knee; Z87.891 Personal history of nicotine dependence; Z23 Encounter for immunization; E87.6 Hypokalemia; E03.9 Hypothyroidism, unspecified
CPT/HCPCS: C1751; J0171; J0282; J0583; J0690; J1170; J1200; J1644; J1720; J1885; J1940; J2150; J2250; J2270; J2370; J2405; J2440; J2916; J3475; J3480; J3490; J7030; J7040; J7050; J7060; J7121; P9016; P9045; P9047; Q4081